=== PATIENT | female | born 1940 | race Caucasian/White ===

== ENCOUNTER → 2022-02-12 15:14 | Outpatient (BNVA) | payer MEDICARE, OTHER, SELFPAY | PROVIDERS: Family Provider Family Medicine; Visit Provider Registered Nurse Neonatal Intensive Care | DX: Z20.822 Contact with and (suspected) exposure to COVID-19 (principal); U07.1 COVID-19 | CPT/HCPCS: 87426 ==

== ENCOUNTER 2023-01-19 16:11 | Emergency (ER) | payer MEDICARE, OTHER, SELFPAY ==
[2023-01-19 16:35] VITALS: BP 159/92; PULSE 86; RESP 16; TEMP 36.4; O2SAT 94; BMI 27.1
[2023-01-19 16:58] LABS: Basophils % 0.5 %; Eosinophils # 0.1 10^3/uL (0.0-0.8); Eosinophils % 2.9 %; Hematocrit 42.9 % (37.0-47.0); Lymphocytes # 0.9 10^3/uL (0.8-4.8); Lymphocytes % 21.9 %; Mean Corpuscular HGB Conc 32.6 g/dL (30.0-36.0); Mean Corpuscular Volume 97.9 fl (81-99); Mean Platelet Volume 9.4 fL (7.4-10.4); Monocytes # 0.3 10^3/uL (0.2-0.9); Monocytes % 7.2 %; Neutrophils # 2.79 10^3/uL (1.8-7.7); Neutrophils % 67.3 %; Nucleated Red Blood Cells % 0 %; Platelet Count 171 10^3/cmm (130-400); Red Blood Count 4.38 10^6/uL (4.1-5.3); Red Cell Distribution Width 12.6 % (12.1-15.1); White Blood Count 4.2 10^3/uL (4.0-10.0)
--- NOTE | 2023-01-19 17:12 | XRR_ITS ---
PROCEDURE INFORMATION: Exam: XR Abdomen Exam date and time: 01/19/2023 5:56 PM Age: 82 years old Clinical indication: Abdominal pain; Acute; Prior surgery; Surgery date: 6+ months; Surgery type: Lt hip; Additional info: Abd pain, constipation TECHNIQUE: Imaging protocol: Radiologic exam of the abdomen. Views: Frontal supine view of the abdomen. 1 View. COMPARISON: No relevant prior studies available. FINDINGS: Gastrointestinal tract: [id number] constipation without bowel dilation to indicate obstruction. 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 Left hip arthroplasty changes in place XR/XR abdomen 1V* [id number] IMPRESSION: 1. Degenerative changes throughout the spine with vertebroplasty changes. 2. Ybao-lm-damjbvrg constipation without bowel dilation to indicate obstruction.
[2023-01-19 17:23] LABS: Alanine Aminotransferase 16 U/L (0-33); Albumin Level 4.3 g/dL (3.5-5.2); Alkaline Phosphatase 72 U/L (35-105); Anion Gap 14.2 (5-19); Aspartate Amino Transferase 25 U/L (0-32); Blood Urea Nitrogen 12 mg/dL (8-23); Calcium 9.2 mg/dL (8.5-10.5); Carbon Dioxide 30 mmol/L (22-29); Chloride 102 mmol/L (98-107); Globulin 2.6 g/dL (1.3-4.6); Glucose 95 mg/dL (65-115); Lipase 15 U/L (13-60); Osmolality Calculated 294 mOsm/kg (285-295); Potassium 4.2 mmol/L (3.5-5.1); Sodium 142 mmol/L (136-145); Total Bilirubin 0.4 mg/dL (0.15-1.2); Total Protein 6.9 g/dL (6.6-8.7)
[2023-01-19 17:46] LABS: Add Urine Culture? Yes; Add Urine Microscopic? YES; Bacteria Urine 3+ /hpf; Bilirubin Urine Neg (Negative); Blood Urine Neg (Negative); Glucose Urine UA Norm (Normal); Ketones Urine Negative (Negative); Leukocyte Esterase Urine Trace (Negative); Nitrate Urine Positive (Negative); Protein Urine Neg (Negative); Specific Gravity, Urine 1.015 (1.005-1.030); Urine Appearance Hazy (CLEAR); Urine Color Yellow (Yellow); Urobilinogen Urine Norm (Negative); pH Urine 5 (5-7)
--- NOTE | 2023-01-19 19:36 | XRR_ITS ---
PROCEDURE INFORMATION: Exam: XR Left Hip Exam date and time: 01/19/2023 7:52 PM Age: 82 years old Clinical indication: Hip pain; Left hip; Prior surgery; Surgery date: 6+ months; Surgery type: Lt hip; Additional info: Hip pain no trauma TECHNIQUE: Imaging protocol: Radiologic exam of the left hip. Views: 2 or 3 views hip with pelvis when performed. COMPARISON: CR (ABDOMEN, ) 01/19/2023 5:56 PM FINDINGS: Bones/joints: Left hip arthroplasty changes in place. Soft tissues: Scattered vascular calcifications XR/XR hip LT 2-3V wo/w pel* [id number] IMPRESSION: 1. Left hip arthroplasty changes in place. 2. Scattered vascular calcifications
--- NOTE | 2023-01-19 19:43 | W.ED.ABDPA2 ---
HPI - Abdominal Pain General: Chief Complaint: Abdominal Pain Stated Complaint: severe abd pain Time Seen by Provider: 01/19/23 18:57 History of Present Illness: Presents to the ER with a complaint of left lower abdominal pain/groin pain. Patient denies any nausea vomiting diarrhea pain. This morning patient took an enema because she was constipated and that actually made the pain worse immediately but now she says it is actually made the pain better. Patient is describing more of a sharp stabbing pain in her left hip joint than anything. Patient denies any nausea vomiting fever chills coughs colds congestion etc. has never had any pain like this before patient does have a prosthetic hip in her left side. No known trauma. Review of Systems General: Reports: 10 or more systems reviewed and unremarkable except in HPI and below Physical Exam Const: COMMON NORMALS: no acute distress, average body habitus, patient oriented x3, no limitations, healthy appearing, alert and well nourished HENMT: COMMON NORMALS: normocephalic, atraumatic, hearing grossly normal bilaterally, external ears normal, Normal external nose present and moist oral mucous membranes HEAD & SCALP: normocephalic and atraumatic NOSE: Normal external nose present EXTERNAL EAR: Yes external ears normal Neck/C-Spine: COMMON NORMALS: full ROM, no lymphadenopathy, supple, no meningeal signs, no JVD and Thyroid normal THYROID: Thyroid normal Chest: COMMONS NORMALS: normal inspection of the chest and normal palpation of entire chest wall Resp: COMMON NORMALS: normal respiratory effort, No retractions, No use of accessory muscles and clear to auscultation bilaterally AUSCULTATION: clear to auscultation bilaterally Cardio: COMMON NORMALS: no JVD, regular rate, regular rhythm, S1 normal heart sound present, S2 normal heart sound present, No gallops present (Cardio), No clicks present (Cardio), No murmurs present (Cardio) and No rub (Cardio) RATE: regular rate RHYTHM: regular rhythm HEART SOUNDS: S1 normal heart sound present and S2 normal heart sound present GI: COMMON NORMALS: Normal to inspection, nondistended, normoactive bowel sounds present, Soft to palpation, non-tender, No hepatosplenomegaly present and no masses PALPATION: Yes Soft to palpation and Yes No hepatosplenomegaly present Extremity: NARRATIVE EXTREMITY EXAM: Tenderness to palpate over left anterior hip region. Neuro: COMMON NORMALS: patient oriented x3 SENSORIUM/ORIENTATION: Yes alert MENINGEAL SIGNS: Yes no meningeal signs Course Vital Signs: Vital signs: Vital Signs Temperature 97.6 F 01/19/23 16:35 Pulse Rate 86 01/19/23 16:35 Respiratory Rate 16 01/19/23 16:35 Blood Pressure 159/92 01/19/23 16:35 Pulse Oximetry 94 01/19/23 16:35 Oxygen Delivery Me thod Room Air 01/19/23 16:35 MDM - Abdominal Pain Medical Decision Making Presented to the ER with complaints of left lower quadrant abdominal/pelvic hip pain starting today. Physical exam was performed lab work was obtained, x-ray was obtained showed patient's mild to moderately constipated left hip arthroplasty look good and blood work was benign other than urine showing a urinary tract infection. Patient was given Bactrim DS and [place] in the ER as well as prescriptions for both to go home on. Patient should follow-up with her primary care provider in the next week for further treatment. Differential Diagnosis Likely constipation; Unlikely abdominal pain, acute appendicitis, calculus of kidney, diverticulitis, endometriosis, gastroenteritis or small bowel obstruction Medical Records I reviewed the patient's medical records. Lab Data I reviewed the patient's lab results. 01/19/23 16:48 01/19/23 16:48 Labs/Radiology: Radiology Impressions Abdomen X-Ray 01/19/23 17:12 IMPRESSION: 1. Degenerative changes throughout the spine with vertebroplasty changes. 2. Rncd-ag-ppcyoriz constipation without bowel dilation to indicate obstruction. Hip/Pelvis X-Ray 01/19/23 19:36 IMPRESSION: 1. Left hip arthroplasty changes in place. 2. Scattered vascular calcifications Laboratory Results WBC 4.2 10^3/uL (4.0-10.0) 01/19/23 16:48 RBC 4.38 10^6/uL (4.1-5.3) 01/19/23 16:48 Hgb 14.0 g/dL (11.5-15.3) 01/19/23 16:48 Hct 42.9 % (37.0-47.0) 01/19/23 16:48 MCV 97.9 fl (81-99) 01/19/23 16:48 MCH 32.0 pg (28.0-34.0) 01/19/23 16:48 MCHC 32.6 g/dL (30.0-36.0) 01/19/23 16:48 RDW 12.6 % (12.1-15.1) 01/19/23 16:48 Plt Count 171 10^3/cmm (130-400) 01/19/23 16:48 MPV 9.4 fL (7.4-10.4) 01/19/23 16:48 Neut % (Auto) 67.3 % 01/19/23 16:48 Lymph % (Auto) 21.9 % 01/19/23 16:48 Evangeline % (Auto) 7.2 % 01/19/23 16:48 Eos % (Auto) 2.9 % 01/19/23 16:48 Baso % (Auto) 0.5 % 01/19/23 16:48 Neut # (Auto) 2.79 10^3/uL (1.8-7.7) 01/19/23 16:48 Lymph # (Auto) 0.9 10^3/uL (0.8-4.8) 01/19/23 16:48 Evangeline # (Auto) 0.3 10^3/uL (0.2-0.9) 01/19/23 16:48 Eos # (Auto) 0.1 10^3/uL (0.0-0.8) 01/19/23 16:48 Baso # (Auto) 0.0 10^3/uL (0.0-0.1) 01/19/23 16:48 Nucleated RBC % (auto) 0 % 01/19/23 16:48 Nucleated RBCs # 0.0 /100WBC 01/19/23 16:48 Sodium 142 mmol/L (136-145) 01/19/23 16:48 Potassium 4.2 mmol/L (3.5-5.1) 01/19/23 16:48 Chloride 102 mmol/L (98-107) 01/19/23 16:48 Carbon Dioxide 30 mmol/L (22-29) H 01/19/23 16:48 Anion Gap 14.2 (5-19) 01/19/23 16:48 BUN 12 mg/dL (8-23) 01/19/23 16:48 Creatinine 0.6 mg/dL (0.5-0.9) 01/19/23 16:48 GFR Calculation Not Reportable 01/19/23 16:48 Glucose 95 mg/dL (65-115) 01/19/23 16:48 Calculated Osmolality 294 mOsm/kg (285-295) 01/19/23 16:48 Calcium 9.2 mg/dL (8.5-10.5) 01/19/23 16:48 Total Bilirubin 0.4 mg/dL (0.15-1.2) 01/19/23 16:48 AST 25 U/L (0-32) 01/19/23 16:48 ALT 16 U/L (0-33) 01/19/23 16:48 Alkaline Phosphatase 72 U/L (35-105) 01/19/23 16:48 Total Protein 6.9 g/dL (6.6-8.7) 01/19/23 16:48 Albumin 4.3 g/dL (3.5-5.2) 01/19/23 16:48 Globulin 2.6 g/dL (1.3-4.6) 01/19/23 16:48 Lipase 15 U/L (13-60) 01/19/23 16:48 Urine Color Yellow (Yellow) 01/19/23 17:06 Urine Appearance Hazy (CLEAR) A 01/19/23 17:06 Urine pH 5 (5-7) 01/19/23 17:06 Ur Specific [place] 1.015 (1.005-1.030) 01/19/23 17:06 Urine Protein Neg (Negative) 01/19/23 17:06 Urine Glucose (UA) Norm (Normal) 01/19/23 17:06 Urine Ketones Negative (Negative) 01/19/23 17:06 Urine Blood Neg (Negative) 01/19/23 17:06 Urine Nitrate Positive (Negative) H 01/19/23 17:06 Urine Bilirubin Neg (Negative) 01/19/23 17:06 Urine Urobilinogen Norm mg/dL (Negative) 01/19/23 17:06 Ur Leukocyte Esterase Trace (Negative) H 01/19/23 17:06 Urine RBC None /hpf (0-2) 01/19/23 17:06 Urine WBC 5-10 /hpf (0-5) H 01/19/23 17:06 Ur Squamous Epith Cells 5-10 /hpf (0-5) H 01/19/23 17:06 Amorphous Sediment Not Reportable 01/19/23 17:06 Urine Bacteria 3+ /hpf (NONE) H 01/19/23 17:06 Discharge Plan Discharge Patient Disposition: Home Clinical Impression: Acute pain of left hip, Acute constipation Urinary tract infection Qualifiers: Urinary tract infection type: acute cystitis Hematuria presence: without hematuria Qualified Code(s): N30.00 - Acute cystitis without hematuria Condition: Stable Prescriptions: New Bactrim DS 800-160 mg tablet 1 tab PO BID 7 Days Qty: 14 0RF hydrocodone-acetaminophen 2.5-325 mg tablet 1 tab PO Q8H PRN (Reason: pain) Qty: 14 0RF No Action omeprazole 20 mg capsule,delayed release(DR/EC) 20 mg PO DAILY celecoxib [Celebrex] 50 mg capsule 50 mg PO BID methylprednisolone [Medrol (Derik)] 4 mg tablets,dose pack See Rx Instructions PO PER PKG DIR Qty: 21 0RF Rx Instructions: PO PER PKG DIR Discharge Orders: Discharge ED (Routine); Ordered 01/19/23 Ordered By: Nicolás Brock Referrals: Perri Montes MD [Family Provider] - Liborio David MD [Primary Care Provider] - Patient Instructions: Opioid Safety, Pain Management Activity Restrictions/Additional Instructions: Take all medicine as directed, please finish your antibiotics, please follow-up with your primary care provider within the next week for further evaluation and treatment as needed. Coding Level of Care Code ED [facility]
[2023-01-19 21:00] VITALS: BP 145/91; PULSE 77; RESP 16; O2SAT 92
[2023-01-19] MEDS: sulfamethoxazole-trimeth DS 160-800 mg Tablet 1 TAB PO (21:01)
[2023-01-19] MEDS: HYDROcodone-acetaminophen 5-325 mg Tablet 1 TAB PO (21:01)
== END 2023-01-19 21:08 | disposition home or self-care (01) ==
PROVIDERS: Emergency Provider Emergency Medicine; Family Provider Family Medicine; PCP Specialist
DX: N30.00 Acute cystitis without hematuria (principal); K59.00 Constipation, unspecified; M25.552 Pain in left hip
CPT/HCPCS: 36415; 73502; 74018; 80053; 81001; 83690; 85025; 87077; 87086; 87186; 99284

== ENCOUNTER → 2023-01-27 08:31 | Outpatient (BNVA) | payer MEDICARE, OTHER, SELFPAY | PROVIDERS: Family Provider Family Medicine; PCP Family Medicine; Visit Provider Internal Medicine Rheumatology | DX: M62.81 Muscle weakness (generalized) (principal); R76.8 Other specified abnormal immunological findings in serum; R06.02 Shortness of breath; R13.10 Dysphagia, unspecified; Z90.49 Acquired absence of other specified parts of digestive tract | CPT/HCPCS: 36415; 82085; 82550; 86160; 86162; 86235; 86255; 86376; 86800; 99204 ==

== ENCOUNTER 2023-02-06 08:17 | Outpatient (CLI) | payer MEDICARE, OTHER, SELFPAY ==
--- NOTE | 2023-02-06 08:30 | FL_ITS ---
WS: [id number] Barium swallow and esophagram, 02/06/2023 Clinical Data: T17.308A - Unspecified foreign body in larynx causing oth... Comparison: None. Fluoroscopy time: 1min [id number] # of spot films: 19 Findings: The patient swallowed the thick and thin barium, and it flowed through the hypopharynx without hesita tion. No stricture, mass, polyp or erosion was seen. There was minimal penetration and possible aspir ation. The barium entered the esophagus and there was fair motility throughout. Tertiary contractions were s een distally. No hiatal hernia, stricture, polyp, mass, erosion or ulcer was noted. The gastroesophag eal junction was patulous and there is minimal reflux.. Impression: 1. Minimal penetration and possible aspiration. 2. Tertiary contractions of the distal esophagus and there was patulous entry of barium into the stom ach with mild gastroesophageal reflux
== END 2023-02-06 08:18 | disposition home or self-care (01) ==
LOC: RAD 08:18
PROVIDERS: PCP Family Medicine; Visit Provider Internal Medicine Rheumatology
DX: T17.308A Unspecified foreign body in larynx causing other injury, initial encounter (principal); R13.10 Dysphagia, unspecified; X58.XXXA Exposure to other specified factors, initial encounter; K21.9 Gastro-esophageal reflux disease without esophagitis
CPT/HCPCS: 74220

== ENCOUNTER 2023-02-12 13:19 | Outpatient (CLI) | payer MEDICARE, OTHER, SELFPAY ==
--- NOTE | 2023-02-12 13:30 | CT_ITS ---
WS: [id number] CT CHEST TECHNIQUE: Noncontrast CT of the chest with coronal and sagittal reformatted images. CLINICAL INFORMATION: R06.02 - Shortness of breath COMPARISON: None. DLP: 178.[address] scans at [facility] use at least one of these dose optimization techniques: automated e xposure control; mA and/or kV adjustment per patient size (includes targeted exams where dose is matc hed to clinical indication); or iterative reconstruction. FINDINGS: Numerous hepatic cysts largest in the RIGHT hepatic lobe measuring 5.7 x 4.6 cm. Aortic calcification . No mediastinal or hilar lymphadenopathy. A few small thyroid nodules. Posterior projecting RIGHT th yroid nodule with peripheral calcification measuring 15 mm. Coronary calcification. Normal caliber no ncontrast thoracic aorta. No axillary lymphadenopathy. Mild thoracic curve. Mild thoracic kyphosis. Shallow inspiration. Subsegmental atelectasis in the richard g bases RIGHT greater than LEFT. No suspicious pulmonary parenchymal opacities. Bronchiectasis bilate ral lower lobes. IMPRESSION: 1. Shallow inspiration. 2. Subsegmental ectasis in the lung bases with bronchiectasis. 3. No focal consolidation or pleural fluid. 4. Multiple hepatic cysts the largest in the RIGHT lobe measuring 5.7 x 4.6 cm 5. Bilateral thyroid nodules.
== END 2023-02-12 13:20 | disposition home or self-care (01) ==
LOC: RAD 13:20
PROVIDERS: PCP Family Medicine; Visit Provider Internal Medicine Rheumatology
DX: R06.02 Shortness of breath (principal); M62.81 Muscle weakness (generalized); R76.8 Other specified abnormal immunological findings in serum; J47.9 Bronchiectasis, uncomplicated; K76.89 Other specified diseases of liver; E04.1 Nontoxic single thyroid nodule
CPT/HCPCS: 71250

== ENCOUNTER → 2023-03-03 11:33 | Outpatient (BNVA) | payer MEDICARE, OTHER, SELFPAY | PROVIDERS: PCP Family Medicine; Visit Provider Internal Medicine Rheumatology | DX: M62.81 Muscle weakness (generalized) (principal); R76.8 Other specified abnormal immunological findings in serum; Z79.899 Other long term (current) drug therapy; Z90.49 Acquired absence of other specified parts of digestive tract; G72.49 Other inflammatory and immune myopathies, not elsewhere classified | CPT/HCPCS: 99215 ==

== ENCOUNTER 2023-04-07 10:33 | Outpatient (CLI) | payer MEDICARE, OTHER, SELFPAY ==
[2023-04-07 11:17] LABS: Basophils % 0.5 %; Eosinophils # 0.1 10^3/uL (0.0-0.8); Eosinophils % 1.4 %; Hematocrit 43.9 % (36-47); Lymphocytes # 0.4 10^3/uL (0.8-4.8); Lymphocytes % 6.7 %; Mean Corpuscular HGB Conc 31.9 g/dL (30-55); Mean Corpuscular Hemoglobin 32.4 pg (27-33); Mean Corpuscular Volume 101.6 fl (85-98); Mean Platelet Volume 9.5 fL (7.4-10.4); Monocytes # 0.5 10^3/uL (0.2-0.9); Monocytes % 7.5 %; Neutrophils % 83.6 %; Nucleated Red Blood Cells % 0 %; Platelet Count 198 10^3/cmm (157-399); Red Blood Count 4.32 10^6/uL (3.85-5.65); Red Cell Distribution Width 14.5 % (12.1-15.1); White Blood Count 6.23 10^3/uL (3.29-11.43)
[2023-04-07 11:31] LABS: Erythrocyte Sedimentation Rate 8 mm/hr (0-15)
[2023-04-07 11:40] LABS: Alanine Aminotransferase 19 U/L (0-33); Alkaline Phosphatase 77 U/L (35-105); Aspartate Amino Transferase 23 U/L (0-32); C Reactive Protein 23.3 mg/L (0.0-4.9); Globulin 2.8 g/dL (1.3-4.6); Total Bilirubin 0.5 mg/dL (0.15-1.2); Total Protein 6.8 g/dL (6.6-8.7)
== END 2023-04-07 10:34 | disposition home or self-care (01) ==
LOC: LAB 10:34
PROVIDERS: PCP Family Medicine; Visit Provider Internal Medicine Rheumatology
DX: M62.81 Muscle weakness (generalized) (principal); R76.8 Other specified abnormal immunological findings in serum; Z79.899 Other long term (current) drug therapy; M60.9 Myositis, unspecified
CPT/HCPCS: 36415; 80076; 81401; 82565; 85025; 85651; 86140

== ENCOUNTER 2023-04-29 14:22 | Outpatient (CLI) | payer MEDICARE, OTHER, SELFPAY ==
[2023-04-29 15:39] LABS: Basophils % 0.5 %; Eosinophils # 0.1 10^3/uL (0.0-0.8); Eosinophils % 1.3 %; Hematocrit 41.7 % (36-47); Lymphocytes # 0.5 10^3/uL (0.8-4.8); Lymphocytes % 8.6 %; Mean Corpuscular HGB Conc 32.4 g/dL (30-55); Mean Corpuscular Hemoglobin 32.8 pg (27-33); Mean Corpuscular Volume 101.2 fl (85-98); Mean Platelet Volume 10.3 fL (7.4-10.4); Monocytes # 0.4 10^3/uL (0.2-0.9); Monocytes % 6.8 %; Neutrophils # 4.98 10^3/uL (1.8-7.7); Neutrophils % 82.3 %; Nucleated Red Blood Cells % 0 %; Platelet Count 199 10^3/cmm (157-399); Red Blood Count 4.12 10^6/uL (3.85-5.65); Red Cell Distribution Width 14.1 % (12.1-15.1); White Blood Count 6.05 10^3/uL (3.29-11.43)
[2023-04-29 15:42] LABS: Erythrocyte Sedimentation Rate 27 mm/hr (0-15)
[2023-04-29 16:10] LABS: Alanine Aminotransferase 31 U/L (0-33); Albumin Level 4.1 g/dL (3.5-5.2); Alkaline Phosphatase 146 U/L (35-105); Aspartate Amino Transferase 33 U/L (0-32); C Reactive Protein 35.3 mg/L (0.0-4.9); Creatine Phosphokinase 51 U/L (26-192); Free T4 Free Thyroxine 1.23 ng/dL (0.82-1.77); Immunoglobulin IGA 161 mg/dL (70-400); Thyroid Stimulating Hormone 1.03 uIU/mL (0.27-4.20); Total Bilirubin 0.4 mg/dL (0.15-1.2); Total Protein 7.1 g/dL (6.6-8.7)
[2023-05-01 14:35] LABS: Aldolase 5.1 U/L (< OR = 8.1)
[2023-05-04 12:25] LABS: Myositis EJ AB <11 SI (<11); Myositis JO-1 AB <11 SI (<11); Myositis MDA-5 AB <11 SI (<11); Myositis MI-2 Alpha AB 12 SI (<11); Myositis MI-2 Beta AB <11 SI (<11); Myositis NXP-2AB <11 SI (<11); Myositis OJ AB <11 SI (<11); Myositis PL-12 AB <11 SI (<11); Myositis PL-7 AB <11 SI (<11); Myositis SRP AB <11 SI (<11); Myositis TIF-1y AB <11 SI (<11)
--- NOTE | 2023-05-04 16:00 | PC.PHAR ---
Re: Octagam order dated 04/28/23. spoke with Dr.I Nathan choudhary to use privigen over octagam.
[2023-05-13 12:10] LABS: TPMT Activity 15
== END 2023-04-29 14:23 | disposition home or self-care (01) ==
LOC: LAB 14:23
PROVIDERS: PCP Family Medicine; Visit Provider Internal Medicine Rheumatology
DX: G72.49 Other inflammatory and immune myopathies, not elsewhere classified (principal); R76.8 Other specified abnormal immunological findings in serum; Z79.899 Other long term (current) drug therapy; M62.81 Muscle weakness (generalized)
CPT/HCPCS: 36415; 80076; 82085; 82550; 82565; 82657; 82784; 84182; 84439; 84443; 85025; 85651; 86140; 86235

== ENCOUNTER 2023-06-24 12:25 | Outpatient (CLI) | payer MEDICARE, OTHER, SELFPAY ==
--- NOTE | 2023-06-24 12:35 | XR_ITS ---
WS: [id number] PA and lateral chest, 06/24/2023 Clinical Data: R06.02 - Shortness of breath Comparison: None. Findings: There is minimal bibasilar opacity which could represent atelectasis and/or pneumonia. The diaphragms are elevated. No nodules, masses or effusions are seen. The heart is normal. No pneumothor ax is present. The aortic arch and descending thoracic aorta show calcification and tortuosity. There are cholecystectomy clips in the right upper quadrant. There is vertebroplasty cement in the T12 and L1 vertebral bodies. There is a probable enchondroma or bone infarct in the proximal right humerus. Impression: 1. Minimal bibasilar opacity. 2. Elevation of the the diaphragms. 3. Atherosclerosis.
[2023-06-24 12:42] LABS: Basophils % 0.3 %; Eosinophils % 0.3 %; Hematocrit 42.7 % (36-47); Lymphocytes # 0.2 10^3/uL (0.8-4.8); Lymphocytes % 2.4 %; Mean Corpuscular HGB Conc 32.8 g/dL (30-55); Mean Corpuscular Hemoglobin 34.2 pg (27-33); Mean Corpuscular Volume 104.4 fl (85-98); Mean Platelet Volume 9.2 fL (7.4-10.4); Monocytes # 0.5 10^3/uL (0.2-0.9); Monocytes % 6.9 %; Neutrophils # 6.76 10^3/uL (1.8-7.7); Neutrophils % 89.7 %; Nucleated Red Blood Cells % 0 %; Platelet Count 196 10^3/cmm (157-399); Red Blood Count 4.09 10^6/uL (3.85-5.65); Red Cell Distribution Width 15.7 % (12.1-15.1); White Blood Count 7.53 10^3/uL (3.29-11.43)
[2023-06-24 13:04] LABS: Alanine Aminotransferase 11 U/L (0-33); Albumin Level 3.7 g/dL (3.5-5.2); Alkaline Phosphatase 69 U/L (35-105); Aspartate Amino Transferase 18 U/L (0-32); C Reactive Protein 71.9 mg/L (0.0-4.9); Creatine Phosphokinase 24 U/L (26-192); Globulin 3.2 g/dL (1.3-4.6); Total Bilirubin 0.6 mg/dL (0.15-1.2); Total Protein 6.9 g/dL (6.6-8.7)
[2023-06-26 13:10] LABS: Aldolase 6.3 U/L (< OR = 8.1)
== END 2023-06-24 12:26 | disposition home or self-care (01) ==
LOC: LAB 12:25
PROVIDERS: PCP Family Medicine; Visit Provider Internal Medicine Rheumatology
DX: M62.81 Muscle weakness (generalized) (principal); G72.49 Other inflammatory and immune myopathies, not elsewhere classified; Z79.899 Other long term (current) drug therapy; R06.02 Shortness of breath
CPT/HCPCS: 36415; 71046; 80076; 82085; 82550; 82565; 85025; 86140

== ENCOUNTER 2023-07-16 08:52 | Outpatient (CLI) | payer MEDICARE, OTHER, SELFPAY ==
[2023-07-16 09:10] VITALS: PULSE 109; RESP 20; O2SAT 94
[2023-07-16] MEDS: albuterol 2.5 mg/3 mL Neb INHALATION (09:10)
[2023-07-16 09:15] VITALS: PULSE 106
== END 2023-07-16 08:53 | disposition home or self-care (01) ==
PROVIDERS: PCP Family Medicine; Visit Provider Internal Medicine Rheumatology
DX: R93.89 Abnormal findings on diagnostic imaging of other specified body structures (principal); R06.09 Other forms of dyspnea; R94.2 Abnormal results of pulmonary function studies
CPT/HCPCS: 94060; 94726; J7613

== ENCOUNTER 2023-07-21 09:00 | Oncology outpatient (recurring) (ONCR) | payer MEDICARE, OTHER, SELFPAY ==
[2023-07-20] VITALS (10 sets, daily range): BP systolic 133–168; BP diastolic 76–92; PULSE 78–87; RESP 16–18; TEMP 36.1–37; O2SAT 91–96; BMI 26.9
[2023-07-20] MEDS: sodium chloride 0.9% 250 ML 75 ML IV (09:37)
[2023-07-20] MEDS: acetaminophen 325 mg Tablet 650 MG PO (09:37)
[2023-07-20] MEDS: diphenhydrAMINE 50 mg/mL SDV 1mL 25 MG IVP (09:39)
[2023-07-20] MEDS: methylPREDNISolone sod succ 40 mg/mL INJ IVP (09:44)
[2023-07-20] MEDS: immune globulin (Privigen ONC) 40 GM, immune globulin (Privigen-ONC) 10 GM in empty fle... IV (10:15)
[2023-07-21] VITALS (10 sets, daily range): BP systolic 136–173; BP diastolic 81–96; PULSE 72–83; RESP 14–17; TEMP 35.7–36.7; O2SAT 92–94
[2023-07-21] MEDS: acetaminophen 325 mg Tablet 650 MG PO (09:55)
[2023-07-21] MEDS: sodium chloride 0.9% 250 ML 75 ML IV (09:57)
[2023-07-21] MEDS: diphenhydrAMINE 50 mg/mL SDV 1mL 25 MG IVP (10:00)
[2023-07-21] MEDS: methylPREDNISolone sod succ 40 mg/mL INJ IVP (10:05)
[2023-07-21] MEDS: immune globulin (Privigen ONC) 40 GM, immune globulin (Privigen-ONC) 10 GM in empty fle... IV (10:30)
== END 2023-07-21 23:59 | disposition home or self-care (01) ==
PROVIDERS: PCP Family Medicine; Visit Provider Internal Medicine Rheumatology
DX: G72.49 Other inflammatory and immune myopathies, not elsewhere classified (principal); Z53.9 Procedure and treatment not carried out, unspecified reason
CPT/HCPCS: 96365; 96366; 96375; J1200; J1459; J2920; J7050

== ENCOUNTER 2023-07-22 08:54 | Oncology outpatient (recurring) (ONCR) | payer MEDICARE, OTHER, SELFPAY ==
[2023-07-22] VITALS (11 sets, daily range): BP systolic 138–167; BP diastolic 79–91; PULSE 67–86; RESP 16–18; TEMP 35.9–36.4; O2SAT 91–98
[2023-07-22] MEDS: sodium chloride 0.9% 250 ML 75 ML IV (09:52)
[2023-07-22] MEDS: acetaminophen 325 mg Tablet 650 MG PO (09:52)
[2023-07-22] MEDS: diphenhydrAMINE 50 mg/mL SDV 1mL 25 MG IVP (09:54)
[2023-07-22] MEDS: methylPREDNISolone sod succ 40 mg/mL INJ IVP (09:59)
[2023-07-22] MEDS: immune globulin (Privigen ONC) 40 GM, immune globulin (Privigen-ONC) 10 GM in empty fle... IV (10:40)
--- NOTE | 2023-07-22 14:30 | XR_ITS ---
WS: [id number] Chest 2 views, 07/22/2023 Clinical Data: crackles yue Comparison: Two-view chest, 06/24/2023 Findings: No nodules, masses or effusions are seen. The diaphragms are elevated and there are are opa cities over the surfaces which probably represent atelectasis and/or minimal pneumonia. The heart is normal. The pulmonary vascularity is not increased. No pneumonia or pneumothorax is seen. The aortic arch and descending thoracic aorta show tortuosity. There is a dextroscoliosis of the thoracic and edgar mbar spines. There is vertebroplasty material in the T12 and L1 vertebral bodies. There is an enchond kristine or bone infarct in the proximal right humerus. There are clips in the right upper quadrant from a cholecystectomy. Impression: 1. Minimal bibasilar opacities unchanged. 2. Diaphragmatic elevation. 3. Atherosclerosis.
[2023-07-22 15:40] LABS: Add Urine Microscopic? YES; Bilirubin Urine Neg (Negative); Blood Urine 2+ (Negative); Glucose Urine UA Norm (Normal); Ketones Urine Negative (Negative); Leukocyte Esterase Urine Negative (Negative); Nitrate Urine Negative (Negative); Protein Urine Neg (Negative); Specific Gravity, Urine 1.015 (1.005-1.030); Urine Appearance Cloudy (CLEAR); Urine Color Yellow (Yellow); Urobilinogen Urine Norm (Negative); pH Urine 6 (5-7)
[2023-07-22 16:04] LABS: Amorphous Sediment Urine 1+ /hpf; Bacteria Urine 3+ /hpf; Mucus Urine 1+ /hpf; Squamous Epithelial Cell Urine 0-4 /hpf (0-5); Transitional Epi Cells Urine 0-4 /hpf
[2023-07-22 16:05] LABS: Add Urine Culture? Yes; Oval Fat Bodies Urine RARE /hpf
--- NOTE | 2023-07-22 17:46 | PC.NURSE ---
Patient receiving day 3 IVIG and started having SOB, chest heaviness, and confusion. Infusion stopped VS taken. 02 sat at 90% Messaged Earlene about patient's status. Earlene spoke to Dr. Villegas and he called this nurse at 1315. He told me to stop the infusion and observe her for 1 hour. If she continues to have SOB send her to go get an chest xray. Patient observed for an hour and VS taken every 15 mins to 20 mins. This nurse listened to her lungs and she had BL crackles in the lower base. The patient had c/o symptoms of UTI. This nurse messaged both Dr. Villegas and Earlene to let her know. Dr. Pink gave VO for UA and chest Xray. UA done and patient sent to have Xray done. Dr. Pink called this nurse back after I had concerns about her 02 stat without 02 was 91%. Dr. Pink wanted the patient to come back after her xray was done and observe the patient for 30 mins. without any 02. He also wanted me to let the patient know that if she gets SOB over the weekend to go to the ER. Patient stable at 1600 with B/P 138/79, HR: 86, 02 sat: 92% on RA. Patient sent home with daughter with instructions to go to the ER if increased SOB. Also the patient will need to call next week to let Dr. Villegas know how she is doing. Both acknowledged understanding. Also I messaged Earlene and let her know that UA and xray report are back and that if the patient needed any antibiotics that she uses [facility]. I let the daughter and patient know that Earlene will have Dr. Villegas look at the results and someone will get a hold of them. Patient and daughter had no other questions.
== END 2023-07-22 23:59 | disposition home or self-care (01) ==
PROVIDERS: PCP Family Medicine; Visit Provider Internal Medicine Rheumatology
DX: G72.49 Other inflammatory and immune myopathies, not elsewhere classified (principal); R39.15 Urgency of urination; R35.0 Frequency of micturition; R30.0 Dysuria; R06.02 Shortness of breath; M62.81 Muscle weakness (generalized); Z79.899 Other long term (current) drug therapy; I70.90 Unspecified atherosclerosis
CPT/HCPCS: 71046; 81001; 87077; 87086; 87186; 96365; 96366; J1200; J1459; J2920; J7050

== ENCOUNTER → 2023-08-10 13:26 | Outpatient (BNVA) | payer MEDICARE, OTHER, SELFPAY | PROVIDERS: PCP Family Medicine; Visit Provider Specialist | DX: G72.49 Other inflammatory and immune myopathies, not elsewhere classified (principal); M62.81 Muscle weakness (generalized); G62.89 Other specified polyneuropathies | CPT/HCPCS: 95886; 95913 ==

== ENCOUNTER → 2023-08-11 15:00 | Outpatient (BNVA) | payer MEDICARE, OTHER, SELFPAY | PROVIDERS: PCP Family Medicine; Visit Provider Specialist | DX: M60.9 Myositis, unspecified (principal); M62.81 Muscle weakness (generalized); R29.898 Other symptoms and signs involving the musculoskeletal system; Z90.49 Acquired absence of other specified parts of digestive tract; R76.8 Other specified abnormal immunological findings in serum; Z79.899 Other long term (current) drug therapy | CPT/HCPCS: 36415; 82607; 83516; 83519; 95860; 95870; 99202; 99215 ==

== ENCOUNTER 2023-08-18 08:00 | Oncology outpatient (recurring) (ONCR) | payer MEDICARE, OTHER, SELFPAY ==
[2023-08-17 08:06] VITALS: BP 144/88; PULSE 109; RESP 20; TEMP 36.3; O2SAT 93
[2023-08-17] MEDS: acetaminophen 325 mg Tablet 650 MG PO (08:46)
[2023-08-17] MEDS: diphenhydrAMINE 50 mg/mL SDV 1mL 25 MG IVP (08:47)
[2023-08-17] MEDS: methylPREDNISolone sod succ 40 mg/mL INJ IVP (08:51)
[2023-08-17] MEDS: immune globulin (Privigen ONC) 40 GM, immune globulin (Privigen-ONC) 10 GM in empty fle... IV (09:40)
[2023-08-17 10:10] VITALS: BP 130/82; PULSE 84; O2SAT 91
[2023-08-17 10:46] VITALS: BP 137/82; PULSE 84; RESP 17; TEMP 36.2; O2SAT 94
[2023-08-17 11:15] VITALS: BP 132/84; PULSE 84; RESP 16; TEMP 36.6; O2SAT 92
[2023-08-17 13:00] VITALS: BP 146/84; PULSE 81; RESP 17; TEMP 36.2; O2SAT 95
[2023-08-18 08:14] VITALS: BP 125/80; PULSE 82; RESP 18; TEMP 37.1; O2SAT 92
[2023-08-18] MEDS: methylPREDNISolone sod succ 40 mg/mL INJ IVP (08:28)
[2023-08-18] MEDS: acetaminophen 325 mg Tablet 650 MG PO (08:28)
[2023-08-18] MEDS: sodium chloride 0.9% 250 ML 75 ML IV (08:29)
[2023-08-18 08:55] VITALS: BP 132/78; PULSE 78; RESP 18; TEMP 36.6; O2SAT 90
[2023-08-18] MEDS: immune globulin (Privigen ONC) 40 GM, immune globulin (Privigen-ONC) 10 GM in empty fle... IV ×2 (08:55→09:55)
[2023-08-18 09:25] VITALS: BP 131/78; PULSE 78; RESP 18; TEMP 36.4; O2SAT 92
[2023-08-18 09:55] VITALS: BP 142/80; PULSE 76; RESP 18; TEMP 36.9; O2SAT 92
[2023-08-18 10:25] VITALS: BP 153/91; PULSE 81; RESP 18; TEMP 36.8; O2SAT 92
[2023-08-18 11:40] VITALS: BP 157/92; PULSE 83; RESP 18; TEMP 36.5; O2SAT 94
== END 2023-08-18 23:59 | disposition home or self-care (01) ==
PROVIDERS: PCP Family Medicine; Visit Provider Internal Medicine Rheumatology
DX: G72.49 Other inflammatory and immune myopathies, not elsewhere classified (principal); Z53.9 Procedure and treatment not carried out, unspecified reason
CPT/HCPCS: 96365; 96366; 96375; J1200; J1459; J2920; J7050

== ENCOUNTER 2023-08-19 07:47 | Oncology outpatient (recurring) (ONCR) | payer MEDICARE, OTHER, SELFPAY ==
[2023-08-19] MEDS: sodium chloride 0.9% 250 ML 75 ML IV (08:24)
[2023-08-19] MEDS: acetaminophen 325 mg Tablet 650 MG PO (08:28)
[2023-08-19] MEDS: methylPREDNISolone sod succ 40 mg/mL INJ IVP (08:29)
[2023-08-19 09:05] VITALS: BP 143/83; PULSE 94; RESP 16; TEMP 36.2; O2SAT 95
[2023-08-19] MEDS: immune globulin (Privigen ONC) 40 GM, immune globulin (Privigen-ONC) 10 GM in empty fle... 48.2000000000000028 GM IV (09:05)
[2023-08-19 09:35] VITALS: BP 148/85; PULSE 92; RESP 16; TEMP 36.6; O2SAT 92
[2023-08-19 10:05] VITALS: BP 152/89; PULSE 92; RESP 17; TEMP 36.3; O2SAT 92
[2023-08-19 10:35] VITALS: BP 161/95; PULSE 94; RESP 16; TEMP 36.8; O2SAT 90
[2023-08-19 11:44] VITALS: BP 152/90; PULSE 98; RESP 16; TEMP 36.3; O2SAT 94
[2023-08-19 12:00] VITALS: BP 152/90; PULSE 98; RESP 16; TEMP 36.3; O2SAT 94
== END 2023-08-20 23:59 | disposition home or self-care (01) ==
PROVIDERS: PCP Family Medicine; Visit Provider Internal Medicine Rheumatology
DX: G72.49 Other inflammatory and immune myopathies, not elsewhere classified (principal)
CPT/HCPCS: 96365; 96366; 96375; J1459; J2920; J7050

== ENCOUNTER → 2023-09-07 09:14 | Outpatient (BNVA) | payer MEDICARE, OTHER, SELFPAY | PROVIDERS: PCP Family Medicine; Visit Provider Podiatrist Foot & Ankle Surgery | DX: M21.611 Bunion of right foot (principal); M21.612 Bunion of left foot; M20.41 Other hammer toe(s) (acquired), right foot; M20.42 Other hammer toe(s) (acquired), left foot; L60.3 Nail dystrophy; I73.9 Peripheral vascular disease, unspecified | CPT/HCPCS: 11721; 99203 ==

== ENCOUNTER → 2023-10-14 10:59 | Outpatient (BNVA) | payer MEDICARE, OTHER, SELFPAY | PROVIDERS: PCP Family Medicine; Visit Provider Family Medicine | DX: E87.70 Fluid overload, unspecified (principal) | CPT/HCPCS: 80053 ==

== ENCOUNTER → 2023-11-17 08:48 | Outpatient (BNVA) | payer MEDICARE, OTHER, SELFPAY | PROVIDERS: PCP Family Medicine; Visit Provider Podiatrist Foot & Ankle Surgery | DX: M21.611 Bunion of right foot (principal); M21.612 Bunion of left foot; M20.41 Other hammer toe(s) (acquired), right foot; M20.42 Other hammer toe(s) (acquired), left foot; L60.3 Nail dystrophy; I73.9 Peripheral vascular disease, unspecified | CPT/HCPCS: 11721 ==

== ENCOUNTER → 2023-11-30 12:25 | Outpatient (BNVA) | payer OTHER, SELFPAY | PROVIDERS: PCP Family Medicine; Visit Provider Psychiatry & Neurology Neurology | DX: M62.81 Muscle weakness (generalized) (principal); R76.8 Other specified abnormal immunological findings in serum; G72.49 Other inflammatory and immune myopathies, not elsewhere classified; E55.9 Vitamin D deficiency, unspecified; Z79.899 Other long term (current) drug therapy; L40.9 Psoriasis, unspecified; E87.70 Fluid overload, unspecified; R53.1 Weakness; I73.9 Peripheral vascular disease, unspecified; M54.2 Cervicalgia; R29.2 Abnormal reflex; R13.10 Dysphagia, unspecified; H53.2 Diplopia; R53.83 Other fatigue; R26.9 Unspecified abnormalities of gait and mobility | CPT/HCPCS: 36415; 82306; 82746; 83519; 86038; 86376; 86592; 86800 ==

== ENCOUNTER → 2024-01-07 11:56 | Outpatient (BNVA) | payer MEDICARE, OTHER, SELFPAY | PROVIDERS: PCP Family Medicine; Visit Provider Internal Medicine | DX: E05.90 Thyrotoxicosis, unspecified without thyrotoxic crisis or storm (principal); R79.89 Other specified abnormal findings of blood chemistry; R54 Age-related physical debility | CPT/HCPCS: 99204 ==

== ENCOUNTER 2024-01-14 12:50 | Outpatient (CLI) | payer OTHER, SELFPAY ==
[2024-01-14 14:24] LABS: Cortisol Random 5.01 ug/dL (2.47-19.5); Free T4 Free Thyroxine 1.32 ng/dL (0.82-1.77); Thyroid Stimulating Hormone 0.24 uIU/mL (0.27-4.20)
[2024-01-15 05:08] LABS: T3 Total 131 ng/dL (76-181)
== END 2024-01-14 12:51 | disposition home or self-care (01) ==
LOC: LAB 12:53
PROVIDERS: PCP Family Medicine; Visit Provider Internal Medicine
DX: E05.90 Thyrotoxicosis, unspecified without thyrotoxic crisis or storm (principal); R79.89 Other specified abnormal findings of blood chemistry
CPT/HCPCS: 36415; 82533; 83516; 84439; 84443; 84480; 86376; 86800

== ENCOUNTER 2024-02-21 14:29 | Emergency (ER) | payer MEDICARE, OTHER, SELFPAY ==
[2024-02-21] VITALS (7 sets, daily range): BP systolic 124–167; BP diastolic 73–84; PULSE 82–95; RESP 16–20; TEMP 36.8; O2SAT 92–98
--- NOTE | 2024-02-21 14:34 | CTR_ITS ---
PROCEDURE INFORMATION: Exam: CT Thoracic Spine Without Contrast Exam date and time: 02/21/2024 2:51 PM Age: 83 years old Clinical indication: Injury or trauma; Fall; Blunt trauma (contusions or hematomas) TECHNIQUE: Imaging protocol: Computed tomography of the thoracic spine without contrast. Radiation optimization: All CT scans at this facility use at least one of these dose optimization techniques: automated exposure control; mA and/or kV adjustment per patient size (includes targeted exams where dose is matched to clinical indication); or iterative reconstruction. COMPARISON: CT cervical spin wo con* [id number] 02/21/2024 2:47 PM RADIATION DOSE METRICS: Total DLP (mGy-cm): 558.31 FINDINGS: Bones/joints: Demineralization of the visualized bones. No spondylolisthesis. Chronic compression deformities of the T12 and L1 vertebral bodies with moderate retropulsion causing mild bony canal stenosis. Partially included compression fracture of the L2 vertebral body. Multilevel anterior osteophytes of the thoracic spine. Soft tissues: Unremarkable. Vasculature: Vascular calcifications. Lungs: Bilateral apical fibrotic changes. Bilateral lower lobe atelectasis. Thyroid: Right thyroid nodules measuring up to 2.1 cm with peripheral calcifications. Liver: Multiple hypodense liver lesions measuring to 6.8 x 4.9 cm in the right hepatic lobe. Gallbladder and biliary ducts: Post cholecystectomy. Kidneys and ureters: Mm nonobstructing stone in the lower pole of the right kidney. Spleen: Calcified splenic granulomas. CT/CT thoracic spin wo con* [id number] IMPRESSION: 1. No acute fracture in the thoracic spine. 2. Partially included compression fracture of the L2 vertebral body.
--- NOTE | 2024-02-21 14:34 | CTR_ITS ---
PROCEDURE INFORMATION: Exam: CT Cervical Spine Without Contrast Exam date and time: 02/21/2024 2:47 PM Age: 83 years old Clinical indication: Injury or trauma; Fall; Blunt trauma TECHNIQUE: Imaging protocol: Computed tomography of the cervical spine without contrast. Radiation optimization: All CT scans at this facility use at least one of these dose optimization techniques: automated exposure control; mA and/or kV adjustment per patient size (includes targeted exams where dose is matched to clinical indication); or iterative reconstruction. COMPARISON: CT head wo con* [id number] 02/21/2024 2:47 PM RADIATION DOSE METRICS: Total DLP (mGy-cm): 957.9 FINDINGS: Bones: Demineralization of the visualized bones. No acute fracture. No compression deformity. No spondylolisthesis. There is fusion of the left facet joints at C3-C4 level. CPPD changes around the dens. Posterior osteophyte disc complexes at C5-C6 and C6-C7 with mild bony canal stenosis. Lungs: Bilateral apical fibrotic changes. Thyroid: Hypodense right thyroid nodules measuring up to 2.2 cm with peripheral calcifications. Vasculature: Bilateral carotid calcifications. Soft tissues: Nuchal ligament calcifications. CT/CT cervical spin wo con* [id number] IMPRESSION: No acute posttraumatic changes in the cervical spine. COMMENTS: Consistent with the [employer]'s Incidental Findings Committee white paper (J Am Nicanor Radiol 2015): In patients aged 35 years and older with an incidental thyroid nodule equal to or greater than 1.[address], MRI or extrathyroidal US, further evaluation with dedicated thyroid US is recommended for patients with normal life expectancy and without comorbidities. For smaller nodules without suspicious features, no further evaluation or follow up is recommended.
--- NOTE | 2024-02-21 14:34 | XRR_ITS ---
PROCEDURE INFORMATION: Exam: XR Chest Exam date and time: 02/21/2024 2:50 PM Age: 83 years old Clinical indication: Injury or trauma; Fall; Blunt trauma (contusions or hematomas); Additional info: Weakness TECHNIQUE: Imaging protocol: Radiologic exam of the chest. Views: 1 view. COMPARISON: CR XR chest 2V* [id number] 07/22/2023 3:13 PM FINDINGS: Lungs: Bibasilar atelectasis. No gross consolidations. Pleural spaces: Unremarkable. No pleural effusion. No pneumothorax. Heart/Mediastinum: Unremarkable. No cardiomegaly. Bones/joints: Low-grade chondroid lesion in the right proximal humeral metaphysis. Moderate degenerative disease of the left glenohumeral and left acromioclavicular joint. Organs: Post cholecystectomy. XR/XR chest 1V portable [id number] IMPRESSION: No acute cardiopulmonary process.
--- NOTE | 2024-02-21 14:34 | CTR_ITS ---
PROCEDURE INFORMATION: Exam: CT Head Without Contrast Exam date and time: 02/21/2024 2:47 PM Age: 83 years old Clinical indication: Injury or trauma; Fall; Blunt trauma (contusions or hematomas); Additional info: Weakness TECHNIQUE: Imaging protocol: Computed tomography of the head without contrast. Radiation optimization: All CT scans at this facility use at least one of these dose optimization techniques: automated exposure control; mA and/or kV adjustment per patient size (includes targeted exams where dose is matched to clinical indication); or iterative reconstruction. COMPARISON: CT cervical spin wo con* [id number] 02/21/2024 2:47 PM RADIATION DOSE METRICS: Total DLP (mGy-cm): 1128.4 FINDINGS: Brain: Bilateral periventricular white matter hypodensities consistent with chronic ischemic small vessel disease. There is a 4 mm right parietal extra-axial hematoma. Mineralization of the right basal ganglia, age-related. No large territorial infarct. Cerebral ventricles: No ventriculomegaly. Paranasal sinuses: Visualized sinuses are unremarkable. No fluid levels. Mastoid air cells: Visualized mastoid air cells are well aerated. Orbital cavities: Post bilateral cataract surgery. Bones: Unremarkable. No acute fracture. Soft tissues: Left posterior parietal subgaleal hematoma. Vasculature: Vascular calcifications. No mass effect. CT/CT head wo con* [id number] IMPRESSION: 4 mm right parietal subdural hematoma with no mass effect or midline shift.
--- NOTE | 2024-02-21 14:35 | ECG_ITS ---
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 Measurements Intervals [place] Rate: 89 P: 61 WI: 195 QRS: -46 QRSD: 152 T: 87 QT: 377 QTc: 460 Interpretive Statements SINUS RHYTHM LEFT AXIS DEVIATION [QRS AXIS < -30] LEFT BUNDLE BRANCH BLOCK [120+ ms QRS DURATION, 80+ ms Q/S IN V1/V2, 85+ ms R IN I/aVL/V5/V6] No previous ECG available for comparison Electronically Signed On 02-21-2024 15:41:49 CDT by Fortino Espinoza M.D. [id number]
--- NOTE | 2024-02-21 14:36 | ED_ITS ---
HPI - Fall 2 General: Chief Complaint: Weakness Stated Complaint: head lac s/p fall Time Seen by Provider: 02/21/24 14:32 Source: patient and EMS Mode of arrival: EMS Limitations: no limitations History of Present Illness: 84-year-old female who is here from [facility] patient had a fall today and hit posterior head on a coffee table has a small laceration to the posterior scalp. She also complains of some neck and back pain as well. She denies any loss consciousness patient's had some slight weakness has been chronic had another fall they state over the last week Associated symptoms-after fall: Reports headache(s) and neck pain; Denies abdominal pain or chest pain Related Data Home Medications Medication Instructions Recorded Confirmed diclofenac sodium 1 % topical gel 2 g topical QID 11/30/23 01/19/24 (Voltaren Arthritis Pain) Previous Rx's Medication Instructions Recorded escitalopram oxalate 20 mg tablet 20 mg PO DAILY #60 tabs 12/02/23 omeprazole 20 mg capsule,delayed 20 mg PO DAILY #90 caps 12/02/23 release tolterodine 4 mg capsule,extended 4 mg PO DAILY #60 caps 12/02/23 release 24 hr methimazole 5 mg tablet 2.5 mg (1/2 x 5 mg) PO DAILY #45 01/15/24 tabs prednisone 5 mg tablet 5 mg PO DAILY #90 tabs 01/19/24 Allergies Allergy/AdvReac Type Severity Reaction Status Date / Time sulfamethoxazole Allergy Unknown ALGY-Rash Verified 01/19/24 13:00 [From Bactrim] trimethoprim [From Bactrim] Allergy Unknown ALGY-Rash Verified 01/19/24 13:00 Review of Systems 2 Const: Denies: fever(s), chills, body aches or change in appetite Eyes: Denies: blurry vision or eye discomfort ENMT: Denies: throat pain or dental pain Card: Denies: chest pain Resp: Denies: dyspnea GI: Denies: abdominal pain, nausea, vomiting or diarrhea Musc: Reports: neck pain and back pain Skin/Breast: Denies: rash Neuro: Reports: headache(s) PFSH ED 2 PFSH: Medical History Mixed incontinence Chronic lumbar pain Moderate major depression High risk medication use Inflammatory myopathy Positive GAUTAM (antinuclear antibody) Generalized muscle weakness DDD (degenerative disc disease) Surgical History History of hip replacement History of knee replacement Family History Other Rheumatoid arthritis Social History Smoking and tobacco/nicotine status: never used tobacco/nicotine Alcohol intake: current Alcohol intake frequency: holidays/special occasions only Physical Exam 2 Const: COMMON NORMALS: no acute distress, patient oriented x3 and healthy appearing HENMT: COMMON NORMALS: normocephalic HEAD & SCALP: normocephalic OTHER: 1 cm laceration to posterior scalp with hematoma Eye: COMMON NORMALS: Equal, round and reactive pupils present and EOMs intact bilaterally PUPIL: Yes Equal, round and reactive pupils present Neck/C-Spine: COMMON NORMALS: full ROM and supple Chest: COMMONS NORMALS: normal inspection of the chest and normal palpation of entire chest wall Resp: COMMON NORMALS: normal respiratory effort, No retractions, No use of accessory muscles and clear to auscultation bilaterally AUSCULTATION: clear to auscultation bilaterally Cardio: COMMON NORMALS: regular rate, regular rhythm and No murmurs present (Cardio) RATE: regular rate RHYTHM: regular rhythm GI: COMMON NORMALS: Normal to inspection, nondistended, normoactive bowel sounds present, Soft to palpation, non-tender and no masses PALPATION: Yes Soft to palpation Extremity: COMMON NORMALS: normal to inspection and full ROM Neuro: COMMON NORMALS: patient oriented x3, moves all extremities and no focal motor deficits Psych: COMMON NORMALS: mental status grossly normal, Normal thought process present and cooperative THOUGHT PROCESS: Normal thought process present Skin: COMMON NORMALS: no rashes or lesions noted and no wounds GENERAL SKIN EXAM: no rashes or lesions noted Procedures Laceration Laceration 1: Site: scalp Size (cm): 1 Description: linear Local Anesthetic: lidocaine 1% Amount of anesthesia used (mL): 4 Pre-repair: wound explored and irrigated extensively Skin layer closed with: other (staple) Number of sutures: 1 Course 2 Vital Signs: Vital signs: Vital Signs Temperature 98.2 F 02/21/24 14:36 Pulse Rate 95 02/21/24 14:36 Respiratory Rate 16 02/21/24 14:36 Blood Pressure 124/73 02/21/24 15:15 Pulse Oximetry 96 02/21/24 15:15 Oxygen Delivery Me thod Room Air 02/21/24 14:36 MDM - Fall Medical Decision Making Patient presents here with subdural hematoma from a fall. She also had laceration repaired with pradeep. I did speak to [facility] will transfer their ER to ER for neurosurgery capabilities Medical Records I reviewed the patient's medical records. Lab Data I reviewed the patient's lab results. 02/21/24 14:42 02/21/24 14:42 Radiology Impressions Cervical Spine CT 02/21/24 14:34 IMPRESSION: No acute posttraumatic changes in the cervical spine. COMMENTS: Consistent with the [employer]'s Incidental Findings Committee white paper (J Am Nicanor Radiol 2015): In patients aged 35 years and older with an incidental thyroid nodule equal to or greater than 1.[address], MRI or extrathyroidal US, further evaluation with dedicated thyroid US is recommended for patients with normal life expectancy and without comorbidities. For smaller nodules without suspicious features, no further evaluation or follow up is recommended. Chest X-Ray 02/21/24 14:34 IMPRESSION: No acute cardiopulmonary process. Head CT 02/21/24 14:34 IMPRESSION: 4 mm right parietal subdural hematoma with no mass effect or midline shift. ADDENDUM: 02/21/24 1515 THIS REPORT CONTAINS FINDINGS THAT MAY BE CRITICAL TO PATIENT CARE. The findings were verbally communicated via telephone conference with YUNIOR PIZANO at 3:13 PM CDT on 02/21/2024. The findings were acknowledged and understood. Thoracic Spine CT 02/21/24 14:34 IMPRESSION: 1. No acute fracture in the thoracic spine. 2. Partially included compression fracture of the L2 vertebral body. Laboratory Results WBC 6.79 10^3/uL (3.29-11.43) 02/21/24 14:42 RBC 4.20 10^6/uL (3.85-5.65) 02/21/24 14:42 Hgb 13.30 g/dL (11.27-16.99) 02/21/24 14:42 Hct 42.2 % (36-47) 02/21/24 14:42 MCV 100.5 fl (85-98) H 02/21/24 14:42 MCH 31.7 pg (27-33) 02/21/24 14:42 MCHC 31.5 g/dL (30-55) 02/21/24 14:42 RDW 13.3 % (12.1-15.1) 02/21/24 14:42 Plt Count 199 10^3/cmm (157-399) 02/21/24 14:42 MPV 9.6 fL (7.4-10.4) 02/21/24 14:42 Neut % (Auto) 85.2 % 02/21/24 14:42 Lymph % (Auto) 6.8 % 02/21/24 14:42 [place] % (Auto) 5.4 % 02/21/24 14:42 Eos % (Auto) 1.3 % 02/21/24 14:42 Baso % (Auto) 0.7 % 02/21/24 14:42 Neut # (Auto) 5.78 10^3/uL (1.8-7.7) 02/21/24 14:42 Lymph # (Auto) 0.5 10^3/uL (0.8-4.8) L 02/21/24 14:42 [place] # (Auto) 0.4 10^3/uL (0.2-0.9) 02/21/24 14:42 Eos # (Auto) 0.1 10^3/uL (0.0-0.8) 02/21/24 14:42 Baso # (Auto) 0.1 10^3/uL (0.0-0.1) 02/21/24 14:42 Nucleated RBC % (auto) 0 % 02/21/24 14:42 Nucleated RBCs # 0.0 /100WBC 02/21/24 14:42 PT 14.10 SECONDS (12.1-14.9) 02/21/24 14:42 INR 1.05 (0.8-1.2) 02/21/24 14:42 Sodium 141 mmol/L (136-145) 02/21/24 14:42 Potassium 4.0 mmol/L (3.5-5.1) 02/21/24 14:42 Chloride 100 mmol/L (98-107) 02/21/24 14:42 Carbon Dioxide 30 mmol/L (22-29) H 02/21/24 14:42 Anion Gap 15.0 (5-19) 02/21/24 14:42 BUN 22 mg/dL (8-23) 02/21/24 14:42 Creatinine 0.7 mg/dL (0.5-0.9) 02/21/24 14:42 GFR Calculation Not Reportable 02/21/24 14:42 Glucose 118 mg/dL (65-115) H 02/21/24 14:42 POC Glucose 101 mg/dL (70-110) 02/21/24 15:09 Calculated Osmolality 296 mOsm/kg (285-295) H 02/21/24 14:42 Calcium 9.5 mg/dL (8.5-10.5) 02/21/24 14:42 Total Bilirubin 0.5 mg/dL (0.15-1.2) 02/21/24 14:42 AST 25 U/L (0-32) 02/21/24 14:42 ALT 17 U/L (0-33) 02/21/24 14:42 Alkaline Phosphatase 161 U/L (35-105) H 02/21/24 14:42 Total Protein 7.2 g/dL (6.6-8.7) 02/21/24 14:42 Albumin 4.2 g/dL (3.5-5.2) 02/21/24 14:42 Globulin 3.0 g/dL (1.3-4.6) 02/21/24 14:42 All radiology interpretation(s) finalized by discharge EKG Data EKG 1: I personally reviewed and interpreted this EKG as follows: EKG interpretation date: 02/21/24 EKG interpretation time: 14:35 Interpretation: nsr hr [address] or t wave abnormalities qrs 152 qtc 424 Critical Care Time 2 Critical Care Time: Critical Care Time: Yes Total Critical Care Time: 35 Attestation: The high probability of a clinically significant, sudden or life threatening deterioration of the patient's trauma system(s) required my full and direct attention, intervention and personal management. The critical care time is as shown. This time is in addition to time spent performing any reported procedures but includes the following: [x] Data and vital sign review and interpretation [x] Patient assessment, examination and intervention [x] Documentation [x] Medication orders and management Discharge Plan Discharge Patient Disposition: Xfer Short-Term Hosp Clinical Impression: Acute subdural hematoma, Laceration of head Condition: Stable Prescriptions: No Action tolterodine 4 mg capsule,extended release 24hr 4 mg PO DAILY Qty: 60 1RF escitalopram oxalate 20 mg tablet 20 mg PO DAILY Qty: 60 1RF omeprazole 20 mg capsule,delayed release(DR/EC) 20 mg PO DAILY Qty: 90 1RF diclofenac sodium [Voltaren Arthritis Pain] 1 % gel 2 g topical QID Rx Instructions: apply to single elbow, wrist or hand; for hand includes palm/fingers/back of hand prednisone 5 mg tablet 5 mg PO DAILY Qty: 90 1RF methimazole 5 mg tablet 2.5 mg PO DAILY Qty: 45 0RF Referrals: Jean Simpson MD [Primary Care Provider] - Coding Level of Care Code ED [facility] for [facility] Booth
[2024-02-21 14:51] LABS: Basophils # 0.1 10^3/uL (0.0-0.1); Basophils % 0.7 %; Eosinophils # 0.1 10^3/uL (0.0-0.8); Eosinophils % 1.3 %; Hematocrit 42.2 % (36-47); Lymphocytes # 0.5 10^3/uL (0.8-4.8); Lymphocytes % 6.8 %; Mean Corpuscular HGB Conc 31.5 g/dL (30-55); Mean Corpuscular Hemoglobin 31.7 pg (27-33); Mean Corpuscular Volume 100.5 fl (85-98); Mean Platelet Volume 9.6 fL (7.4-10.4); Monocytes # 0.4 10^3/uL (0.2-0.9); Monocytes % 5.4 %; Neutrophils # 5.78 10^3/uL (1.8-7.7); Neutrophils % 85.2 %; Nucleated Red Blood Cells % 0 %; Platelet Count 199 10^3/cmm (157-399); Red Cell Distribution Width 13.3 % (12.1-15.1); White Blood Count 6.79 10^3/uL (3.29-11.43)
[2024-02-21 15:00] LABS: INR 1.05 (0.8-1.2)
[2024-02-21 15:05] LABS: Alanine Aminotransferase 17 U/L (0-33); Albumin Level 4.2 g/dL (3.5-5.2); Alkaline Phosphatase 161 U/L (35-105); Aspartate Amino Transferase 25 U/L (0-32); Blood Urea Nitrogen 22 mg/dL (8-23); Calcium 9.5 mg/dL (8.5-10.5); Carbon Dioxide 30 mmol/L (22-29); Chloride 100 mmol/L (98-107); Glucose 118 mg/dL (65-115); Osmolality Calculated 296 mOsm/kg (285-295); Sodium 141 mmol/L (136-145); Total Bilirubin 0.5 mg/dL (0.15-1.2); Total Protein 7.2 g/dL (6.6-8.7)
[2024-02-21 15:18] LABS: Glucose Point of Care 101 mg/dL (70-110)
--- NOTE | 2024-02-21 15:21 | PC.NURSE ---
provider stated that we did not need a urine sample
[2024-02-21 16:05] LABS: Charge for UA Resulting for Rev
[2024-02-21 16:08] LABS: Bilirubin Urine Negative (Negative); Blood Urine Negative (Negative); Glucose Urine UA Negative (Normal); Ketones Urine Negative (Negative); Leukocyte Esterase Urine 1+ (Negative); Nitrate Urine Positive (Negative); Protein Urine Trace (Negative); Specific Gravity, Urine 1.023 (1.005-1.030); Urine Appearance Cloudy (CLEAR); Urine Color Yellow (Yellow)
[2024-02-21 16:10] LABS: Bacteria Urine 4+ /hpf; Hyaline Casts Urine 6.17 /lpf; RBC Urine >100 /hpf (0-2)
[2024-02-21 16:30] LABS: Add Urine Culture? Yes
== END 2024-02-21 16:21 | disposition short-term general hospital (02) ==
PROVIDERS: Emergency Provider Emergency Medicine; PCP Family Medicine
DX: S06.5XAA Traumatic subdural hemorrhage with loss of consciousness status unknown, initial encounter (principal); S01.01XA Laceration without foreign body of scalp, initial encounter; W18.39XA Other fall on same level, initial encounter; Y92.099 Unspecified place in other non-institutional residence as the place of occurrence of the external cause
CPT/HCPCS: 12001; 36416; 70450; 71045; 72125; 72128; 80053; 81003; 81015; 82962; 85025; 85610; 87077; 87086; 87186; 93005; 99285

== ENCOUNTER 2024-04-20 09:20 | Outpatient (CLI) | payer MEDICARE, OTHER, SELFPAY ==
--- NOTE | 2024-04-20 09:26 | CT_ITS ---
WS: [id number] CT ABDOMEN AND PELVIS WITH CONTRAST HISTORY: ABDOMINAL MASS TECHNIQUE: Imaging performed of the abdomen and pelvis with IV contrast. Single phase imaging of the abdomen. Coronal and sagittal reformats are submitted. All CT scans at [facility] use at [address] one of these dose optimization techniques: automated exposure control; mA and/or kV adjustment per patient size (includes targeted exams where dose is matched to clinical indication); or iterative re construction. IV CONTRAST: Omnipaque 350; 100 mL IV. Oral contrast: Yes. DLP: 581.63 mGy.cm COMPARISON: None available. Lower thorax: Lung bases are elevated resulting in decreased lung volumes. Atelectasis at the lung ba ses. Heart is normal size. No hiatal hernia. Liver/biliary system: Normal size liver. Scattered hepatic cysts. The largest hepatic cyst in the pos terior RIGHT lobe of the liver measures 7.5 x 6.6 cm. Gallbladder: Prior cholecystectomy. Pancreas: Diffuse pancreatic atrophy. Spleen: Normal size spleen. No mass or infarct. Adrenal glands: Normal. Right kidney: Moderate atrophy. Normal enhancement of the kidney with no obstruction. Left kidney: Moderate atrophy. No obstruction. Aorta: Mild atherosclerosis with no aneurysm. SMA is poorly visualized. Very small caliber proximally . Component of mild stenosis is likely. Lymphadenopathy: None. Free fluid: None. GI tract: Stomach is moderately well distended and high riding due to elevated diaphragm. No small екатерина wel obstruction. No colitis. Moderate diffuse constipation. Bilateral inguinal hernias. Nondilated lo op of small bowel extends into the RIGHT inguinal canal. There is an additional loop of colon extendi ng into the LEFT inguinal canal. There is a moderate amount of feces within this herniated loop which is extending at least 7.5 cm below the inguinal canal. There is no fluid or ischemic changes identif ied. Numerous diverticula are present within this herniated loop. Distal colonic diverticulosis without acute diverticulitis. Abdominal wall: No umbilical hernia. Pelvis: No free fluid or adenopathy within the pelvis. Fibroid uterus. Bones: Osteoporosis. T12 and L1 prior vertebroplasty's. L2 biconcave fracture. Fractures were describ ed on a prior CT from 02/21/2024. Prior LEFT hip arthroplasty. CT/CT abdomen pelvis w con* [id number] IMPRESSION: 1. Bilateral inguinal hernias. 2. LEFT inguinal hernia contains a feces filled loop of sigmoid with diverticu la. There is no fluid or edema to suggest acute ischemia. Patient is at risk fo r developing ischemia. 3. Nondilated loops of small bowel into the RIGHT inguinal canal. 4. Hepatic cysts. 5. Prior cholecystectomy. 6. Mild bilateral renal atrophy. 7. Fibroid uterus. Notified Gab Aragon MD at 04/20/2024 2:06 PM.
[2024-04-20] MEDS: iohexol 350 mg/mL 500 mL Btl (per mL) PO (10:29)
[2024-04-20 11:11] LABS: Blood Urea Nitrogen 10 mg/dL (8-23)
[2024-04-20] MEDS: iohexol 350 mg/mL 500 mL Btl (per mL) IV (12:03)
== END 2024-04-20 09:21 | disposition home or self-care (01) ==
LOC: RAD 09:22
PROVIDERS: PCP Family Medicine; Visit Provider Family Medicine
DX: K40.30 Unilateral inguinal hernia, with obstruction, without gangrene, not specified as recurrent (principal); Q44.6 Cystic disease of liver; D25.9 Leiomyoma of uterus, unspecified; J98.11 Atelectasis; Z90.49 Acquired absence of other specified parts of digestive tract
CPT/HCPCS: 74177; 82565; 84520

== ENCOUNTER 2024-08-27 16:27 | Outpatient (CLI) | payer MEDICARE, OTHER, SELFPAY ==
[2024-08-27 16:49] LABS: Basophils % 0.9 %; Eosinophils # 0.1 10^3/uL (0.0-0.8); Hematocrit 39.3 % (36-47); Mean Corpuscular HGB Conc 31.3 g/dL (30-55); Mean Corpuscular Hemoglobin 30.7 pg (27-33); Mean Platelet Volume 9.9 fL (7.4-10.4); Monocytes # 0.4 10^3/uL (0.2-0.9); Monocytes % 8.9 %; Neutrophils # 3.05 10^3/uL (1.8-7.7); Nucleated Red Blood Cells % 0 %; Platelet Count 178 10^3/cmm (157-399); Red Blood Count 4.01 10^6/uL (3.85-5.65); Red Cell Distribution Width 14.3 % (12.1-15.1); White Blood Count 4.62 10^3/uL (3.29-11.43)
[2024-08-27 17:31] LABS: Alanine Aminotransferase 13 U/L (0-33); Albumin Level 4.1 g/dL (3.5-5.2); Alkaline Phosphatase 106 U/L (35-105); Anion Gap 11.1 (5-19); Aspartate Amino Transferase 23 U/L (0-32); Blood Urea Nitrogen 18 mg/dL (8-23); Calcium 9.4 mg/dL (8.5-10.5); Carbon Dioxide 34 mmol/L (22-29); Chloride 103 mmol/L (98-107); Chol HDL Ratio 3.08 mg/dL (0.0-4.40); Cholesterol 151 mg/dL (0-200); Globulin 2.5 g/dL (1.3-4.6); Glucose 100 mg/dL (65-115); HDL Cholesterol 49 mg/dL (60-100); LDL Cholesterol Calculated 77 mg/dL (50-129); LDL HDL Ratio 1.57 RATIO (0.00-3.22); Osmolality Calculated 300 mOsm/kg (285-295); Potassium 4.1 mmol/L (3.5-5.1); Sodium 144 mmol/L (136-145); Total Bilirubin 0.3 mg/dL (0.15-1.2); Total Protein 6.6 g/dL (6.6-8.7); Triglycerides 125 mg/dL (0-150)
[2024-08-27 19:34] LABS: Free T4 Free Thyroxine 1.22 ng/dL (0.82-1.77); T3 Free 2.5 PG/ML (2.0-4.4)
== END 2024-08-27 16:28 | disposition home or self-care (01) ==
PROVIDERS: PCP Family Medicine; Visit Provider Family Medicine
DX: I10 Essential (primary) hypertension (principal); R94.6 Abnormal results of thyroid function studies
CPT/HCPCS: 80053; 80061; 84439; 84443; 84481; 85025

== ENCOUNTER → 2024-10-25 10:43 | Outpatient (BNVA) | payer MEDICARE, OTHER, SELFPAY | PROVIDERS: PCP Family Medicine; Visit Provider Internal Medicine Rheumatology | DX: Z90.49 Acquired absence of other specified parts of digestive tract (principal); M62.81 Muscle weakness (generalized); R76.8 Other specified abnormal immunological findings in serum; G72.49 Other inflammatory and immune myopathies, not elsewhere classified; Z79.899 Other long term (current) drug therapy | CPT/HCPCS: 36415; 80076; 82085; 82550; 82565; 85025; 85651; 86140; 99214 ==

== ENCOUNTER 2025-03-06 09:32 | Inpatient (IN) | payer MEDICARE, OTHER, SELFPAY ==
--- OUTSIDE RECORDS SUMMARY | 2023-09-29 09:00 | XMS_ITS ---
Author Organization [facility] Address [address] [place] [address] Care Team Providers Care Diamond Assorter Name Role Phone CHRISTINE MARTE Unavailable [phone] ELIAN FLORES Unavailable [phone] REASON FOR VISIT Mixed Incontinence Encounters Encounter Location Date Provider Diagnosis [facility] [address] [place] [address] 09/29/2023 ELIAN FLORES Plan Of Treatment No Information Progress Notes * BERNY VestaKimberleyOB:1939 (85 yo F)Acc No.[id number]:09/29/2023 Progress Notes Patient: Shelly COOPER Provider: JASPAL Paulino :1940 A ge:83 Y S ex:Female Date:09/29/2023 Address:[address] [place], [place] [id number] Subjective: * Chief Complaints: * 1 . Mixed Incontinence. * Medical History: Objective: * Vitals: Assessment: Plan: * Treatment: * Billing Information: * Visit Code: * Procedure Codes: * Electronic signature of ELIAN FLORES APRN on 03/06/2025 at 09:56 AM CDT Sign off status: Pending * Provider: JASPAL Paulino Date: 0 09/29/2023 Generated for Luke viera/Lila/Gian on: 0 03/06/2025 09:56 AM CDT
[2025-03-06] VITALS (15 sets, daily range): BP systolic 111–141; BP diastolic 64–89; PULSE 78–108; RESP 16–24; TEMP 36.5–37; O2SAT 90–97; BMI 22.8; BMI 23.7
--- NOTE | 2025-03-06 09:34 | ECG_ITS ---
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 Measurements Intervals [place] Rate: 106 P: 64 KS: 177 QRS: -50 QRSD: 142 T: 91 QT: 344 QTc: 457 Interpretive Statements SINUS TACHYCARDIA LEFT AXIS DEVIATION [QRS AXIS < -30] LEFT BUNDLE BRANCH BLOCK [120+ ms QRS DURATION, 80+ ms Q/S IN V1/V2, 85+ ms R IN I/aVL/V5/V6] Compared to ECG 02/21/2024 14:35:36 Sinus rhythm no longer present Electronically Signed On 03-07-2025 08:01:35 CDT by David Petty M.D. [email or web address]
--- NOTE | 2025-03-06 09:38 | XR_ITS ---
WS: [id number] XR chest 1V portable [id number] REASON FOR EXAM: wheezing, resp distress FINDINGS: The chest is relatively unchanged compared to 02/21/2024. Minimal atelectasis in the left lower lung due to underlying moderate gaseous distention of the fundus of the stomach. No acute pulmonary parenchymal or pleural abnormality. XR/XR chest 1V portable [id number] IMPRESSION: No acute chest abnormality.
--- NOTE | 2025-03-06 09:43 | W.ED.SOB ---
Documented by User: ANAI Bee 03/07/25 13:24 HPI - SOB/Dyspnea General: Chief Complaint: Shortness of Breath/Dyspnea Stated Complaint: difficulty breathing Source: patient Mode of arrival: ambulatory Limitations: no limitations History of Present Illness: HPI Narrative: Patient is an 85-year-old female with past medical history of pneumonia and congestive heart failure who was brought into the emergency department by EMS from group home due to shortness of breath for the past few days. Patient arrives in active respiratory distress and audible wheezing, notes that this is similar to previous incidences of pneumonia. Also is noting some peripheral edema. Does not report any sick contact exposure, she is alert and oriented and at baseline mentation. She states that she has felt increasingly weak, diminished appetite. Productive cough is noted. She is not having any chest pain however. She does arrive on 4 L of oxygen, does not normally wear oxygen. EMS stated that they found her to be 88% SpO2 on room air on their arrival. No breathing treatments or other measures prehospital other than IV placement, EKG being obtained at this time. Currently oxygenating well on 4 L of nasal cannula. MD elicited complaint: shortness of breath and cough Pertinent past history: congestive heart failure and pneumonia Onset (ago): day(s) Timing: progressively worsening Severity: similar to previous episodes Known history of: congestive heart failure and recurrent pneumonia Associated symptoms: Deny abdominal pain, chest pain, fever(s), lightheadedness, nausea, palpitations or vomiting Treatment prior to arrival: oxygen Related Data Home Medications ?Medication ?Instructions ?Recorded ?Confirmed escitalopram oxalate 10 mg tablet 10 mg PO QAM 03/06/25 03/06/25 fluticasone propionate 50 2 spray intranasal DAILY PRN 03/06/25 03/06/25 mcg/actuation nasal allergies spray,suspension (Flonase Allergy Relief) omeprazole 20 mg capsule,delayed 20 mg PO QAM 03/06/25 03/06/25 release omeprazole 40 mg capsule,delayed 40 mg PO QPM 03/06/25 03/06/25 release tolterodine 4 mg capsule,extended 4 mg PO QPM 03/06/25 03/06/25 release 24 hr Previous Rx's ?Medication ?Instructions ?Recorded prednisone 5 mg tablet 5 mg PO DAILY #90 tabs 10/25/24 furosemide 20 mg tablet (Lasix) 10 mg (1/2 x 20 mg) PO QAM #60 tabs 12/12/24 Allergies Allergy/AdvReac Type Severity Reaction Status Date / Time sulfamethoxazole (From Allergy Unknown ALGY-Rash Verified 12/26/24 13:24 Bactrim) trimethoprim (From Bactrim) Allergy Unknown ALGY-Rash Verified 12/26/24 13:24 Review of Systems General: Reports: 10 or more systems reviewed and unremarkable except in HPI and below Const: Reports: change in appetite, fatigue and malaise; Denies: fever(s) or chills Eyes: Denies: change in vision ENMT: Denies: throat pain, ear or mastoid pain or nasal discharge Card: Denies: chest pain, palpitations, swelling of feet/ankles or lightheadedness Resp: Reports: dyspnea, productive cough and wheezing GI: Denies: abdominal pain, nausea, vomiting, diarrhea or constipation : Denies: flank pain, difficulty voiding, dysuria or urinary frequency Musc: Denies: neck pain, back pain or joint pain Skin/Breast: Denies: rash Neuro: Denies: headache(s) PFSH ED PFSH: Medical History Mixed incontinence Chronic lumbar pain Moderate major depression High risk medication use Inflammatory myopathy Positive GAUTAM (antinuclear antibody) Generalized muscle weakness DDD (degenerative disc disease) Surgical History History of hip replacement History of knee replacement Family History Other Rheumatoid arthritis Social History Smoking and tobacco/nicotine status: never used tobacco/nicotine Alcohol intake: current Alcohol intake frequency: holidays/special occasions only Physical Exam Const: COMMON NORMALS: average body habitus, patient oriented x3 and alert ORIENTATION/CONSCIOUSNESS: Yes awake OTHER: Respiratory distress noted HENMT: COMMON NORMALS: normocephalic, atraumatic and moist oral mucous membranes HEAD & SCALP: normocephalic and atraumatic Eye: COMMON NORMALS: Equal, round and reactive pupils present and EOMs intact bilaterally PUPIL: Yes Equal, round and reactive pupils present Neck/C-Spine: COMMON NORMALS: full ROM and no JVD Chest: COMMONS NORMALS: normal inspection of the chest Resp: EFFORT & INSPECTION: Yes tachypneic, Yes respiratory distress, Yes labored, Yes uses accessory muscles and Yes audible wheezes AUSCULTATION: wheezes expiratory wheezes, inspiratory wheezes and throughout OTHER: Moderate to severe respiratory distress Cardio: COMMON NORMALS: no JVD and regular rhythm RATE: tachycardic RHYTHM: regular rhythm GI: COMMON NORMALS: Normal to inspection, nondistended, normoactive bowel sounds present, Soft to palpation and non-tender PALPATION: Yes Soft to palpation Extremity: COMMON NORMALS: full ROM NARRATIVE EXTREMITY EXAM: 1+ pedal edema bilaterally, slightly decreased capillary refill Neuro: COMMON NORMALS: patient oriented x3, moves all extremities, no focal motor deficits and no sensory deficits noted SENSORIUM/ORIENTATION: Yes alert Psych: COMMON NORMALS: mental status grossly normal Skin: COMMON NORMALS: no rashes or lesions noted GENERAL SKIN EXAM: no rashes or lesions noted Course Vital Signs: Vital signs: Vital Signs Temperature 97.9 F 03/07/25 11:21 Pulse Rate 91 03/07/25 11:21 Respiratory Rate 20 H 03/07/25 11:21 Blood Pressure 133/80 03/07/25 11:21 Pulse Oximetry 90 03/07/25 11:21 Oxygen Delivery Me thod Nasal Cannula 03/07/25 11:21 Oxygen Flow Rate 4 03/07/25 11:21 MDM - SOB/Dyspnea Medical Decision Making Patient presented by ambulance from group home for hypoxia and respiratory distress, she arrives tachypneic, wheezing, and using accessory muscles and clinical respiratory distress. She is given DuoNeb therapy, and placed on oxygen on arrival, 4 L to maintain SpO2 over 90%. She has a history of pneumonia and congestive heart failure. Clinically does not seem fluid overloaded, her BNP was unremarkable, delta troponin normal, CBC and CMP unremarkable, ABG showing compensating mild respiratory acidosis, and COVID/viral swab was negative. Chest x-rays not show any focal consolidation, chest CT ordered to rule out pulmonary embolism and no significant concerning findings other than possible inadequate evaluation of the left lower lung due to stomach distention, which could be hiding an acute pneumonia. She is started on azithromycin, and spoke to Dr. Armando, hospitalist, agreed to accept the patient into the hospital and recommending further steroid treatment with budesonide and methylprednisolone. Dr. Lewis informed of this patient and putting in admit orders. Lab Data 03/07/25 06:04 03/07/25 06:04 Labs/Radiology: Radiology Impressions Chest X-Ray 03/06/25 09:38 IMPRESSION: No acute chest abnormality. Chest CT 03/06/25 11:12 IMPRESSION: 1. Marked decreased lung volumes. In part this is probably due to marked air distention of the stomach limiting expansion of the LEFT lung. 2. Compressive atelectasis at the lung bases from poor inspiratory effort. 3. No pulmonary embolism identified. 4. No pneumonia. 5. Hepatic cysts. Laboratory Results WBC 11.05 10^3/uL (3.29-11.43) 03/06/25 09:20 RBC 4.35 10^6/uL (3.85-5.65) 03/06/25 09:20 Hgb 14.00 g/dL (11.27-16.99) 03/06/25 09:20 Hct 44.5 % (36-47) 03/06/25 09:20 MCV 102.3 fl (85-98) H 03/06/25 09:20 MCH 32.2 pg (27-33) 03/06/25 09:20 MCHC 31.5 g/dL (30-55) 03/06/25 09:20 RDW 13.6 % (12.1-15.1) 03/06/25 09:20 Plt Count 172 10^3/cmm (157-399) 03/06/25 09:20 MPV 10.4 fL (7.4-10.4) 03/06/25 09:20 Neut % (Auto) 87.7 % 03/06/25 09:20 Lymph % (Auto) 3.2 % 03/06/25 09:20 [place] % (Auto) 6.8 % 03/06/25 09:20 Eos % (Auto) 1.5 % 03/06/25 09:20 Baso % (Auto) 0.5 % 03/06/25 09:20 Neut # (Auto) 9.70 10^3/uL (1.8-7.7) H 03/06/25 09:20 Lymph # (Auto) 0.4 10^3/uL (0.8-4.8) L 03/06/25 09:20 [place] # (Auto) 0.8 10^3/uL (0.2-0.9) 03/06/25 09:20 Eos # (Auto) 0.2 10^3/uL (0.0-0.8) 03/06/25 09:20 Baso # (Auto) 0.1 10^3/uL (0.0-0.1) 03/06/25 09:20 Nucleated RBC % (auto) 0 % 03/06/25 09:20 Nucleated RBCs # 0.0 /100WBC 03/06/25 09:20 Specimen Type Arterial 03/06/25 09:44 Sample Site Radial, right 03/06/25 09:44 ABG pH 7.40 (7.35-7.45) 03/06/25 09:44 ABG pCO2 49.6 mmHg (35-45) H 03/06/25 09:44 ABG pO2 70.2 mmHg (80.0-100.0) L 03/06/25 09:44 ABG HCO3 30.8 mmol/L (22-26) H 03/06/25 09:44 ABG O2 Saturation 94.2 03/06/25 09:44 ABG Base Excess 5.0 mmol/L (-2.0-2.0) H 03/06/25 09:44 Cordell Test Pos 03/06/25 09:44 A-a O2 Gradient 2.5 mmHg (5-10) L 03/06/25 09:44 Hematocrit 41.4 % (37-47) 03/06/25 09:44 Hgb O2 Saturation 91.8 % (95-100) L 03/06/25 09:44 Carboxyhemoglobin 1.5 %THgb (0.4-20.1) 03/06/25 09:44 Methemoglobin 1.0 % (0.4-1.5) 03/06/25 09:44 Total Hemoglobin 13.5 g/dL (12-16) 03/06/25 09:44 Sodium 143.0 mmol/L (131-143) 03/06/25 09:44 Potassium 4.0 mmol/L (3.5-5.0) 03/06/25 09:44 Glucose 132.0 mg/dL (70-115) H 03/06/25 09:44 Ionized Calcium 1.2 mmol/L (1.1-1.4) 03/06/25 09:44 O2 Delivery Device Nc 03/06/25 09:44 O2 Liters/Min 4.0 % 03/06/25 09:44 Hospital Librarian ID [email or web address] 03/06/25 09:44 Sodium 143 mmol/L (136-145) 03/06/25 10:14 Potassium 4.1 mmol/L (3.5-5.1) 03/06/25 10:14 Chloride 102 mmol/L (98-107) 03/06/25 10:14 Carbon Dioxide 30 mmol/L (22-29) H 03/06/25 10:14 Anion Gap 15.1 (5-19) 03/06/25 10:14 BUN 24 mg/dL (8-23) H 03/06/25 10:14 Creatinine 0.6 mg/dL (0.5-0.9) 03/06/25 10:14 GFR Calculation Not Reportable 03/06/25 10:14 Glucose 118 mg/dL (65-115) H 03/06/25 10:14 Calculated Osmolality 301 mOsm/kg (285-295) H 03/06/25 10:14 Lactic Acid 1.2 mmol/L (0.5-2.2) 03/06/25 10:14 Calcium 9.4 mg/dL (8.5-10.5) 03/06/25 10:14 Total Bilirubin 0.4 mg/dL (0.15-1.2) 03/06/25 10:14 AST 24 U/L (0-32) 03/06/25 10:14 ALT 15 U/L (0-33) 03/06/25 10:14 Alkaline Phosphatase 110 U/L (35-105) H 03/06/25 10:14 Creatine Kinase 33 U/L (26-192) 03/06/25 10:14 Troponin T Baseline 17 ng/L (0-10) H 03/06/25 10:14 Troponin T 120 Minute 14.40 ng/L (0-10) H 03/06/25 11:45 Delta Troponin T -2.60 ABS# (0-10) L 03/06/25 11:45 NT-Pro-B Natriuret Pep 112 pg/mL (0-450) 03/06/25 10:14 Total Protein 7.1 g/dL (6.6-8.7) 03/06/25 10:14 Albumin 4.3 g/dL (3.5-5.2) 03/06/25 10:14 Globulin 2.8 g/dL (1.3-4.6) 03/06/25 10:14 Procalcitonin 0.04 ng/mL (0-0.5) 03/06/25 10:14 Influenza A (PCR) Negative (Negative) 03/06/25 10:10 Influenza Type B (PCR) Negative (Negative) 03/06/25 10:10 RSV (PCR) Negative (Negative) 03/06/25 10:10 SARS-CoV-2 (PCR) Negative (Negative) 03/06/25 10:10 All radiology interpretation(s) finalized by discharge Discharge Plan Discharge Patient Disposition: Admitted As Inpatient Admit Provider: Radha Armando Clinical Impression: Hypoxic respiratory failure Qualifiers: Chronicity: acute Qualified Code(s): J96.01 - Acute respiratory failure with hypoxia Condition: Stable Coding Level of Care Code ED Education Intern for [facility] Fwd Documented by User: Sergei Lewis DO 03/07/25 14:26 HPI - SOB/Dyspnea General: Chief Complaint: Shortness of Breath/Dyspnea Stated Complaint: difficulty breathing Related Data Home Medications ?Medication ?Instructions ?Recorded ?Confirmed escitalopram oxalate 10 mg tablet 10 mg PO QAM 03/06/25 03/06/25 fluticasone propionate 50 2 spray intranasal DAILY PRN 03/06/25 03/06/25 mcg/actuation nasal allergies spray,suspension (Flonase Allergy Relief) omeprazole 20 mg capsule,delayed 20 mg PO QAM 03/06/25 03/06/25 release omeprazole 40 mg capsule,delayed 40 mg PO QPM 03/06/25 03/06/25 release tolterodine 4 mg capsule,extended 4 mg PO QPM 03/06/25 03/06/25 release 24 hr Previous Rx's ?Medication ?Instructions ?Recorded prednisone 5 mg tablet 5 mg PO DAILY #90 tabs 10/25/24 furosemide 20 mg tablet (Lasix) 10 mg (1/2 x 20 mg) PO QAM #60 tabs 12/12/24 Allergies Allergy/AdvReac Type Severity Reaction Status Date / Time sulfamethoxazole (From Allergy Unknown ALGY-Rash Verified 12/26/24 13:24 Bactrim) trimethoprim (From Bactrim) Allergy Unknown ALGY-Rash Verified 12/26/24 13:24 PFS ED PFSH: Medical History Mixed incontinence Chronic lumbar pain Moderate major depression High risk medication use Inflammatory myopathy Positive GAUTAM (antinuclear antibody) Generalized muscle weakness DDD (degenerative disc disease) Surgical History History of hip replacement History of knee replacement Family History Other Rheumatoid arthritis Social History Smoking and tobacco/nicotine status: never used tobacco/nicotine Alcohol intake: current Alcohol intake frequency: holidays/special occasions only Course Vital Signs: Vital signs: Vital Signs Temperature 97.9 F 03/07/25 11:21 Pulse Rate 91 03/07/25 11:21 Respiratory Rate 20 H 03/07/25 11:21 Blood Pressure 133/80 03/07/25 11:21 Pulse Oximetry 90 03/07/25 11:21 Oxygen Delivery Me thod Nasal Cannula 03/07/25 11:21 Oxygen Flow Rate 4 03/07/25 11:21 MDM - SOB/Dyspnea Medical Decision Making Patient presented by ambulance from group home for hypoxia and respiratory distress, she arrives tachypneic, wheezing, and using accessory muscles and clinical respiratory distress. She is given DuoNeb therapy, and placed on oxygen on arrival, 4 L to maintain SpO2 over 90%. She has a history of pneumonia and congestive heart failure. Clinically does not seem fluid overloaded, her BNP was unremarkable, delta troponin normal, CBC and CMP unremarkable, ABG showing compensating mild respiratory acidosis, and COVID/viral swab was negative. Chest x-rays not show any focal consolidation, chest CT ordered to rule out pulmonary embolism and no significant concerning findings other than possible inadequate evaluation of the left lower lung due to stomach distention, which could be hiding an acute pneumonia. She is started on azithromycin, and spoke to Dr. Armando, hospitalist, agreed to accept the patient into the hospital and recommending further steroid treatment with budesonide and methylprednisolone. Dr. Lewis informed of this patient and putting in admit orders. Chart reviewed and patient discussed with midlevel. Agree with assessment and plan. Lab Data 03/07/25 06:04 03/07/25 06:04 Labs/Radiology: Radiology Impressions Chest X-Ray 03/06/25 09:38 IMPRESSION: No acute chest abnormality. Chest CT 03/06/25 11:12 IMPRESSION: 1. Marked decreased lung volumes. In part this is probably due to marked air distention of the stomach limiting expansion of the LEFT lung. 2. Compressive atelectasis at the lung bases from poor inspiratory effort. 3. No pulmonary embolism identified. 4. No pneumonia. 5. Hepatic cysts. Laboratory Results WBC 11.05 10^3/uL (3.29-11.43) 03/06/25 09:20 RBC 4.35 10^6/uL (3.85-5.65) 03/06/25 09:20 Hgb 14.00 g/dL (11.27-16.99) 03/06/25 09:20 Hct 44.5 % (36-47) 03/06/25 09:20 MCV 102.3 fl (85-98) H 03/06/25 09:20 MCH 32.2 pg (27-33) 03/06/25 09:20 MCHC 31.5 g/dL (30-55) 03/06/25 09:20 RDW 13.6 % (12.1-15.1) 03/06/25 09:20 Plt Count 172 10^3/cmm (157-399) 03/06/25 09:20 MPV 10.4 fL (7.4-10.4) 03/06/25 09:20 Neut % (Auto) 87.7 % 03/06/25 09:20 Lymph % (Auto) 3.2 % 03/06/25 09:20 [place] % (Auto) 6.8 % 03/06/25 09:20 Eos % (Auto) 1.5 % 03/06/25 09:20 Baso % (Auto) 0.5 % 03/06/25 09:20 Neut # (Auto) 9.70 10^3/uL (1.8-7.7) H 03/06/25 09:20 Lymph # (Auto) 0.4 10^3/uL (0.8-4.8) L 03/06/25 09:20 [place] # (Auto) 0.8 10^3/uL (0.2-0.9) 03/06/25 09:20 Eos # (Auto) 0.2 10^3/uL (0.0-0.8) 03/06/25 09:20 Baso # (Auto) 0.1 10^3/uL (0.0-0.1) 03/06/25 09:20 Nucleated RBC % (auto) 0 % 03/06/25 09:20 Nucleated RBCs # 0.0 /100WBC 03/06/25 09:20 Specimen Type Arterial 03/06/25 09:44 Sample Site Radial, right 03/06/25 09:44 ABG pH 7.40 (7.35-7.45) 03/06/25 09:44 ABG pCO2 49.6 mmHg (35-45) H 03/06/25 09:44 ABG pO2 70.2 mmHg (80.0-100.0) L 03/06/25 09:44 ABG HCO3 30.8 mmol/L (22-26) H 03/06/25 09:44 ABG O2 Saturation 94.2 03/06/25 09:44 ABG Base Excess 5.0 mmol/L (-2.0-2.0) H 03/06/25 09:44 Cordell Test Pos 03/06/25 09:44 A-a O2 Gradient 2.5 mmHg (5-10) L 03/06/25 09:44 Hematocrit 41.4 % (37-47) 03/06/25 09:44 Hgb O2 Saturation 91.8 % (95-100) L 03/06/25 09:44 Carboxyhemoglobin 1.5 %THgb (0.4-20.1) 03/06/25 09:44 Methemoglobin 1.0 % (0.4-1.5) 03/06/25 09:44 Total Hemoglobin 13.5 g/dL (12-16) 03/06/25 09:44 Sodium 143.0 mmol/L (131-143) 03/06/25 09:44 Potassium 4.0 mmol/L (3.5-5.0) 03/06/25 09:44 Glucose 132.0 mg/dL (70-115) H 03/06/25 09:44 Ionized Calcium 1.2 mmol/L (1.1-1.4) 03/06/25 09:44 O2 Delivery Device Nc 03/06/25 09:44 O2 Liters/Min 4.0 % 03/06/25 09:44 Hospital Librarian ID [email or web address] 03/06/25 09:44 Sodium 143 mmol/L (136-145) 03/06/25 10:14 Potassium 4.1 mmol/L (3.5-5.1) 03/06/25 10:14 Chloride 102 mmol/L (98-107) 03/06/25 10:14 Carbon Dioxide 30 mmol/L (22-29) H 03/06/25 10:14 Anion Gap 15.1 (5-19) 03/06/25 10:14 BUN 24 mg/dL (8-23) H 03/06/25 10:14 Creatinine 0.6 mg/dL (0.5-0.9) 03/06/25 10:14 GFR Calculation Not Reportable 03/06/25 10:14 Glucose 118 mg/dL (65-115) H 03/06/25 10:14 Calculated Osmolality 301 mOsm/kg (285-295) H 03/06/25 10:14 Lactic Acid 1.2 mmol/L (0.5-2.2) 03/06/25 10:14 Calcium 9.4 mg/dL (8.5-10.5) 03/06/25 10:14 Total Bilirubin 0.4 mg/dL (0.15-1.2) 03/06/25 10:14 AST 24 U/L (0-32) 03/06/25 10:14 ALT 15 U/L (0-33) 03/06/25 10:14 Alkaline Phosphatase 110 U/L (35-105) H 03/06/25 10:14 Creatine Kinase 33 U/L (26-192) 03/06/25 10:14 Troponin T Baseline 17 ng/L (0-10) H 03/06/25 10:14 Troponin T 120 Minute 14.40 ng/L (0-10) H 03/06/25 11:45 Delta Troponin T -2.60 ABS# (0-10) L 03/06/25 11:45 NT-Pro-B Natriuret Pep 112 pg/mL (0-450) 03/06/25 10:14 Total Protein 7.1 g/dL (6.6-8.7) 03/06/25 10:14 Albumin 4.3 g/dL (3.5-5.2) 03/06/25 10:14 Globulin 2.8 g/dL (1.3-4.6) 03/06/25 10:14 Procalcitonin 0.04 ng/mL (0-0.5) 03/06/25 10:14 Influenza A (PCR) Negative (Negative) 03/06/25 10:10 Influenza Type B (PCR) Negative (Negative) 03/06/25 10:10 RSV (PCR) Negative (Negative) 03/06/25 10:10 SARS-CoV-2 (PCR) Negative (Negative) 03/06/25 10:10 Discharge Plan Discharge Patient Disposition: Admitted As Inpatient Admit Provider: aRdha Armando Clinical Impression: Hypoxic respiratory failure Qualifiers: Chronicity: acute Qualified Code(s): J96.01 - Acute respiratory failure with hypoxia Condition: Stable Coding Level of Care Code ED Education Intern for [facility] Leobardo
[2025-03-06 09:55] LABS: ABG PCO2 49.6 mmHg (35-45); ABG PH Result 7.40 (7.35-7.45); Alveolar-Arterial Oxygen Gradi 2.5 mmHg (5-10); Arterial Blood Gas Hematocrit 41.4 % (37-47); Blood Gas Allen Test Pos; Blood Gas LPM 4.0 %; Blood Gas Operator Identificat WQLCI; Blood Gas Sample Site Radial, right; Blood Gas Sample Type Arterial; Carboxyhemoglobin 1.5 %THgb (0.4-20.1); Glucose Level-ABG 132.0 mg/dL (70-115); HCO3 ABG 30.8 mmol/L (22-26); Ionized Calcium Level - ABG 1.2 mmol/L (1.1-1.4); Methemoglobin 1.0 % (0.4-1.5); Oxygen Saturation ABG 94.2; PO2 ABG 70.2 mmHg (80.0-100.0); Potassium Level - ABG 4.0 mmol/L (3.5-5.0); Sodium Level - ABG 143.0 mmol/L (131-143)
--- OUTSIDE RECORDS SUMMARY | 2025-03-06 09:55 | XMS_ITS | Encounter Summary ---
Author Organization [facility] Address [address] [place] [address] Care Team Providers Care Tempering Oven Operator Name Role Phone Virginia Ware MD Primary Care Provider [phone] Encounter Details Date Type Department Care Team (Latest Contact Info) Description 05/26/2003 Outpatient Historical [facility] Medicine [place] [address] [facility] [address] [place] [phone] Carlos Weir MD [address] [phone] HYPERLIPIDEMIA NEC/NOS (Primary Dx); OSTEOARTHROS NOS-UNSPEC Social History Tobacco Use Types Packs/Day Years Used Date Smoking Tobacco: Never Assessed Comments Unknown Sex and Gender Information Value Date Recorded Sex Assigned at Not on file 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
--- OUTSIDE RECORDS SUMMARY | 2025-03-06 09:55 | XMS_ITS | Encounter Summary ---
Author Organization [facility] Address [address] [place] [address] Care Team Providers Care Multimedia Specialist Name Role Phone Virginia Ware MD Primary Care Provider [phone] Encounter Details Date Type Department Care Team (Latest Contact Info) Description 05/07/2001 Outpatient Historical [facility] Medicine [place] 104 [facility] [address] [place] [phone] Carlos Weir MD [address] [phone] ALLERGY, UNSPECIFIED (Primary Dx) Social History Tobacco Use Types Packs/Day Years Used Date Smoking Tobacco: Never Assessed Comments Unknown Sex and Gender Information Value Date Recorded Sex Assigned at Not on file 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
--- OUTSIDE RECORDS SUMMARY | 2025-03-06 09:55 | XMS_ITS | Encounter Summary ---
Author Organization [facility] Address [address] [place] [address] Care Team Providers Care Cosmetician Apprentice Name Role Phone Virginia Ware MD Primary Care Provider [phone] Encounter Details Date Type Department Care Team (Latest Contact Info) Description 09/29/2000 Outpatient Historical [facility] Medicine [place] [address] [facility] [address] [place] [phone] Carlos Weir MD [address] [phone] Reflux esophagitis (Primary Dx) Social History Tobacco Use Types Packs/Day Years Used Date Smoking Tobacco: Never Assessed Comments Unknown Sex and Gender Information Value Date Recorded Sex Assigned at Not on file 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
--- OUTSIDE RECORDS SUMMARY | 2025-03-06 09:55 | XMS_ITS | Encounter Summary ---
Author Organization [facility] Address [address] [place] [address] Care Team Providers Care Mri Specialist Name Role Phone Virginia Ware MD Primary Care Provider [phone] Encounter Details Date Type Department Care Team (Latest Contact Info) Description 03/15/2001 Outpatient Historical [facility] Medicine [place] [address] [facility] [address] [place] [phone] Carlos Weir MD [address] [phone] Acute bronchitis (Primary Dx) Social History Tobacco Use Types Packs/Day Years Used Date Smoking Tobacco: Never Assessed Comments Unknown Sex and Gender Information Value Date Recorded Sex Assigned at Not on file 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
--- OUTSIDE RECORDS SUMMARY | 2025-03-06 09:55 | XMS_ITS | Encounter Summary ---
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
--- OUTSIDE RECORDS SUMMARY | 2025-03-06 09:55 | XMS_ITS | Encounter Summary ---
Author Organization [facility] Address [address] [place] [address] Care Team Providers Care Patent Clerk Name Role Phone Vriginia Ware MD Primary Care Provider [phone] Encounter Details Date Type Department Care Team (Latest Contact Info) Description 06/30/2001 Outpatient Historical [facility] Medicine [address] [phone] Kirby Ramachandran, NO ADDRESS ON FILE ACUTE URI NOS (Primary Dx) Social History Tobacco Use Types Packs/Day Years Used Date Smoking Tobacco: Never Assessed Comments Unknown Sex and Gender Information Value Date Recorded Sex Assigned at Not on file Legal Sex Female 4:[address] Gender Identity Not on file Sexual Orientation Not on file documented as of this encounter Plan of Treatment Not on file documented as of this encounter Visit Diagnoses Diagnosis Acute upper respiratory infections of unspecified site- Primary documented in this encounter Care Teams Patent Clerk Relationship Specialty Start Date End Date Virginia Ware MD [address] [place] [address] PCP - General Internal Medicine 02/09/17 documented as of this encounter
--- OUTSIDE RECORDS SUMMARY | 2025-03-06 09:55 | XMS_ITS | Encounter Summary ---
Author Organization [facility] Address [address] [place] [address] Care Team Providers Care Environmental Services Director Name Role Phone Virginia Ware MD Primary Care Provider Encounter Details Date Type Department Care Team (Latest Contact Info) Description 10/20/2000 Outpatient Historical [facility] Medicine [address] [phone] Zaira Canchola MD Esophageal reflux (Primary Dx); Ulceration of intestine; Diarrhea Social History Tobacco Use Types Packs/Day Years Used Date Smoking Tobacco: Never Assessed Comments Unknown Sex and Gender Information Value Date Recorded Sex Assigned at Not on file 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
--- OUTSIDE RECORDS SUMMARY | 2025-03-06 09:55 | XMS_ITS | Encounter Summary ---
Author Organization [facility] Address [address] [place] [address] Care Team Providers Care Appraiser Auditor Name Role Phone Virginia Ware MD Primary Care Provider [phone] Encounter Details Date Type Department Care Team (Latest Contact Info) Description 10/15/2000 Outpatient Historical [facility] Medicine [address] [phone] Zaira Canchola MD Diarrhea (Primary Dx) Social History Tobacco Use Types Packs/Day Years Used Date Smoking Tobacco: Never Assessed Comments Unknown Sex and Gender Information Value Date Recorded Sex Assigned at Not on file 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
--- OUTSIDE RECORDS SUMMARY | 2025-03-06 09:55 | XMS_ITS | Encounter Summary ---
Author Organization [facility] Address [address] [place] [address] Care Team Providers Care Firestop/Containment Worker Name Role Phone Virginia Ware MD Primary Care Provider [phone] Encounter Details Date Type Department Care Team (Latest Contact Info) Description 01/05/2002 Outpatient Historical [facility] Medicine [address] [phone] Blanca Sabillon MD NO ADDRESS ON FILE CERVICALGIA (Primary Dx); JOINT PAIN-SHLDER; CLASS MIGRAIN W/O MENTN INTRACTABLE Social History Tobacco Use Types Packs/Day Years Used Date Smoking Tobacco: Never Assessed Comments Unknown Sex and Gender Information Value Date Recorded Sex Assigned at Not on file 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
--- OUTSIDE RECORDS SUMMARY | 2025-03-06 09:55 | XMS_ITS | Encounter Summary ---
Author Organization [facility] Address [address] [place] [address] Care Team Providers Care Coat Fitter Name Role Phone Virginia Ware MD Primary Care Provider [phone] Encounter Details Date Type Department Care Team (Latest Contact Info) Description 05/11/2001 Outpatient Historical [facility] Medicine- [address] [place] [phone] Kirby Ramachandran, NO ADDRESS ON FILE VACCINE FOR INFLUENZA (Primary Dx) Social History Tobacco Use Types Packs/Day Years Used Date Smoking Tobacco: Never Assessed Comments Unknown Sex and Gender Information Value Date Recorded Sex Assigned at Not on file 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
--- OUTSIDE RECORDS SUMMARY | 2025-03-06 09:55 | XMS_ITS | Patient Health Record ---
Author Organization [facility] [employer] Address [address] [place] [address] Care Team Providers Care Combat Systems Operator Name Role Phone CHRISTINE MARTE Unavailable [phone] Reason For Referral No Information Plan Of Treatment No Information Insurance Providers Payer Name Payer Address Payer Phone Subscriber Number Group Number Insured Name Patient Relationship to Insured Coverage Start Date Coverage End Date [place] [address] [facility] ANAI MONTALVO [id number] Shelly Cortes Self - patient is the insured [employer] Medicare Supplement [address] [address] [place], [place] [id number] Shelly Cortes Self - patient is the insured
--- OUTSIDE RECORDS SUMMARY | 2025-03-06 09:56 | XMS_ITS | Encounter Summary ---
Author Organization [facility] Address [address] [facility] [address] Care Team Providers Care Aircraft Ordnance Systems Mechanic Name Role Phone Virginia Ware MD Primary Care Provider [phone] Encounter Details Date Type Department Care Team ([facility] Contact Info) Description 06/11/2018 Chart Note [facility] (First floor of [facility]) [address] [place] [place] [phone] Angelique Foss, Physical Therapist Social History Tobacco Use Types Packs/Day Years Used Date Smoking Tobacco: Never Smokeless Tobacco: Never Alcohol Use Standard Drinks/Week Comments Yes 0.8 (1 standard drink = 0.6 oz p ure alcohol) q 2 months Comments No Sex and Gender Information Value Date Recorded Sex Assigned at Not on file 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
--- OUTSIDE RECORDS SUMMARY | 2025-03-06 09:56 | XMS_ITS | Encounter Summary ---
Author Organization [facility] Address [address] [place] [address] Care Team Providers Care Laboratory Apparatus Glass Blower Name Role Phone Virginia Ware MD Primary Care Provider [phone] Encounter Details Date Type Department Care Team (Latest Contact Info) Description 07/20/2000 Outpatient Historical [facility] Medicine [address] [phone] Kirby Ramachandran DO NO ADDRESS ON FILE Pneumonia due to Mycoplasma pneumoniae (Primary Dx) Social History Tobacco Use Types Packs/Day Years Used Date Smoking Tobacco: Never Assessed Comments Unknown Sex and Gender Information Value Date Recorded Sex Assigned at Not on file 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
--- OUTSIDE RECORDS SUMMARY | 2025-03-06 09:56 | XMS_ITS | Encounter Summary ---
Author Organization [facility] Address [address] [place] [address] Care Team Providers Care Director Of Partnerships Name Role Phone Virginia Ware MD Primary Care Provider [phone] Encounter Details Date Type Department Care Team (Latest Contact Info) Description 05/22/2005 [facility]patient [facility] Medicine [address] [phone] Keri Hernandes NP NO ADDRESS ON FILE DYSURIA (Primary Dx) Social History Tobacco Use Types Packs/Day Years Used Date Smoking Tobacco: Never Assessed Comments Unknown Sex and Gender Information Value Date Recorded Sex Assigned at Not on file 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
--- OUTSIDE RECORDS SUMMARY | 2025-03-06 09:56 | XMS_ITS | Encounter Summary ---
Author Organization [facility] Address [address] [place] [address] Care Team Providers Care Mandrel Press Hand Name Role Phone Virginia Ware MD Primary Care Provider [phone] Encounter Details Date Type Department Care Team (Latest Contact Info) Description 10/07/2005 Outpatient Historical [facility] Medicine- [address] [place] [phone] Keri Hernandes NP NO ADDRESS ON FILE Acute Sinusitis, Unspecified (Primary Dx); Acute Pharyngitis Social History Tobacco Use Types Packs/Day Years Used Date Smoking Tobacco: Never Assessed Comments Unknown Sex and Gender Information Value Date Recorded Sex Assigned at Not on file 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
--- OUTSIDE RECORDS SUMMARY | 2025-03-06 09:56 | XMS_ITS | Encounter Summary ---
Author Organization [facility] Address [address] [place] [address] Care Team Providers Care Electronic Operator Name Role Phone Virginia Ware MD Primary Care Provider [phone] Reason for Referral * Radiology Services (Routine) - Closed Specialty Diagnoses / Procedures Referred By Contac t Referred To Contact Diagnoses Abnormal mammogram Procedures MAMMO DIAG BILAT 3D MYAH W OR WO CAD MAMMO DIAGNOSTIC BILATERAL W OR WO CAD CHG DIAGNOSTIC MAMMOGRAPHY COMPUTER-AIDED DETCJ BI CHG DIGITAL BREAST TOMOSYNTHESIS BILATERAL Les Haines MD [address] [facility] [address] [place] [address] Phone: tel: fax: Referral ID Status Reason Start Date Expiration Date Visits Re quested Visits Authorized [id number] Closed 10/22/2018 11/22/2019 1 1 Encounter Details Date Type Department Care Team (Late st Contact Info) Description 04/25/2019 [facility] [address] [facility] [address] [place] [address] Les Haines MD [address] [facility] [address] [place] [phone] Abnormal mammogram Social History Tobacco Use Types Packs/Day Years Used Date Smoking Tobacco: Never Smokeless Tobacco: Never Alcohol Use Standard Drinks/Week Comments Yes 0.8 (1 standard drink = 0.6 oz p ure alcohol) q 2 months Comments No Sex and Gender Information Value Date Recorded Sex Assigned at Not on file Legal Sex Female 4:49 AM INDUSTRIAL HYGIENIST Gender Identity Not on file Sexual Orientation Not on file Occupation Industry Job Start Date Job End Date Not on file Not on file Not on file Not on file Not on file Not on file Not on file Not on file documented as of this encounter Plan of Treatment Not on file documented as of this encounter Results * (ABNORMAL) MAMMO DIAG BILAT 3D MYAH W OR WO CAD (04/25/2019 2:09 PM INDUSTRIAL HYGIENIST) Anatomical Region Laterality Modality Breast Bilateral Mammography 04/25/2019 2:09 PM INDUSTRIAL HYGIENIST Impressions 04/25/2019 2:16 PM INDUSTRIAL HYGIENIST IMPRESSION: Please see below. Exam: MAMMO DIAG BILAT 3D MYAH W OR WO CAD Date/Time of Exam: 04/25/2019 2:09 PM Reason For Exam: See Diagnosis. Diagnosis: Abnormal mammogram. Follow-up of calcifications in the left breast. COMPARISON: Prior mammogram on October 22, 2018, April 06 and April 21, 2018. Technique: Bilateral diagnostic digital mammogram with CAD and 3-D tomographic images FINDINGS: The calcifications in the left breast are stable in appearance. No suspicious masses, suspicious new clustered microcalcifications or architectural distortion are seen. IMPRESSION: 1. Stable calcifications in the left breast with no mammographic evidence of malignancy. 2. A left mammogram is recommended in 6 months to reassess stability. 3. Category 3 4. CAD and 3-D tomographic images Patient information entered into a reminder system with a target due date for the next mammogram (0770S) PLEASE NOTE: 1. In 10% of patients, cancers are not visible on mammography. 2. If a mass is felt, a physical examination, by a physician, is recommended. 3. If a suspicious lump is felt, biopsy should not be deferred because of a negative mammography. 4. ASSESSMENT BIRADS CATEGORIES: 0. Needs additional imaging evaluation, 1. Negative, 2. Benign, 3. Probably benign, short interval follow-up suggested, 4.Suspicious, 5. Highly Suggestive of Malignancy. NOTE TO PHYSICIAN THIS PATIENT LISTED YOU THE PHYSICIAN OF CHOICE. YOU MAY OR MAY NOT HAVE ORDERED THIS EXAM. IF YOU NEED TO CALL HER, THE HOME PHONE IS LISTED ABOVE. THANK YOU. Narrative Procedure Note Kailee Ponce MD - 04/25/2019 IMPRESSION: Please see below. Exam: MAMMO DIAG BILAT 3D MYAH W OR WO CAD Date/Time of Exam: 04/25/2019 2:09 PM Reason For Exam: See Diagnosis. Diagnosis: Abnormal mammogram. Follow-up of calcifications in the left breast. COMPARISON: Prior mammogram on October 22, 2018, April 06 and April 21, 2018. Technique: Bilateral diagnostic digital mammogram with CAD and 3-D tomographic images FINDINGS: The calcifications in the left breast are stable in appearance. No suspicious masses, suspicious new clustered microcalcifications or architectural distortion are seen. IMPRESSION: 1. Stable calcifications in the left breast with no mammographic evidence of malignancy. 2. A left mammogram is recommended in 6 months to reassess stability. 3. Category 3 4. CAD and 3-D tomographic images Patient information entered into a reminder system with a target due date for the next mammogram (0900C) PLEASE NOTE: 1. In 10% of patients, cancers are not visible on mammography. 2. If a mass is felt, a physical examination, by a physician, is recommended. 3. If a suspicious lump is felt, biopsy should not be deferred because of a negative mammography. 4. ASSESSMENT BIRADS CATEGORIES: 0. Needs additional imaging evaluation, 1. Negative, 2. Benign, 3. Probably benign, short interval follow-up suggested, 4.Suspicious, 5. Highly Suggestive of Malignancy. NOTE TO PHYSICIAN THIS PATIENT LISTED YOU THE PHYSICIAN OF CHOICE. YOU MAY OR MAY NOT HAVE ORDERED THIS EXAM. IF YOU NEED TO CALL HER, THE HOME PHONE IS LISTED ABOVE. THANK YOU. us Les Haines MD MAMMO ORDERABLES Final Result documented in this encounter Visit Diagnoses Diagnosis Abnormal mammogram Abnormal mammogram, unspecified Abnormal mammogram Abnormal mammogram, unspecified documented in this encounter Care Teams Electronic Operator Relationship Specialty Start Date End Date Virginia Ware MD [address] [place] [address] PCP - General Internal Medicine 02/09/17 documented as of this encounter
--- OUTSIDE RECORDS SUMMARY | 2025-03-06 09:56 | XMS_ITS | Encounter Summary ---
Author Organization [facility] Address [address] [place] [address] Care Team Providers Care Freelance Operator Name Role Phone Virginia Ware MD Primary Care Provider [phone] Encounter Details Date Type Department Care Team ([facility] st Contact Info) Description 04/07/2016 Ancillary Orders [facility] Test Scheduling [address] [place] [phone] Nel Villatoro MD [address] [place] [address] Encounter for screening mammogram for malignant neoplasm of breast (Primary Dx) Social History Tobacco Use Types Packs/Day Years Used Date Smoking Tobacco: Never Smokeless Tobacco: Never Alcohol Use Standard Drinks/Week Comments Yes 0.8 (1 standard drink = 0.6 oz p ure alcohol) q 2 months Comments No Sex and Gender Information Value Date Recorded Sex Assigned at Not on file Legal Sex Female 4:49 AM CLOTH HAND Gender Identity Not on file Sexual Orientation Not on file Occupation Industry Job Start Date Job End Date Not on file Not on file Not on file Not on file Not on file Not on file Not on file Not on file documented as of this encounter Plan of Treatment Not on file documented as of this encounter Visit Diagnoses Diagnosis Encounter for screening mammogram for malignant neoplasm of breast- Primary Other screening mammogram documented in this encounter Care Teams Freelance Operator Relationship Specialty Start Date End Date Virginia Ware MD [address] [place] [phone] PCP - General Internal Medicine 02/09/17 documented as of this encounter
--- OUTSIDE RECORDS SUMMARY | 2025-03-06 09:56 | XMS_ITS | Clinical Summary ---
Author Organization [facility] Address [address] [place] [address] Attn: Epic Prelude ADT SALMA ROGER [address] Care Team Providers Care Decorative Engraver Name Role Phone Unavailable Primary Care Provider Unavailabl e Allergies Active Allergy Reactions Criticality Noted Date Comments Sulfamethoxazole Rash Low 01/27/2023 Tramadol Hallucination Low 07/02/2018 Trimethoprim Rash Low 01/27/2023 Medications CALCIUM CARBONATE-VITAMI N D3 ORAL Take by mouth daily. Active escitalopram oxalate (LEXAPRO) 10 mg tabletIndication s:Mild episode of recurrent major depressive disorder take 1 tablet every day 90 Tablet 07/27/2023 Active acetaminophen (TYLENOL) 500 mg tablet Take 500 mg by mouth every 6 hours as needed. Active omeprazole (PriLOSEC) 40 mg Capsule, Delayed Release(E.C.)Ind ications:Gastroe sophageal reflux disease, unspecified whether esophagitis present TAKE 1 CAPSULE EVERY DAY 100 Capsule 11/17/2024 Active Active Problems Problem Noted Date Diagnosed Date Frail elderly 08/22/2021 Pelvic mass 08/04/2019 Urge incontinence 02/16/2019 Status post total knee replacement using cement, right 01/10/2019 Vaginal atrophy 11/11/2018 Menopause 10/15/2018 Osteopenia of neck of right femur 10/15/2018 Abnormal mammogram 10/15/2018 Status post total knee replacement using cement, left 09/24/2018 Edema of left lower extremity 09/05/2018 Fall 09/05/2018 Lip lesion 09/05/2018 Closed compression fracture of L1 vertebra 09/05 Ovarian cyst, right 09/05/2018 Acute midline low back pain without sciatica Urinary incontinence 03/25/2017 Acute blood loss as cause of postoperative anemi a 03/17/2017 Status post total replacement of left hip 2016 Essential hypertension 03/16/2017 Constipation, unspecified 03/16/2017 Normocytic anemia 03/16/2017 Acute pain of left knee 03/16/2017 Routine general medical exam ination at a health care facility 02/25/2017 On hormone replacement therapy 12/05/2015 Benign hypertension 10/26/2015 Reactive depression (situational) 10/26/2015 Acute postoperative pain of left hip 10/25/2015 Primary osteoarthritis of right knee 10/25/2015 Primary osteoarthritis of left knee 10/25/2015 Compression fracture of twel fth thoracic vertebra with delayed healing 09/26/2015 Low back pain with sciatica 09/25/2015 Enthesopathy of hip region 07/20/2015 Mixed hyperlipidemia 04/10/2015 Vitamin D insufficiency 04/10/2015 Family history of thyroid disease 04/10/2015 Primary osteoarthritis of left hip 10/19/2013 LBBB (left bundle branch block) 09/13/2013 Healthcare maintenance 11/17/2012 Migraine headaches GERD (gastroesophageal reflux disease) Allergic rhinitis Osteoarthritis Osteopenia Atrophic vaginitis Post menopausal syndrome Urge and stress incontinence Diverticulosis Resolved Problems Problem Noted Date Diagnosed Date Resolved Date LV dysfunction 10/13/2013 02/19/2016 Unstable angina 09/13/2013 01/16/2014 Encounters Date Type Department Care Team Description 02/22/2025 External Device Data [facility] ABSTRACTION Provider, Abstract 02/07/2025 External Device Data [facility] ABSTRACTION Provider, Abstract 01/04/2025 External Device Data [facility] ABSTRACTION Provider, Abstract 01/04/2025 External Device Data [facility] ABSTRACTION Provider, Abstract 12/13/2024 External Device Data [facility] ABSTRACTION Provider, Abstract 12/13/2024 External Device Data [facility] ABSTRACTION Provider, Abstract 12/07/2024 External Device Data [facility] ABSTRACTION Provider, Abstract 12/06/2024 External Device Data [facility] ABSTRACTION Provider, Abstract from Last 3 Months Immunizations Immunization Administration Dates Next Due (PFIZER)(12 YR UP) COVID-19 VACCINE - EMERGENCY USE AUTHORIZATION, MRNA, [id number](PF) 30 MCG/0.3 ML IM SUSP 03/18/2021,08/01/2020,07/11/2020 (PNEUMOVAX 23)(50 YRS UP) PN EUMOCOCCAL POLYSACCHARIDE (PPV23) 0.5 ML, IM 10/24/2016 (PREVNAR 13)(6 WKS UP) PNEUM OCOCCAL CONJUGATE (PCV13) 0.5 ML, IM 04/10/2015 INFLUENZA VACCINE HIGH DOSE QUADRIVALENT 65 YR UP PF IM 03/08/2022,02/22/2020,04/12/2019,04/12,03/03/2018,03/03/2018,03/29/2017 ,03/17/2016,03/17/2016 INFLUENZA VACCINE HIGH DOSE TRIVALENT SPLIT VIRUS, (65 YR UP), 0.5ML (PF), IM 02/25/2024 INFLUENZA VACCINE QUADRIVALE NT 3 YR UP PF IM 03/29/2017 INFLUENZA VACCINE QUADRIVALE NT ADJ 65 YR UP PF IM 03/18/2021 Influenza Seasonal Unspecifi ed Formulation IM 05/01/2023,03/26/2022,03/29/2017,04/06,03/23/2013,04/11/2008,04/08/2007 ,03/18/2005,05/11/2001,04/22/1999 Influenza Vaccine High Dose 65+ Yrs IM 1 ,03/03/2018,03/17/2016,04/10 Influenza Vaccine Nasal 04/02/2021,02/22/2020 PNEUMOVAX (PPSV23) pneumococ joanne polysaccharide 23-valent Vaccine 10/24/2016 Pneumococcal conjugate, unsp ecified formulation 03/23/2013 Skin Test TB 07/03/2018 Zoster Vaccine Live SQ 06/19/2022,04/15/2022,06/2006 Family History Medical History Relation Name Comments Heart Disease Brother 1 Lung Cancer Brother 1 Healthy Daughter 1 Healthy Daughter 2 Cancer Father Stroke Maternal Grandfather Stroke Maternal Grandmother Other Mother acute pancreati s Unknown Paternal Grandfather Breast Cancer Neg Hx Colon Cancer Neg Hx Relation Name Status Comments Brother 1 Brother 2 87 Alive Daughter 1 Alive Daughter 2 Alive Father Maternal Grandfather Maternal Grandmother Mother Paternal Grandfather Social History Tobacco Use Types Packs/Day Years Used Date Smoking Tobacco: Never Smokeless Tobacco: Never Tobacco Cessation:Counseling Given: No Alcohol Use Standard Drinks/Week Comments Yes 0.8 (1 standard drink = 0.6 oz p ure alcohol) Feeling Safe Answer Date Recorded Within the last year, have y ou been afraid of your partner or ex-partner? Patient declined 07/21/2019 Within the last year, have y ou been humiliated or emotionally abused in other ways by your partner or ex-partner? Patient declined 07/21/2019 Within the last year, have y ou been kicked, hit, slapped, or otherwise physically hurt by your partner or ex-partner? Patient declined 07/21/2019 Within the last year, have y ou been raped or forced to have any kind of sexual activity by your partner or ex-partner? Patient declined 07/21/2019 Social Connections Answer Date Recorded In a typical week, how many times do you talk on the phone with family, friends, or neighbors? Patient declined 07/21/2019 How often do you get togethe r with friends or relatives? Patient declined 07/21/2019 How often do you attend mu-ism or taoist serv ices? Patient declined 07/21/2019 Do you belong to any clubs o r organizations such as mu-ism groups, unions, fraternal or athletic groups, or school groups? Patient declined 07/21/2019 How often do you attend meet ings of the clubs or organizations you belong to? Patient declined 07/21/2019 Are you , , di vorced, , never , or living with a partner? Patient declined 07/21/2019 Financial Resource Strain Answer Date R ecorded How hard is it for you to pa y for the very basics like food, housing, medical care, and heating? Not hard at all 05/08/2022 Food Insecurity Answer Date Recorded In the past 12 months, have you worried that your food would run out before you had money to buy more? Never true 05/08/2022 In the past 12 months, did y ou run out of food and didn't have money to buy more? Never true 05/08/2022 Transportation Needs Answer Date Record ed In the past 12 months, has l ack of transportation kept you from medical appointments or from getting medications? No 05/08/2022 Lack of Transportation (Non-Medical) Not on file 05/08/2022 Feeling Safe Answer Date Recorded Are you in a relationship wi th someone who hurts you emotionally and/or physically? 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 Gender Identity Not on file Sexual Orientation Not on file Last Filed Vital Signs Vital Sign Reading Time Taken Comments Blood Pressure 125/63 06/15/2024 7:29 AM CHANNEL DEVELOPMENT DIRECTOR Pulse 78 06/15/2024 7:29 AM CHANNEL DEVELOPMENT DIRECTOR Temperature 36.7 C (98.1 F) 06/15/2024 7:29 AM CHANNEL DEVELOPMENT DIRECTOR Respiratory Rate 16 06/15/2024 7:29 AM CHANNEL DEVELOPMENT DIRECTOR Oxygen Saturation 92% 06/15/2024 7:29 AM CHANNEL DEVELOPMENT DIRECTOR Inhaled Oxygen Concentration - - Weight 66 kg (145 lb 7 oz) 06/15/2024 1:02 AM CS T Height 170.2 cm (5' 7 ) 06/14/2024 10:15 AM CHANNEL DEVELOPMENT DIRECTOR Body Mass Index 22.78 06/14/2024 10:15 AM CHANNEL DEVELOPMENT DIRECTOR Plan of Treatment Health Maintenance Due Date Last Done Comments DTAP/TDAP/TD VACCINES (1 - Tdap) 1960 RSV VACCINE (60+ or ) (1 - 1-dose 75+ series) 2016 ZOSTER VACCINE (2 of 3) 08/14/2022 06/19/20 22, 04/15/2022, 10/20/2006 INFLUENZA VACCINE (#1) 2025 4, 05/01/2023, 03/26/2022, Additional history exists COVID-19 Vaccine (2024-2 6 season) 2025 05/01/2023, 04/02/2022, 10/14/2021, Additional history exists OSTEOPOROSIS SCREENING 01/28/2026 1, 10/26/2018, 10/26/2018, Additional history exists COLORECTAL SCREENING Discontinued 02/01/2010 Colorectal Cancer Screening Discontinued FIT-DNA Q 3 years Discontinued 11/14/2014 PNEUMOCOCCAL VACCINE 50+ YEARS Completed 0 10/24/2016, 10/24/2016, 04/10/2015, Additional history exists FIT/FOBT Q 1 year Discontinued Flex Sig/CT Colonography Q 5 years Discontinued Medical Devices Implanted Type Area Boiler Operator Helper Device Identifier Shelf Expiration Date Model / Serial / Lot Cement Smartset Hv 40gr 3092-040 - [id number] Implanted:Qty: 1 on 06/29/2018 by Jez Carcamo MD Cement Left: Knee [employer] 02/19/2019 [id number] / / [id number] Cement Smartset Hv 40gr 3092-040 - [id number] Implanted:Qty: 1 on 11/23/2018 by Jez Carcamo MD Cement Right: Knee [employer] 04/21/2020 [id number] / / [id number] Clip Hemolok Ml 637951 - Csc - [id number] Implanted:Qty: 1 on 06/14/2024 by Jaswant Franklin MD at [facility] Clip Right: Abdomen TELEFLEX- WECK CLOSURE SYS [id number] 02/23/2029 [id number] / / [id number] Head Fem Biolox Option 36mm 650-1057 - [id number] Implanted:Qty: 1 on 03/10/2017 by Jez Carcamo MD Hip Left: Hip [employer] 08/06/2026 650-1057 / / [id number] Liner Arcomxl Neut 36mm Dayna [id number] - [id number] Implanted:Qty: 1 on 03/10/2017 by Jez Carcamo MD Hip Left: Hip [employer] 12/08/2021 [id number] / / [id number] Shell G7 Pps Lmtd Hl 52mm [id number] - [id number] Implanted:Qty: 1 on 03/10/2017 by Jze Carcamo MD Hip Left: Hip [employer] 01/30/2027 [id number] / / [id number] Slv Biolox Delta Optn Type 1 650-1067 - [id number] Implanted:Qty: 1 on 03/10/2017 by Jez Carcamo MD Hip Left: Hip [employer] 11/27/2026 650-1067 / / [id number] Stem Fem Echo Bimetric Por Lat 512152 - [id number] Implanted:Qty: 1 on 03/10/2017 by Jez Carcamo MD Hip Left: Hip [employer] 12/26/2026 [id number] / / [id number] Comp Fem Sigma Ps Foiling Machine Adjuster Sz3 1959--300 - [id number] Implanted:Qty: 1 on 06/29/2018 by Jez Carcamo MD Knee Left: Knee [employer] 02/20/2028 [id number] / / [id number] Comp Tib Sigma Mbt Keel Sz3 1294-33-130 - [id number] Implanted:Qty: 1 on 06/29/2018 by Jez Carcamo MD Knee Left: Knee [employer] 11/19/2022 1294-33-130 / / [id number] Insert Tib Sigma Rps Sz3 -2131 - [id number] Implanted:Qty: 1 on 06/29/2018 by Jez Carcamo MD Knee Left: Knee [employer] 11/19/2022 96-2132 / / [id number] Patella Dome 3peg 35mm 96-100 - [id number] Implanted:Qty: 1 on 06/29/2018 by Jez Carcamo MD Knee Left: Patella [employer] 07/22/2022 96-0101 / / [id number] Comp Fem Sigma Ps Foiling Machine Adjuster Sz3 1959-300 - [id number] Implanted:Qty: 1 on 11/23/2018 by Jez Carcamo MD Knee Right: Knee [employer] 08/19/202850-300 / / [id number] Comp Tib Sigma Mbt Keel Sz3 1294-33-130 - [id number] Implanted:Qty: 1 on 11/23/2018 by eJz Carcamo MD Knee Right: Knee [employer] 09/20/2023 1294-33-130 / / [id number] Insert Tib Sigma Rps Sz3 -2130 - [id number] Implanted:Qty: 1 on 11/23/2018 by Jez Carcamo MD Knee Right: Knee [employer] 07/22/2023 96-2131 / / [id number] Patella Dome 3peg 35mm 96-0101 - [id number] Implanted:Qty: 1 on 11/23/2018 by Jez Carcamo MD Knee Right: Knee [employer] 05/21/2023 96-0101 / / [id number] Mesh Bard [id number] - [id number] Implanted:Qty: 1 on 06/14/2024 by Jaswant rFanklin MD at [facility] Mesh Left: Abdomen BARD DAVOL [id number] 10/17/2028 [id number] / / [id number] Mesh Bard [id number] - [id number] Implanted:Qty: 1 on 06/14/2024 by Jaswant Franklin MD at [facility] Mesh Right: Abdomen BARD DAVOL [id number] 10/17/2028 [id number] / / [id number] Cable W/Crimp Cocr 1.7 X 750mm 611.105.01s - [id number] Implanted:Qty: 1 on 03/10/2017 by Jez Carcamo MD Other Left: Hip [employer]ES [employer]AT[employer] 08/19/2021 611.105. 01S / / [id number] Screw G7 Lp 6.5x25mm [id number] - [id number] Implanted:Qty: 1 on 03/10/2017 by Jez Carcamo MD Screw Left: Hip [employer] 12/24/2026 [id number] / / [id number] Screw G7 Lp 6.5x30mm [id number] - [id number] Implanted:Qty: 1 on 03/10/2017 by Jez Carcamo MD Screw Left: Hip [employer] 12/07/2026 [id number] / / [id number] Procedures Procedure Name Priority Date/Time Associated Diagnosis Comments XR DEXA BONE DENSITY AXIAL 1 OR MORE SITES Routine 01/28/2021 8:58 AM CDT Osteoporosis, unspecified osteoporosis type, unspecified pathological fracture presence COLON CANCER SCREEN, STOOL DNA Routine 11/14/2014 6:00 PM CDT from Last 3 Months or Most Recently Relevant to Health Maintenance Results * XR DEXA BONE DENSITY AXIAL 1 OR MORE SITES (01/28/2021 8:58 AM CDT) T-SCORE FEMUR -2.20 -1.0 - 1.0 [facility] T-SCORE SPINE 0.00 -1.0 - 1.0 [facility] T-SCORE FEMORAL NECK (RIGHT) -1.30 -1.0 - 1.0 [facility] Anatomical Region Laterality Modality Computed Radiogr aphy Narrative 01/29/2021 6:40 AM CDT [facility] BONE MINERAL DENSITY (DXA) STUDY Requesting Provider: Trevin Leary PA Date of Service: January 28, 2021 Demographics:Age:80 y.o. Sex: female Ethnicity: Height: 66.2 inches weight: 175 pounds Indication: Follow-up bone mineral density measurement by DEXA Risk Factors: Postmenopausal, prior history of a compression fracture DXA READING Shelly Cortes underwent a DXA scan of the lumbar spine and right hip on a [employer] machine. No technical difficulties encountered. Measurements of the lumbar spine and right hip were obtained. The lumbar spine BMD is 1.200 g/cm2 with T-score of 0.0. Please note L1 was excluded for the study. The R femoral neck BMD is 0.854 g/cm2 with T-score of -1.3. The R hip BMD is 0.734 g/cm2 with T-score of -2.2. Today's examination is compared to a technically similar prior study of the lumbar spine and right hip that was completed on October 26, 2018. In the interim, there has been a 7.9% increase in the bone mineral density of the lumbar spine and no significant change in the right total hip bone mineral density. At this facility, the least significant change in the BMD with 95% confidence is 0.036 g/cm2 at the lumbar spine, and 0.016 g/cm2 at the total hip mean, and 0.032 g/cm2 at the total hip. FRAX: 10-year probability of a major osteoporotic fracture is 18.5% and a hip fracture is 3.7% Diagnosis: Osteoporosis on therapy with Prolia with a significant increase in the bone mineral density at the lumbar spine and stable bone mineral density at the right total hip Recommendations: 1. The patient meets the NOF guidelines for prescription intervention to treat osteoporosis. 2. Secondary causes of bone loss should be evaluated if clinically indicated. 3. Calcium 4732-1277 mg p.o. q day and Vit D 800-1000 units a day. 4. Follow-up BMD by DXA in 2 years. PLEASE NOTE: 1. The National Osteoporosis Foundation (NOF) recommends initiation of pharmacologic therapy on the following: In those with hip or vertebral (clinical or asymptomatic) fractures. In those with T-scores <-2.5 at the femoral neck, total hip or lumbar spine by DXA. In postmenopausal women and men age 50 or older with low bone mass (T-score between -1 and -2.5) at the femoral neck, total hip or lumbar spine by DXA and a 10 year hip fracture probability >3% or a 10 year major osteoporosis related fracture probability >20% based on the [place] absolute fracture risk model (FRAX). 2. The 2016 [place] [employer] Clinical Heat Treater Helper Clinical practice guidelines diagnostic criteria for the diagnosis of postmenopausal osteoporosis are the following: T-score -2.5 or below in the lumbar spine, femoral neck, total hip, and/or one-third radius Low-Trauma spine or hip fracture (regardless of BMD) Osteopenia or low bone mass (T-score between -1 and -2.5) with a fragility fracture of proximal humerus, pelvis, or possibly distal forearm Low bone mass or osteopenia and a high FRAX fracture probability (10 year hip fracture probability >3% or a 10 year major osteoporosis related fracture probability >20% based on the [place] absolute fracture risk model) Procedure Note Daily, Owen Caballero MD - 01/29/2021 [facility] BONE MINERAL DENSITY (DXA) STUDY Requesting Provider: Trevin Leary PA Date of Service: January 28, 2021 Demographics:Age:80 y.o. Sex: female Ethnicity: Height: 66.2 inches weight: 175 pounds Indication: Follow-up bone mineral density measurement by DEXA Risk Factors: Postmenopausal, prior history of a compression fracture DXA READING Shelly S Sebastian underwent a DXA scan of the lumbar spine and right hipon a [employer] machine. No technical difficulties encountered.Measurements of the lumbar spine and right hip were obtained. The lumbar spine BMD is 1.200 g/cm2 with T-score of 0.0. Please note L1was excluded for the study. The R femoral neck BMD is 0.854 g/cm2 withT-score of -1.3. The R hip BMD is 0.734 g/cm2 with T-score of -2.2. Today's examination is compared to a technically similar prior study ofthe lumbar spine and right hip that was completed on October 26, 2018. In theinterim, there has been a 7.9% increase in the bone mineral density of thelumbar spine and no significant change in the right total hip bone mineraldensity. At this facility, the least significant change in the BMD with95% confidence is 0.036 g/cm2 at the lumbar spine, and 0.016 g/cm2 at thetotal hip mean, and 0.032 g/cm2 at the total hip. FRAX: 10-year probability of a major osteoporotic fracture is 18.5% and ahip fracture is 3.7% Diagnosis: Osteoporosis on therapy with Prolia with a significant increasein the bone mineral density at the lumbar spine and stable bone mineraldensity at the right total hip Recommendations: 1. The patient meets the NOF guidelines for prescription intervention totreat osteoporosis. 2. Secondary causes of bone loss should be evaluated if clinicallyindicated. 3. Calcium 4139-5433 mg p.o. q day and Vit D 800-1000 units a day. 4. Follow-up BMD by DXA in 2 years. PLEASE NOTE: 1. The National Osteoporosis Foundation (NOF) recommends initiation ofpharmacologic therapy on the following: In those with hip or vertebral (clinical or asymptomatic) fractures. In those with T-scores <-2.5 at the femoral neck, total hip or lumbarspine by DXA. In postmenopausal women and men age 50 or older with low bone mass(T-score between -1 and -2.5) at the femoral neck, total hip or lumbarspine by DXA and a 10 year hip fracture probability >3% or a 10 year majorosteoporosis related fracture probability >20% based on the [place] absolutefracture risk model (FRAX). 2. The 2016 [place] [employer] Clinical Heat Treater Helper Clinicalpractice guidelines diagnostic criteria for the diagnosis ofpostmenopausal osteoporosis are the following: T-score -2.5 or below in the lumbar spine, femoral neck, total hip,and/or one- third radius Low-Trauma spine or hip fracture (regardless of BMD) Osteopenia or low bone mass (T-score between -1 and -2.5) with afragility fracture of proximal humerus, pelvis, or possibly distalforearm Low bone mass or osteopenia and a high FRAX fracture probability (10year hip fracture probability >3% or a 10 year major osteoporosis relatedfracture probability >20% based on the [place] absolute fracture risk model) Trevin [facility] ORDERABL ES Final Result * COLON CANCER SCREEN, STOOL DNA (11/14/2014 6:00 PM CDT) COLOGUARD RESULT Negative [facility] COLOGUARD COMMENT [facility] Stool 11/14/2014 6:00 PM CDT Javid Cortez MD BODY FLUIDS AND STOOLS E dited Result - Final [facility] from Last 3 Months or Most Recently Relevant to Health Maintenance Insurance MEDICARE PART A AND B [employer] MEDICARE SUPPLEMENT Advance Directives For more information, please contact: [phone] * Full Code (Latest Code Status on File) Date Activated Date Inactivated Comments 06/14/2024 4:43 PM 06/15/2024 4:12 PM
--- OUTSIDE RECORDS SUMMARY | 2025-03-06 09:56 | XMS_ITS | Encounter Summary ---
Author Organization [facility] Address [address] [place] [address] Care Team Providers Care Sales Account Coordinator Name Role Phone Virginia Ware MD Primary Care Provider Encounter Details Date Type Department Care Team (Late st Contact Info) Description 09/12/2013 Ancillary Orders [facility] Laboratory Services [address] [place] [phone] Gunner Torres MD [address] [place] [phone] Social History Tobacco Use Types Packs/Day Years Used Date Smoking Tobacco: Never Smokeless Tobacco: Never Alcohol Use Standard Drinks/Week Comments Yes 0.8 (1 standard drink = 0.6 oz p ure alcohol) q 2 months Comments No Sex and Gender Information Value Date Recorded Sex Assigned at Not on file Legal Sex Female 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
--- OUTSIDE RECORDS SUMMARY | 2025-03-06 09:56 | XMS_ITS | Encounter Summary ---
Author Organization [facility] Address [address] [place] [address] Care Team Providers Care Spline Rolling Machine Job Setter Name Role Phone Virginia Ware MD Primary Care Provider [phone] Encounter Details Date Type Department Care Team (Latest Contact Info) Description 02/04/1999 Outpatient Historical [facility] [place] [address] [facility] [address] [place] [phone] Carlos Weir MD [address] [phone] Cervicalgia (Primary Dx); Abdominal pain, unspecified site; Routine medical exam; Screening for malignant neoplasm of the rectum Social History Tobacco Use Types Packs/Day Years Used Date Smoking Tobacco: Never Assessed Comments Unknown Sex and Gender Information Value Date Recorded Sex Assigned at Not on file Legal Sex Female 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
--- OUTSIDE RECORDS SUMMARY | 2025-03-06 09:56 | XMS_ITS | Encounter Summary ---
Author Organization [facility] Address [address] [place] [address] Care Team Providers Care Print Designer Name Role Phone Virginia Ware MD Primary Care Provider [phone] Encounter Details Date Type Department Care Team (Late st Contact Info) Description 09/12/2013 Ancillary Orders [facility] General Laboratory Services [address] [place] [phone] Gunner Torres MD [address] [place] [phone] Social History Tobacco Use Types Packs/Day Years Used Date Smoking Tobacco: Never Smokeless Tobacco: Never Alcohol Use Standard Drinks/Week Comments Yes 0.8 (1 standard drink = 0.6 oz p ure alcohol) q 2 months Comments No Sex and Gender Information Value Date Recorded Sex Assigned at Not on file 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
--- OUTSIDE RECORDS SUMMARY | 2025-03-06 09:56 | XMS_ITS | Encounter Summary ---
Author Organization [facility] Address [address] [place] [address] Care Team Providers Care Certified Procedural Coder Name Role Phone Virginia Ware MD Primary Care Provider [phone] Reason for Referral * Radiology Services (Routine) - Closed Specialty Diagnoses / Procedures Referred By Contac t Referred To Contact Radiology Diagnoses Postoperative follow-up Vitamin D insufficiency Vaginal atrophy Osteopenia of multiple sites Abnormal mammogram Procedures MAMMO DIAG UNI LEFT 3D MYAH W OR WO CAD MAMMO DIAG BILAT 3D MYAH W OR WO CAD MAMMO DIAGNOSTIC BILATERAL W OR WO CAD CHG DIAGNOSTIC MAMMOGRAPHY COMPUTER-AIDED DETCJ BI CHG DIGITAL BREAST TOMOSYNTHESIS BILATERAL CHG DIAGNOSTIC MAMMOGRAPHY COMPUTER-AIDED DETCJ UNI CHG DIGITAL BREAST TOMOSYNTHESIS UNILATERAL Les Haines MD [address] [address] Phone: tel: fax: [facility] [address] [place] [address] Phone: tel: fax: Referral ID Status Reason Start Date Expiration Date V isits Requested Visits Authorized [id number] Closed [facility] CTS to Schedule 08/25/2019 09/24/2020 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 Encounter Details Date Type Department Care Team (Latest Contact Info) Description 11/30/2019 Ancillary Orders [facility] Kristyn [address] [place] [phone] Les Haines MD [address] [place] [phone] Postoperative follow-up; Vitamin D insufficiency; Vaginal atrophy; Osteopenia of multiple sites; Abnormal mammogram Social History Tobacco Use Types Packs/Day Years Used Date Smoking Tobacco: Never Smokeless Tobacco: Never Alcohol Use Standard Drinks/Week Comments Yes 0.8 (1 standard drink = 0.6 oz p ure alcohol) q 2 months Feeling Safe Answer Date Recorded Within the [...] declined 07/21/2019 How often do you attend synagogue or scientology serv ices? Patient declined 07/21/2019 Do you belong to any clubs o r organizations such as synagogue groups, unions, fraternal or athletic groups, or [...] like food, housing, medical care, and heating? Patient declined 07/21/2019 Food Insecurity Answer Date Recorded Within the past 12 months, y ou worried that your food would run out before you got the money to buy more. Patient declined Within the past 12 months, t he food you bought just didn't last and you didn't have money to get more. Patient declined Transportation Needs Answer Date Record ed In the past 12 months, has l ack of transportation kept you from medical appointments or from getting medications? Patient declined 07/21/2019 In the past 12 months, has l ack of transportation kept you from meetings, work, or from getting things needed for daily living? 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 No / Unsure 11/30/2019 1:57 PM CDT documented as of this encounter Plan of Treatment Not on file documented as of this encounter Results * (ABNORMAL) MAMMO DIAG UNI LEFT 3D MYAH W OR WO CAD (11/30/2019 2:12 PM CDT) Anatomical Region Laterality Modality Breast Left Mammography 11/30/2019 2:12 PM CDT Impressions 11/30/2019 2:17 PM CDT IMPRESSION: Please see below. Exam: MAMMO DIAG UNI LEFT 3D MYAH W OR WO CAD Date/Time of Exam: 11/30/2019 2:12 PM Reason For Exam: See Diagnosis. Diagnosis: Postoperative follow-up; Vitamin D insufficiency; Vaginal atrophy; Osteopenia of multiple sites; Abnormal mammogram. Technique: Diagnostic digital left mammogram with CAD and 3-D tomographic images Comparison: Prior mammograms most recent of which is April 25, 2019 Findings: The left mammogram is stable in appearance. The calcifications are stable in appearance. No suspicious masses or architectural distortion are seen. IMPRESSION: 1. Stable left mammogram with no mammographic evidence of malignancy. 2. A bilateral mammogram in 6 months is recommended. 3. CAD and 3-D tomographic images 4. Category 3 Patient information entered into a reminder system with a target due date for the next mammogram (7025F) PLEASE NOTE: 1. In 10% of patients, [...] Narrative Procedure Note Kailee Ponce MD - 11/30/2019 IMPRESSION: Please see below. Exam: MAMMO DIAG UNI LEFT 3D MYAH W OR WO CAD Date/Time of Exam: 11/30/2019 2:12 PM Reason For Exam: See Diagnosis. Diagnosis: Postoperative follow-up; Vitamin D insufficiency; Vaginal atrophy; Osteopenia of multiple sites; Abnormal mammogram. Technique: Diagnostic digital left mammogram with CAD and 3-D tomographic images Comparison: Prior mammograms most recent of which is April 25, 2019 Findings: The left mammogram is stable in appearance. The calcifications are stable in appearance. No suspicious masses or architectural distortion are seen. IMPRESSION: 1. Stable left mammogram with no mammographic evidence of malignancy. 2. A bilateral mammogram in 6 months is recommended. 3. CAD and 3-D tomographic images 4. Category 3 Patient information entered into a reminder system with a target due date for the next mammogram (7025F) PLEASE NOTE: 1. In 10% of patients, [...] documented in this encounter Visit Diagnoses Diagnosis Postoperative follow-up Follow-up examination, following unspecified surgery Vitamin D insufficiency Unspecified vitamin D deficiency Vaginal atrophy Postmenopausal atrophic vaginitis Osteopenia of multiple sites Abnormal mammogram Abnormal mammogram, unspecified Postoperative follow-up Follow-up examination, following unspecified surgery Vitamin D insufficiency Unspecified vitamin D deficiency Vaginal atrophy Postmenopausal atrophic vaginitis Osteopenia of multiple sites Abnormal mammogram Abnormal mammogram, unspecified documented in this encounter Care Teams Certified Procedural Coder Relationship Specialty Start Date End Date Virginia Ware MD [address] [place] [address] PCP - General Internal Medicine 02/09/17 documented as of this encounter
--- OUTSIDE RECORDS SUMMARY | 2025-03-06 09:56 | XMS_ITS | Encounter Summary ---
Author Organization [facility] Address [address] [place] [address] Care Team Providers Care Firefighter Marine Name Role Phone Virginia Ware MD Primary Care Provider [phone] Encounter Details Date Type Department Care Team (Late st Contact Info) Description 04/04/2014 Ancillary Orders [facility] General Laboratory Services [address] [place] [phone] Gunner Torres MD [address] [place] [phone] Social History Tobacco Use Types Packs/Day Years Used Date Smoking Tobacco: Never Smokeless Tobacco: Never Alcohol Use Standard Drinks/Week Comments Yes 0.8 (1 standard drink = 0.6 oz p ure alcohol) q 2 months Comments No Sex and Gender Information Value Date Recorded Sex Assigned at Not on file 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
--- OUTSIDE RECORDS SUMMARY | 2025-03-06 09:56 | XMS_ITS | Encounter Summary ---
Author Organization [facility] Address [address] [place] [address] Care Team Providers Care Internal Specialist Name Role Phone Virginia Ware MD Primary Care Provider [phone] Encounter Details Date Type Department Care Team (Late st Contact Info) Description 07/05/2007 Outpatient Historical [facility] Medicine [address] [phone] Kirby Ramachandran, NO ADDRESS ON FILE Social History Tobacco Use Types Packs/Day Years Used Date Smoking Tobacco: Never Assessed Comments Unknown Sex and Gender Information Value Date Recorded Sex Assigned at Not on file 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
--- OUTSIDE RECORDS SUMMARY | 2025-03-06 09:56 | XMS_ITS | Encounter Summary ---
Author Organization [facility] Address [address] [place] [address] Care Team Providers Care Field Staff Manager Name Role Phone Virginia Ware MD Primary Care Provider [phone] Encounter Details Date Type Department Care Team (Latest Contact Info) Description 11/30/2019 [facility] [address] [facility] [address] [place] [phone] Les Haines MD [address] [facility] [address] [place] [phone] Postoperative follow-up; Vitamin D insufficiency; Vaginal atrophy; [...] declined 07/21/2019 How often do you attend rastafarian or yazidi serv ices? 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
--- OUTSIDE RECORDS SUMMARY | 2025-03-06 09:56 | XMS_ITS | Encounter Summary ---
Author Organization [facility] Address [address] [place] [address] Care Team Providers Care Machined Parts Metal Sprayer Name Role Phone Virginia Ware MD Primary Care Provider [phone] Encounter Details Date Type Department Care Team (Latest Contact Info) Description 03/18/2005 Outpatient Historical [facility] Medicine [place] [address] [facility] [address] [place] [phone] Carlos Weir MD [address] [phone] OSTEOARTHROS NOS-UNSPEC (Primary Dx); HYPERLIPIDEMIA NEC/NOS; Vaccine for influenza Social History Tobacco Use Types Packs/Day Years Used Date Smoking Tobacco: Never Assessed Comments Unknown Sex and Gender Information Value Date Recorded Sex Assigned at Not on file 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 Gender Identity Not on file Sexual Orientation Not on file documented as of this encounter Plan of Treatment Not on file documented as of this encounter Visit Diagnoses Diagnosis Osteoarthrosis, unspecified whether generalized or localized, unspecified site- Primary Other and unspecified hyperlipidemia Vaccine for influenza Need for prophylactic vaccination and inoculation against influenza documented in this encounter Care Teams Machined Parts Metal Sprayer Relationship Specialty Start Date End Date Virginia Ware MD [address] [place] [address] PCP - General Internal Medicine 02/09/17 documented as of this encounter
--- OUTSIDE RECORDS SUMMARY | 2025-03-06 09:56 | XMS_ITS | Encounter Summary ---
Author Organization [facility] Address [address] [place] [address] Care Team Providers Care Center Machine Operator Name Role Phone Virginia Ware MD Primary Care Provider [phone] Encounter Details Date Type Department Care Team (Latest Contact Info) Description 06/23/2003 Outpatient Historical [facility] Medicine [place] [address] [facility] [address] [place] [phone] Carlos Weir MD [address] [phone] ACUTE BRONCHITIS (Primary Dx) Social History Tobacco Use Types Packs/Day Years Used Date Smoking Tobacco: Never Assessed Comments Unknown Sex and Gender Information Value Date Recorded Sex Assigned at Not on file 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
--- OUTSIDE RECORDS SUMMARY | 2025-03-06 09:56 | XMS_ITS | Encounter Summary ---
Author Organization [facility] Address [address] [place] [address] Care Team Providers Care Vascular Nurse Name Role Phone Larry Jordan MD Primary Care Provider [phone] Encounter Details Date Type Department Care Team (Late st Contact Info) Description 11/13/2021 Telephone [facility] Therapy Services [facility] (First floor of [facility]) [address] [place] [address] Alison Miranda, Ham Facer Social History Tobacco Use Types Packs/Day Years [...] declined 07/21/2019 How often do you attend confucianist or anabaptist serv ices? 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 No / Unsure 11/11/2021 12:18 PM CDT documented as of this encounter Plan of Treatment Not on file documented as of this encounter Visit Diagnoses Not on filedocumented in this encounter Care Teams Vascular Nurse Relationship Specialty Start Date End Date Larry Jordan MD [address] [facility] [address] [place] [address] PCP - General Family Practice 08/13/23 03/22/24 documented as of this encounter
--- OUTSIDE RECORDS SUMMARY | 2025-03-06 09:56 | XMS_ITS | Encounter Summary ---
Author Organization [facility] Address [address] [place] [address] Care Team Providers Care Landscape Supervisor Name Role Phone Virginia Ware MD Primary Care Provider [phone] Encounter Details Date Type Department Care Team (Latest Contact Info) Description 07/08/2000 Outpatient Historical [facility] Medicine- [address] [place] [phone] Kirby Ramachandran, NO ADDRESS ON FILE Acute sinusitis, unspecified (Primary Dx) Social History Tobacco Use Types Packs/Day Years Used Date Smoking Tobacco: Never Assessed Comments Unknown Sex and Gender Information Value Date Recorded Sex Assigned at Not on file 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
--- OUTSIDE RECORDS SUMMARY | 2025-03-06 09:56 | XMS_ITS | Encounter Summary ---
Author Organization [facility] Address [address] [place] [address] Care Team Providers Care Wildlife Protector Name Role Phone Virginia Ware MD Primary Care Provider [phone] Encounter Details Date Type Department Care Team (Latest Contact Info) Description 12/07/2006 Outpatient [facility] Medicine [address] [phone] Keri Hernandes NP NO ADDRESS ON FILE Dermatitis due to Plant (Primary Dx) Social History Tobacco Use Types Packs/Day Years Used Date Smoking Tobacco: Never Assessed Comments Unknown Sex and Gender Information Value Date Recorded Sex Assigned at Not on file 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
--- OUTSIDE RECORDS SUMMARY | 2025-03-06 09:56 | XMS_ITS | Encounter Summary ---
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
--- OUTSIDE RECORDS SUMMARY | 2025-03-06 09:56 | XMS_ITS | Encounter Summary ---
Author Organization [facility] Address [address] [place] [address] Care Team Providers Care Electrical Panel Builder Name Role Phone Virginia Ware MD Primary Care Provider [phone] Encounter Details Date Type Department Care Team (Late st Contact Info) Description 09/12/2013 Ancillary Orders [facility] General Laboratory Services [address] [place] [phone] Gunner Torres MD [address] [place] [phone] Social History Tobacco Use Types Packs/Day Years Used Date Smoking Tobacco: Never Smokeless Tobacco: Never Alcohol Use Standard Drinks/Week Comments Yes 0.8 (1 standard drink = 0.6 oz p ure alcohol) q 2 months Comments No Sex and Gender Information Value Date Recorded Sex Assigned at Not on file 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
--- OUTSIDE RECORDS SUMMARY | 2025-03-06 09:56 | XMS_ITS | Encounter Summary ---
Author Organization [facility] Address [address] [place] [address] Care Team Providers Care Forging Die Sinker Name Role Phone Virginia Ware MD Primary Care Provider [phone] Reason for Referral * Outpatient Services (Routine) - Closed Specialty Diagnoses / Procedures Referred By Maribel t Referred To Contact Radiology Diagnoses Visit for screening mammogram Procedures MAMMO SCRN BILAT 3D MYAH W OR WO CAD MAMMO SCREEN BILAT W OR WO CAD Ciera Trejo, ORGANIZATIONAL DEVELOPMENT MANAGER [address] [place] [address] Phone: tel: fax: [facility] [address] [place] [address] Phone: tel: fax: Referral ID Status Reason Start Date Expiration Date V isits Requested Visits Authorized [id number] Closed [facility] CTS to Schedule 03/03/2018 04/03/2019 1 1 Encounter Details Date Type Department Care Team (Late st Contact Info) Description 04/06/2018 Ancillary Orders [facility] Internal Medicine & Pediatrics [id number] [place] [phone] Ciera Trejo APRN [facility] [place] [phone] Visit for screening mammogram Social History Tobacco Use Types Packs/Day Years Used Date Smoking Tobacco: Never Smokeless Tobacco: Never Alcohol Use Standard Drinks/Week Comments Yes 0.8 (1 standard drink = 0.6 oz p ure alcohol) q 2 months Comments No Sex and Gender Information Value Date Recorded Sex Assigned at Not on file 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 Interval development of grouped microcalcifications deep medial left breast, and further evaluation with spot magnification views needed. BI-RADS Category 0- Needs further workup. PLEASE NOTE: 1. In 10% of patients, cancers are not visible on mammography. 2. If a mass is felt, a physical examination, by a physician, is recommended. 3. If a suspicious lump is felt, biopsy should not be deferred because of a negative mammography. 4. ASSESSMENT BIRADS CATEGORIES: 0. Needs further work-up, 1. Negative, 2. Benign, 3. Probably benign. Needs short-term follow-up, 4. Possibly malignant, 5. Malignant. NOTE TO PHYSICIAN THIS PATIENT LISTED YOU THE PHYSICIAN OF CHOICE. YOU MAY OR MAY NOT HAVE ORDERED THIS EXAM. IF YOU NEED TO CALL HER, THE HOME PHONE IS LISTED ABOVE. THANK YOU. [id number] Narrative 04/07/2018 9:51 AM CDT Exam: MAMMO SCRN BILAT 3D MYAH W OR WO CAD Date/Time of Exam: 04/06/2018 3:16 PM Reason For Exam: See Diagnosis Visit for screening mammogram CAD, computer assisted detection was utilized. Digital technique was utilized with standard mammography views obtained. 3D tomosynthesis was also utilized. Comparisons: Previous study 12/12/2014. FINDINGS: Scattered fibroglandular tissue occupying 25-50% of the breast volume. On the right, there is a chronic stable benign nodular density in the deep medial aspect of the breast. On the left, there has been interval development of a new group of microcalcifications in the deep medial aspect of the breast, and further evaluation with spot magnification views needed. Procedure Note Maile Carrillo MD - 04/07/2018 Exam: MAMMO SCRN BILAT 3D MYAH W OR WO CAD Date/Time of Exam: 04/06/2018 3:16 PM Reason For Exam: See Diagnosis Visit for screening mammogram CAD, computer assisted detection was utilized. Digital technique was utilized with standard mammography views obtained. 3D tomosynthesis was also utilized. Comparisons: Previous study 12/12/2014. FINDINGS: Scattered fibroglandular tissue occupying 25-50% of the breast volume. On the right, there is a chronic stable benign nodular density in the deep medial aspect of the breast. On the left, there has been interval development of a new group of microcalcifications in the deep medial aspect of the breast, and further evaluation with spot magnification views needed. IMPRESSION: 1. Interval development of grouped microcalcifications deep medial left breast, and further evaluation with spot magnification views needed. BI-RADS Category 0- Needs further workup. PLEASE NOTE: 1. In 10% of patients, cancers are not visible on mammography. 2. If a mass is felt, a physical examination, by a physician, is recommended. 3. If a suspicious lump is felt, biopsy should not be deferred because of a negative mammography. 4. ASSESSMENT BIRADS CATEGORIES: 0. Needs further work-up, 1. Negative, 2. Benign, 3. Probably benign. Needs short-term follow-up, 4. Possibly malignant, 5. Malignant. NOTE TO PHYSICIAN THIS PATIENT LISTED YOU THE PHYSICIAN OF CHOICE. YOU MAY OR MAY NOT HAVE ORDERED THIS EXAM. IF YOU NEED TO CALL HER, THE HOME PHONE IS LISTED ABOVE. THANK YOU. [id number] Ciera Trejo APRN MAMMO ORDERABLES Final Result documented in this encounter Visit Diagnoses Diagnosis Visit for screening mammogram Other screening mammogram Visit for screening mammogram Other screening mammogram documented in this encounter Care Teams Forging Die Sinker Relationship Specialty Start Date End Date Virginia Ware MD [address] [place] [address] PCP - General Internal Medicine 02/09/17 documented as of this encounter
--- OUTSIDE RECORDS SUMMARY | 2025-03-06 09:56 | XMS_ITS | Encounter Summary ---
Author Organization [facility] Address [address] [place] [address] Care Team Providers Care Immigration Investigator Name Role Phone Virginia Ware MD Primary Care Provider [phone] Encounter Details Date Type Department Care Team (Latest Contact Info) Description 08/09/2004 Outpatient Historical [facility] Medicine [place] [address] [facility] [address] [place] [phone] Carlos Weir MD [address] [phone] ACUTE BRONCHITIS (Primary Dx) Social History Tobacco Use Types Packs/Day Years Used Date Smoking Tobacco: Never Assessed Comments Unknown Sex and Gender Information Value Date Recorded Sex Assigned at Not on file 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
--- OUTSIDE RECORDS SUMMARY | 2025-03-06 09:56 | XMS_ITS | Encounter Summary ---
Author Organization [facility] Address [address] [place] [address] Care Team Providers Care Senior Manager Name Role Phone Virginia Ware MD Primary Care Provider [phone] Encounter Details Date Type Department Care Team (Latest Contact Info) Description 05/08/1998 Outpatient Historical [facility] Yaron Benedict MD NO ADDRESS ON FILE Sprain of neck (Primary Dx) Social History Tobacco Use Types Packs/Day Years Used Date Smoking Tobacco: Never Assessed Comments Unknown Sex and Gender Information Value Date Recorded Sex Assigned at Not on file Legal Sex Female 4:49 AM FOUR H AGENT Gender Identity Not on file Sexual Orientation Not on file documented as of this encounter Plan of Treatment Not on file documented as of this encounter Visit Diagnoses Diagnosis Sprain of neck- Primary Neck sprain and strain documented in this encounter Care Teams Senior Manager Relationship Specialty Start Date End Date Virginia Ware MD [address] [facility] [place] [address] PCP - General Internal Medicine 02/09/17 documented as of this encounter
--- OUTSIDE RECORDS SUMMARY | 2025-03-06 09:56 | XMS_ITS | Encounter Summary ---
Author Organization [facility] Address [address] [place] [address] Care Team Providers Care Clinical Account Executive Name Role Phone Virginia Ware MD Primary Care Provider [phone] Encounter Details Date Type Department Care Team (Latest Contact Info) Description 04/08/2007 Outpatient Historical [facility] Medicine [address] [phone] Blanca Sabillon MD NO ADDRESS ON FILE Vaccine for Influenza (Primary Dx) Social History Tobacco Use Types Packs/Day Years Used Date Smoking Tobacco: Never Assessed Comments Unknown Sex and Gender Information Value Date Recorded Sex Assigned at Not on file 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
--- OUTSIDE RECORDS SUMMARY | 2025-03-06 09:56 | XMS_ITS | Encounter Summary ---
Author Organization [facility] Address [address] [place] [address] Care Team Providers Care Sheep And Wheat Farmer Name Role Phone Virginia Ware MD Primary Care Provider [phone] Encounter Details Date Type Department Care Team (Latest Contact Info) Description 09/19/2004 Outpatient Historical [facility] Medicine [address] [phone] Keri Hernandes, ALICIA NO ADDRESS ON FILE ACUTE SINUSITIS NOS (Primary Dx); ACUTE LARYNGOTRACH NO OBSTR Social History Tobacco Use Types Packs/Day Years Used Date Smoking Tobacco: Never Assessed Comments Unknown Sex and Gender Information Value Date Recorded Sex Assigned at Not on file 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
--- OUTSIDE RECORDS SUMMARY | 2025-03-06 09:56 | XMS_ITS | Encounter Summary ---
Author Organization [facility] Address [address] [place] [address] Care Team Providers Care Licensed Surveyor Name Role Phone Virginia Ware MD Primary Care Provider [phone] Reason for Referral * Outpatient Services (Routine) - Closed Specialty Diagnoses / Procedures Referred By Contac t Referred To Contact Radiology Diagnoses Other screening mammogram Procedures MAMMO DIGITAL SCREEN BILAT Javid Cortez MD Phone: tel: fax: [facility] [address] [place] [address] Phone: tel: fax: Referral ID Status Reason Start Date Expiration Date V isits Requested Visits Authorized [id number] Closed [facility] CTS to Schedule 12/11/2014 01/11/2016 1 1 Encounter Details Date Type Department Care Team (Late st Contact Info) Description 12/11/2014 Ancillary Orders [facility] Test Scheduling [address] [place] [phone] Javid Cortez MD [address] [place] [address] Other screening mammogram (Primary Dx) Social History Tobacco Use Types Packs/Day Years Used Date Smoking Tobacco: Never Smokeless Tobacco: Never Alcohol Use Standard Drinks/Week Comments Yes 0.8 (1 standard drink = 0.6 oz p ure alcohol) q 2 months Comments No Sex and Gender Information Value Date Recorded Sex Assigned at Not on file Legal Sex Female 4:49 AM 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 Annual follow-up mammogram recommended. BIRADS category - 2. Patient information entered into a reminder system with a target due date for the next mammogram. PLEASE NOTE: 1. In 10% of patients, [...] PHONE IS LISTED ABOVE. THANK YOU. Narrative 12/18/2014 8:25 PM CDT DIGITAL SCREENING MAMMOGRAPHY WITH CAD, 12/12/2014: Comparison made to previous outside study from [facility], [facility], dated 10/07/2011. There is chronic stable oval nodular density in the medial right breast consistent with a benign nodule. No new suspicious mass or microcalcifications. Small group of microcalcifications in the medial left breast appear benign and probably grossly stable from previous study. us Javid Cortez MD MAMMO ORDERABLES Final R esult documented in this encounter Visit Diagnoses Diagnosis Other screening mammogram- Primary Other screening mammogram documented in this encounter Care Teams Licensed Surveyor Relationship Specialty Start Date End Date Virginia Ware MD [address] [place] [phone] PCP - General Internal Medicine 02/09/17 documented as of this encounter
--- OUTSIDE RECORDS SUMMARY | 2025-03-06 09:56 | XMS_ITS | Encounter Summary ---
Author Organization [facility] Address [address] [place] [address] Care Team Providers Care Proof Inspector Name Role Phone Virginia Ware MD Primary Care Provider [phone] Encounter Details Date Type Department Care Team (Latest Contact Info) Description 05/25/2000 Outpatient Historical [facility] Medicine [place] [address] [facility] [address] [place] [phone] Carlos Weir MD [address] [phone] Acute bronchitis (Primary Dx); Acute pharyngitis Social History Tobacco Use Types Packs/Day Years Used Date Smoking Tobacco: Never Assessed Comments Unknown Sex and Gender Information Value Date Recorded Sex Assigned at Not on file Legal Sex Female 4:[address] Gender Identity Not on file Sexual Orientation Not on file documented as of this encounter Plan of Treatment Not on file documented as of this encounter Visit Diagnoses Diagnosis Acute bronchitis- Primary Acute pharyngitis documented in this encounter Care Teams Proof Inspector Relationship Specialty Start Date End Date Virginia Ware MD [address] [facility] [place] [phone] PCP - General Internal Medicine 02/09/17 documented as of this encounter
--- OUTSIDE RECORDS SUMMARY | 2025-03-06 09:56 | XMS_ITS | Encounter Summary ---
Author Organization [facility] Address [address] [place] [address] Care Team Providers Care Yeast Supervisor Name Role Phone Virginia Ware MD Primary Care Provider [phone] Encounter Details Date Type Department Care Team (Latest Contact Info) Description 11/23/2006 Outpatient Historical [facility] Medicine [address] [phone] Kirby Ramachandran DO NO ADDRESS ON FILE Vaccin for Disease NEC (Primary Dx) Social History Tobacco Use Types Packs/Day Years Used Date Smoking Tobacco: Never Assessed Comments Unknown Sex and Gender Information Value Date Recorded Sex Assigned at Not on file Legal Sex Female 4:49 AM 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
--- OUTSIDE RECORDS SUMMARY | 2025-03-06 09:56 | XMS_ITS | Encounter Summary ---
Author Organization [facility] Address [address] [place] [address] Care Team Providers Care Entertainment Lawyer Name Role Phone Virginia Ware MD Primary Care Provider [phone] Encounter Details Date Type Department Care Team (Latest Contact Info) Description 06/03/1999 Outpatient Historical [facility] Medicine [place] [address] [facility] [address] [place] [phone] Carlos Weir MD [address] [phone] Acute sinusitis, unspecified (Primary Dx) Social History Tobacco Use Types Packs/Day Years Used Date Smoking Tobacco: Never Assessed Comments Unknown Sex and Gender Information Value Date Recorded Sex Assigned at Not on file 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
--- OUTSIDE RECORDS SUMMARY | 2025-03-06 09:56 | XMS_ITS | Encounter Summary ---
Author Organization [facility] Address [address] [place] [address] Care Team Providers Care Weblogic Administrator Name Role Phone Virginia Ware MD Primary Care Provider [phone] Encounter Details Date Type Department Care Team (Latest Contact Info) Description 05/01/1998 Outpatient Historical [facility] Yaron Benedict MD NO ADDRESS ON FILE Sprain of neck (Primary Dx) Social History Tobacco Use Types Packs/Day Years Used Date Smoking Tobacco: Never Assessed Comments Unknown Sex and Gender Information Value Date Recorded Sex Assigned at Not on file Legal Sex Female 4:49 AM NURSE CASE MANAGEMENT Gender Identity Not on file Sexual Orientation Not on file documented as of this encounter Plan of Treatment Not on file documented as of this encounter Visit Diagnoses Diagnosis Sprain of neck- Primary Neck sprain and strain documented in this encounter Care Teams Weblogic Administrator Relationship Specialty Start Date End Date Virginia Ware MD [address] [facility] [place] [address] PCP - General Internal Medicine 02/09/17 documented as of this encounter
--- OUTSIDE RECORDS SUMMARY | 2025-03-06 09:56 | XMS_ITS | Encounter Summary ---
Author Organization [facility] Address [address] [facility] [place] [address] Care Team Providers Care Stitch Bonder Machine Operator Helper Name Role Phone Virginia Ware MD Primary Care Provider [phone] Reason for Visit * Reason Onset Date Comments Question 05/25/2020 Encounter Details Date Type Department Care Team ([facility] Contact Info) Description 05/25/2020 Telephone [facility] Pain Management [address] [place] [phone] [place] [address] [place] [phone] Question Social History Tobacco Use Types Packs/Day Years [...] declined 07/21/2019 How often do you attend yazidism or yarsani serv ices? Patient declined 07/21/2019 Do you belong to any clubs o r organizations such as yazidism groups, unions, fraternal or athletic groups, or [...] on file Legal Sex Female 4:49 AM SIGNAL INTELLIGENCE ANALYST Gender Identity Not on file Sexual [...] have Coronavirus / COVID-19? No / Unsure 05/24/2020 2:48 PM SIGNAL INTELLIGENCE ANALYST documented as of this encounter Miscellaneous Notes * Telephone Encounter - Marcella Larsen - 05/25/2020 4:07 PM CST Returning your call [phone] AL INTELLIGENCE ANALYST documented in this encounter Plan of Treatment Not on file documented as of this encounter Visit Diagnoses Not on filedocumented in this encounter Care Teams Stitch Bonder Machine Operator Helper Relationship Specialty Start Date End Date Virginia Ware MD [address] [place] [phone] PCP - General Internal Medicine 02/09/17 documented as of this encounter
--- OUTSIDE RECORDS SUMMARY | 2025-03-06 09:56 | XMS_ITS | Encounter Summary ---
Author Organization [facility] Address [address] [place] [address] Care Team Providers Care Marketing Writer Name Role Phone Virginia Ware MD Primary Care Provider [phone] Encounter Details Date Type Department Care Team (Latest Contact Info) Description 05/25/2006 Outpatient Historical [facility] [address] 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
--- OUTSIDE RECORDS SUMMARY | 2025-03-06 09:56 | XMS_ITS | Encounter Summary ---
Author Organization [facility] Address [address] [place] [address] Care Team Providers Care Spool Sorter Name Role Phone Virginia Ware MD Primary Care Provider [phone] Reason for Referral * Radiology Services (Routine) - Closed Specialty Diagnoses / Procedures Referred By Contac t Referred To Contact Radiology Diagnoses Abnormal mammogram Procedures MAMMO DIAG BILAT 3D MYAH W OR WO CAD MAMMO DIAGNOSTIC BILATERAL W OR WO CAD CHG DIAGNOSTIC MAMMOGRAPHY COMPUTER-AIDED DETCJ BI CHG DIGITAL BREAST TOMOSYNTHESIS BILATERAL Les Haines MD [address] [facility] [address] [place] [address] Phone: tel: fax: [facility] IMAGING SERVICES [facility] [address] [place] [address] Phone: tel: fax: Referral ID Status Reason Start Date Expiration Date V isits Requested Visits Authorized [id number] Closed [facility] CTS to Schedule 09/20/2020 10/21/2021 1 1 Encounter Details Date Type Department Care Team (Late st Contact Info) Description 09/24/2020 Ancillary Orders [facility] [address] [facility] [address] [place] [phone] Les Haines MD [address] [place] [phone] Abnormal mammogram Social History Tobacco Use Types [...] declined 07/21/2019 How often do you attend congregational or mu-ism serv ices? 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 No / Unsure 09/24/2020 10:01 AM CDT documented as of this encounter Plan of Treatment Not on file documented as of this encounter Results * MAMMO DIAG BILAT 3D MYAH W OR WO CAD (09/24/2020 10:15 AM CDT) Anatomical Region Laterality Modality Breast Bilateral Mammography 09/24/2020 10:1 5 AM CDT Impressions 09/24/2020 10:20 AM CDT IMPRESSION: Please see below. Exam: MAMMO DIAG BILAT 3D MYAH W OR WO CAD Date/Time of Exam: 09/24/2020 10:15 AM Reason For Exam: See Diagnosis. Diagnosis: Abnormal mammogram. Six month follow-up of calcifications in the left breast Technique: Diagnostic bilateral digital mammogram with CAD and 3-D tomographic images Comparison: A left mammogram on November 30, 2019 and a bilateral mammogram on April 25, 2019 Findings: The calcifications in the left breast are stable in appearance. No suspicious masses, suspicious clustered microcalcifications or suspicious architectural distortion are seen. IMPRESSION: 1. Stable benign-appearing calcifications in the left breast with no mammographic evidence of malignancy. 2. A screening mammogram in one year is recommended. 3. Category two 4. CAD and 3-D tomographic images Patient information entered into a reminder system with a target due date for the next mammogram (4992X) PLEASE NOTE: 1. In 10% of patients, [...] follow-up suggested, 4.Suspicious, 5. Highly Suggestive of Malignancy, 6. Known Biopsy Proven Malignancy. NOTE TO PHYSICIAN THIS PATIENT LISTED YOU THE PHYSICIAN OF CHOICE. YOU MAY OR MAY NOT HAVE ORDERED THIS EXAM. IF YOU NEED TO CALL HER, THE HOME PHONE IS LISTED ABOVE. THANK YOU. Narrative Procedure Note Kailee Ponce MD - 09/24/2020 IMPRESSION: Please see below. Exam: MAMMO DIAG BILAT 3D MYAH W OR WO CAD Date/Time of Exam: 09/24/2020 10:15 AM Reason For Exam: See Diagnosis. Diagnosis: Abnormal mammogram. Six month follow-up of calcifications in the left breast Technique: Diagnostic bilateral digital mammogram with CAD and 3-D tomographic images Comparison: A left mammogram on November 30, 2019 and a bilateral mammogram on April 25, 2019 Findings: The calcifications in the left breast are stable in appearance. No suspicious masses, suspicious clustered microcalcifications or suspicious architectural distortion are seen. IMPRESSION: 1. Stable benign-appearing calcifications in the left breast with no mammographic evidence of malignancy. 2. A screening mammogram in one year is recommended. 3. Category two 4. CAD and 3-D tomographic images Patient information entered into a reminder system with a target due date for the next mammogram (2643B) PLEASE NOTE: 1. In 10% of patients, [...] follow-up suggested, 4.Suspicious, 5. Highly Suggestive of Malignancy, 6. Known Biopsy Proven Malignancy. NOTE TO PHYSICIAN THIS PATIENT LISTED [...] unspecified documented in this encounter Care Teams Spool Sorter Relationship Specialty Start Date End Date Virginia Ware MD [address] [place] [phone] PCP - General Internal Medicine 02/09/17 documented as of this encounter
--- OUTSIDE RECORDS SUMMARY | 2025-03-06 09:56 | XMS_ITS | Encounter Summary ---
Author Organization [facility] Address [address] [place] [address] Care Team Providers Care Well Services Operator Name Role Phone Virginia Ware MD Primary Care Provider [phone] Encounter Details Date Type Department Care Team (Late st Contact Info) Description 12/10/2011 Ancillary Orders [facility] [address] [place] [phone] Jaswant Tucker, NO ADDRESS ON FILE Swelling of joint of right ankle or foot Social History Tobacco Use Types Packs/Day Years Used Date Smoking Tobacco: Never Alcohol Use Standard Drinks/Week Comments Not Asked 0 (1 standard drink = 0.6 oz pur e alcohol) Comments No Sex and Gender Information Value Date Recorded Sex Assigned at Not on file Legal Sex Female 4:49 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 JOB #[id number] Narrative 12/10/2011 2:31 PM CDT THREE VIEWS RIGHT FOOT 12/10/2011: CLINICAL HISTORY: Swelling of ankle and foot. There is degenerative change in the hallux valgus deformity. There is no evidence of fracture or dislocation. No acute bony abnormalities are seen. Procedure Note Kailee Ponce MD - 12/10/2011 THREE VIEWS RIGHT FOOT 12/10/2011: CLINICAL HISTORY: Swelling of ankle and foot. There is degenerative change in the hallux valgus deformity. There is noevidence of fracture or dislocation. No acute bony abnormalities are seen. IMPRESSION: 1. Degenerative narrowing at the first MTP joint with the hallux valgusdeformity with no acute abnormalities seen. JOB #[id number] Jaswant Tucker DO DIAGNOSTIC IMAGING ORDERAB LES Final Result documented in this encounter Visit Diagnoses Diagnosis Swelling of joint of right ankle or foot Effusion of ankle and foot joint documented in this encounter Care Teams Well Services Operator Relationship Specialty Start Date End Date Virginia Ware MD [address] [place] [address] PCP - General Internal Medicine 02/09/17 documented as of this encounter
--- OUTSIDE RECORDS SUMMARY | 2025-03-06 09:56 | XMS_ITS | Encounter Summary ---
Author Organization [facility] Address [address] [place] [address] Care Team Providers Care Boat Diesel Motor Mechanic Name Role Phone Virginia Ware MD Primary Care Provider [phone] Encounter Details Date Type Department Care Team (Late st Contact Info) Description 12/11/2014 Ancillary Orders [facility] Mammography [address] [place] [address] Javid Cortez MD [address] [place] [address] Social History Tobacco Use Types Packs/Day Years Used Date Smoking Tobacco: Never Smokeless Tobacco: Never Alcohol Use Standard Drinks/Week Comments Yes 0.8 (1 standard drink = 0.6 oz p ure alcohol) q 2 months Comments No Sex and Gender Information Value Date Recorded Sex Assigned at Not on file 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
--- OUTSIDE RECORDS SUMMARY | 2025-03-06 09:56 | XMS_ITS | Encounter Summary ---
Author Organization [facility] Address [address] [place] [address] Care Team Providers Care General Car Supervisor Yard Name Role Phone Virginia Ware MD Primary Care Provider [phone] Encounter Details Date Type Department Care Team (Latest Contact Info) Description 10/26/2018 [facility] [address] [facility] [address] [place] [phone] Les Haines MD [address] [facility] [address] [place] [phone] Vitamin D insufficiency; Asymptomatic age-related postmenopausal state; Osteopenia of neck of right femur; Abnormal mammogram Social History Tobacco Use Types Packs/Day Years Used Date Smoking Tobacco: Never Smokeless Tobacco: Never Alcohol Use Standard Drinks/Week Comments Yes 0.8 (1 standard drink = 0.6 oz p ure alcohol) q 2 months Comments No Sex and Gender Information Value Date Recorded Sex Assigned at Not on file Legal Sex Female 4:49 AM 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 OPERATOR HELPER Gender Identity Not on file Sexual Orientation Not on file Occupation Industry Job Start Date Job End Date Not on file Not on file Not on file Not on file Not on file Not on file Not on file Not on file documented as of this encounter Plan of Treatment Not on file documented as of this encounter Results * XR DEXA BONE DENSITY AXIAL 1 OR MORE SITES (10/26/2018 1:24 PM CDT) T-SCORE FEMUR -2.30 -1.0 - 1.0 EXTER NAL RADIOLOGY T-SCORE SPINE -0.70 -1.0 - 1.0 EXTER NAL RADIOLOGY T-SCORE FEMORAL NECK (RIGHT) -1.50 -1.0 - 1.0 EXTERNAL RADIOLOGY T-SCORE WRIST (LEFT) 0.00 -1.0 - 1.0 EXTERNAL RADIOLOGY Anatomical Region Laterality Modality Computed Radiogr aphy us Les Haines MD DIAGNOSTIC IMAGING [facility]ison [place] Final Result documented in this encounter Visit Diagnoses Diagnosis Vitamin D insufficiency Unspecified vitamin D deficiency Asymptomatic age-related postmenopausal state Osteopenia of neck of right femur Abnormal mammogram Abnormal mammogram, unspecified documented in this encounter Care Teams General Car Supervisor Yard Relationship Specialty Start Date End Date Virginia Ware MD [address] [place] [address] PCP - General Internal Medicine 02/09/17 documented as of this encounter
--- OUTSIDE RECORDS SUMMARY | 2025-03-06 09:56 | XMS_ITS | Encounter Summary ---
Author Organization [facility] Address [address] [place] [address] Care Team Providers Care Vendor Representatives Name Role Phone Virginia Ware MD Primary Care Provider [phone] Encounter Details Date Type Department Care Team (Latest Contact Info) Description 04/22/1999 Outpatient Historical [facility] Medicine [address] [phone] Kirby Ramachandran, NO ADDRESS ON FILE Need vaccination-viral disease (Primary Dx) Social History Tobacco Use Types Packs/Day Years Used Date Smoking Tobacco: Never Assessed Comments Unknown Sex and Gender Information Value Date Recorded Sex Assigned at Not on file Legal Sex Female 4:49 AM SITE PLANNER Gender Identity Not on file Sexual Orientation Not on file documented as of this encounter Plan of Treatment Not on file documented as of this encounter Visit Diagnoses Diagnosis Need vaccination-viral disease- Primary Need for prophylactic vaccination and inoculation against other viral diseases documented in this encounter Care Teams Vendor Representatives Relationship Specialty Start Date End Date Virginia Ware MD [address] [facility] [place] [address] PCP - General Internal Medicine 02/09/17 documented as of this encounter
--- OUTSIDE RECORDS SUMMARY | 2025-03-06 09:56 | XMS_ITS | Encounter Summary ---
Author Organization [facility] Address [address] [place] [address] Care Team Providers Care Machine Try Out Setter Name Role Phone Virginia Ware MD Primary Care Provider [phone] Encounter Details Date Type Department Care Team (Latest Contact Info) Description 08/16/1999 Outpatient Historical [facility] Medicine [address] [phone] Kirby Ramachandran DO NO ADDRESS ON FILE Bronchitis, not specified as acute or chronic (Primary Dx); Acute pharyngitis Social History Tobacco Use Types Packs/Day Years Used Date Smoking Tobacco: Never Assessed Comments Unknown Sex and Gender Information Value Date Recorded Sex Assigned at Not on file Legal Sex Female 4:49 AM SVP PROGRAMMATIC TV Gender Identity Not on file Sexual Orientation Not on file documented as of this encounter Plan of Treatment Not on file documented as of this encounter Visit Diagnoses Diagnosis Bronchitis, not specified as acute or chronic- Primary Acute pharyngitis documented in this encounter Care Teams Machine Try Out Setter Relationship Specialty Start Date End Date Virginia Ware MD [address] [place] [address] PCP - General Internal Medicine 02/09/17 documented as of this encounter
--- OUTSIDE RECORDS SUMMARY | 2025-03-06 09:56 | XMS_ITS | Encounter Summary ---
Author Organization [facility] Address [address] [place] [address] Care Team Providers Care Residential Case Manager Name Role Phone Virginia Ware MD Primary Care Provider [phone] Encounter Details Date Type Department Care Team (Latest Contact Info) Description 08/14/[address]patient [address] [facility] Medicine [place] [address] [facility] [address] [place] [phone] Carlos Weir MD [address] [phone] Acute sinusitis, unspecified (Primary Dx) Social History Tobacco Use Types Packs/Day Years Used Date Smoking Tobacco: Never Assessed Comments Unknown Sex and Gender Information Value Date Recorded Sex Assigned at Not on file Legal Sex Female 4:49 AM SAMPLE MAKER HAND Gender Identity Not on file Sexual Orientation Not on file documented as of this encounter Plan of Treatment Not on file documented as of this encounter Visit Diagnoses Diagnosis Acute sinusitis, unspecified- Primary documented in this encounter Care Teams Residential Case Manager Relationship Specialty Start Date End Date Virginia Ware MD [address] [facility] [place] [phone] PCP - General Internal Medicine 02/09/17 documented as of this encounter
--- OUTSIDE RECORDS SUMMARY | 2025-03-06 09:56 | XMS_ITS | Encounter Summary ---
Author Organization [facility] Address [address] [place] [address] Care Team Providers Care Mobile Designer Name Role Phone Virginia Ware MD Primary Care Provider [phone] Encounter Details Date Type Department Care Team (Latest Contact Info) Description 05/22/2016 Ancillary Orders [facility] Orthopedics [facility] [address] [place] [address] Ernesto Shaikh MD [address] [place] [address] Chronic midline low back pain without sciatica Social History Tobacco Use Types Packs/Day Years Used Date Smoking Tobacco: Never Smokeless Tobacco: Never Alcohol Use Standard Drinks/Week Comments Yes 0.8 (1 standard drink = 0.6 oz p ure alcohol) q 2 months Comments No Sex and Gender Information Value Date Recorded Sex Assigned at Not on file Legal Sex Female 4:49 AM DEBT COLLECTOR Gender Identity Not on file Sexual Orientation Not on file Occupation Industry Job Start Date Job End Date Not on file Not on file Not on file Not on file Not on file Not on file Not on file Not on file documented as of this encounter Plan of Treatment Not on file documented as of this encounter Results * XR LUMBAR SPINE 2 OR 3 VW (05/22/2016 10:55 AM DEBT COLLECTOR) Anatomical Region Laterality Modality Spine Computed Radiogr aphy Impressions 06/10/2016 1:49 PM DEBT COLLECTOR : Degenerative disc disease lower lumbar spine as noted with a previous compression fracture and vertebroplasty of T12. Narrative 06/10/2016 1:49 PM DEBT COLLECTOR LUMBAR SPINE 05/22/2016: X-rays of the lumbar spine which include AP and lateral views indicate an old compression fracture at T12 where a vertebroplasty has been done. There is no new fracture. There is no spondylolisthesis. There is severe degenerative disc disease at L4-5 and moderate change at L5-S1 with mild change otherwise. Ernesto Shaikh MD DIAGNOSTIC IMAGING ORDERABLES Final Result documented in this encounter Visit Diagnoses Diagnosis Chronic midline low back pain without sciatica documented in this encounter Care Teams Mobile Designer Relationship Specialty Start Date End Date Virginia Ware MD [address] [place] [phone] PCP - General Internal Medicine 02/09/17 documented as of this encounter
--- OUTSIDE RECORDS SUMMARY | 2025-03-06 09:56 | XMS_ITS | Encounter Summary ---
Author Organization [facility] Address [address] [place] [address] Care Team Providers Care Ux Manager Name Role Phone Virginia Ware MD Primary Care Provider Encounter Details Date Type Department Care Team (Latest Contact Info) Description 07/06/1998 Outpatient Historical [facility] Medicine [place] [address] [facility] [address] [place] [phone] Carlos Weir MD [address] [phone] Acute sinusitis, unspecified (Primary Dx) Social History Tobacco Use Types Packs/Day Years Used Date Smoking Tobacco: Never Assessed Comments Unknown Sex and Gender Information Value Date Recorded Sex Assigned at Not on file Legal Sex Female 4:49 AM TAR POT MAN Gender Identity Not on file Sexual Orientation Not on file documented as of this encounter Plan of Treatment Not on file documented as of this encounter Visit Diagnoses Diagnosis Acute sinusitis, unspecified- Primary documented in this encounter Care Teams Ux Manager Relationship Specialty Start Date End Date Virginia Ware MD [address] [facility] [place] [phone] PCP - General Internal Medicine 02/09/17 documented as of this encounter
--- OUTSIDE RECORDS SUMMARY | 2025-03-06 09:56 | XMS_ITS | Encounter Summary ---
Author Organization [facility] Address [address] [facility] [place] [address] Care Team Providers Care Principal Web Developer Name Role Phone Virginia Ware MD Primary Care Provider [phone] Encounter Details Date Type Department Care Team ([facility] Contact Info) Description 06/11/2017 Chart Note [facility] (First floor of [facility]) [address] [place] [phone] Angelique Foss, Physical Therapist Social History Tobacco Use Types Packs/Day Years Used Date Smoking Tobacco: Never Smokeless Tobacco: Never Alcohol Use Standard Drinks/Week Comments Yes 0.8 (1 standard drink = 0.6 oz p ure alcohol) q 2 months Comments No Sex and Gender Information Value Date Recorded Sex Assigned at Not on file Legal Sex Female 4:49 AM SEAFOOD CLERK Gender Identity Not on file Sexual [...] on filedocumented in this encounter Care Teams Principal Web Developer Relationship Specialty Start Date End Date Virginia Ware MD [address] [place] [address] PCP - General Internal Medicine 02/09/17 documented as of this encounter
--- OUTSIDE RECORDS SUMMARY | 2025-03-06 09:57 | XMS_ITS | Clinical Summary ---
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 Active biotin 5,000 mcg Tablet, Rapid Dissolve Take by mouth. Active multivitamin (DAILY-ZEFERINO) tablet Take 1 Tablet by mouth daily. Active SUMAtriptan (IMITREX) 100 mg tablet Take 100 mg by mouth see administration instructions may repeat in 2 hours; max dose 200mg in 24 hours . Active acetaminophen (TYLENOL EXTRA STRENGTH) 500 mg tablet Take 500 mg by mouth every 6 hours as needed for Pain, Moderate. Active ubidecarenone/v itamin E mixed (COQ10 SG 100 ORAL) Take by mouth. Activ e Miscellaneous Medical Supply shingarix vaccine. 1 Each 10/23/19 19 Active docusate sodium (COLACE) 100 mg capsule Take 100 mg by mouth daily at bedtime. Active fexofenadine (ISIS ALLERGY) 60 mg tablet Take 60 mg by mouth daily. Active vitamin E 100 unit Capsule Take 180 Units by mouth daily. Active vit B cmplx 3-FA-Vit C-Biotin (RENAVITE-RX RX) 1-60-300 mg-mg-mcg Tablet Take 1 Tablet by mouth daily. Active cyanocobalamin 1,000 mcg Tablet Take 1,500 mcg by mouth daily. Active OTHERIndication s:estroven for hot flashes Provider please include Medication name, dose, route and frequency . Active diphenhydrAMINE (BENADRYL) 25 mg tablet Take 50 mg by mouth every 6 hours as needed for Allergies. Active triamcinolone acetonide (KENALOG) 0.1 % Ointment Apply to affected area 2 times daily. 30 Gram 1 05/03/20 19 Active ondansetron (Zofran ODT) 4 mg Tablet, Rapid Dissolve Place 1 Tablet (4 mg) under tongue every 6 hours as needed for Nausea/Emesis. 10 Tablet 08/11/19 20 Active omeprazole (PriLOSEC) 40 mg Capsule, Delayed Release(E.C.)In dications:Arthr algia, unspecified joint,SOB (shortness of breath),Elevate d glucose Take 1 pill daily 90 Capsule 1 08/08/19 21 Active calcium carb and citrate-vitD3 (Citracal-D3 Slow Release) 600 mg calcium- 500 unit Tablet Sustained Release Take 1 Tablet by mouth 2 times daily. 60 Tablet 11 08/28/19 21 Active estradioL (Estrace) 0.01% (0.1 mg/g) vaginal cream Insert vaginally daily. 42.5 Gram 6 08/30/19 21 Active DULoxetine (Cymbalta) 30 mg Capsule, Delayed Release(E.C.) Take 1 Capsule (30 mg) by mouth daily. 30 Capsule 5 09/08/19 21 Active celecoxib (CeleBREX) 200 mg capsule TAKE 1 CAPSULE EVERY DAY 90 Capsule 1 12/20/19 21 Active Active Problems Problem Noted Date Diagnosed Date Pelvic mass 08/04/2019 Urge incontinence 02/16/2019 Status post total knee replacement using cement, right 01/10/2019 Vaginal atrophy 11/11/2018 Menopause 10/15/2018 Osteopenia of neck of right femur 10/15/2018 Abnormal mammogram 10/15/2018 Status post total knee replacement using cement, left 09/24/2018 Fall 09/05/2018 Edema of left lower extremity 09/05/2018 Lip lesion 09/05/2018 Ovarian cyst, right 09/05/2018 Closed compression fracture of L1 vertebra 09/05 Acute midline low back pain without sciatica Urinary incontinence 03/25/2017 Acute blood loss as cause of postoperative anemi a 03/17/2017 Status post total replacement of left hip 2016 Essential hypertension 03/16/2017 Constipation, unspecified 03/16/2017 Normocytic anemia 03/16/2017 Acute pain of left knee 03/16/2017 Routine general medical exam ination at a health care facility 02/25/2017 On hormone replacement therapy 12/05/2015 Reactive depression (situational) 10/26/2015 Benign hypertension 10/26/2015 Acute postoperative pain of left hip 10/25/2015 Primary osteoarthritis of right knee 10/25/2015 Primary osteoarthritis of left knee 10/25/2015 Compression fracture of twel fth thoracic vertebra with delayed healing 09/26/2015 Low back pain with sciatica 09/25/2015 Enthesopathy of hip region 07/20/2015 Mixed hyperlipidemia 04/10/2015 Family history of thyroid disease 04/10/2015 Vitamin D insufficiency 04/10/2015 Primary osteoarthritis of left hip 10/19/2013 LBBB (left bundle branch block) 09/13/2013 Healthcare maintenance 11/17/2012 Migraine headaches Osteoarthritis GERD (gastroesophageal reflux disease) Allergic rhinitis Osteopenia Atrophic vaginitis Post menopausal syndrome Urge and stress incontinence Diverticulosis Resolved Problems Problem Noted Date Diagnosed Date Resolved Date LV dysfunction 10/13/2013 02/19/2016 Unstable angina 09/13/2013 01/16/2014 Immunizations Immunization Administration Dates Next Due (Osper)(12 YR UP) COVID-19 VACCINE - EMERGENCY USE AUTHORIZATION, MRNA, [id number](PF) 30 MCG/0.3 ML IM SUSP 08/01/2020,07/11/2020 (PNEUMOVAX 23)(50 YRS UP) PN EUMOCOCCAL POLYSACCHARIDE (PPV23) 0.5 ML, IM 10/24/2016 (PREVNAR 13)(6 WKS UP) PNEUM OCOCCAL CONJUGATE (PCV13) 0.5 ML, IM 04/10/2015 INFLUENZA VACCINE QUADRIVALE NT 3 YR UP PF IM 03/29/2017 Influenza Seasonal Unspecifi ed Formulation IM 04/06/2014,03/23/2013,04/11/2008,04/08,03/18/2005,05/11/2001,04/22/1999 Influenza Vaccine High Dose 65+ Yrs IM 1 ,03/03/2018,03/17/2016,04/10 Influenza Vaccine Nasal 02/22/2020 Pneumococcal conjugate, unsp ecified formulation 03/23/2013 Zoster Vaccine Live SQ 10/20/2006 Family History Medical History Relation Name Comments [...] declined 07/21/2019 How often do you attend congregation or bahai serv ices? 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 Respiratory Rate 18 09/14/2020 8:31 AM CDT Oxygen Saturation 97% 09/14/2020 8:31 AM CDT Inhaled Oxygen Concentration - - Weight 78.6 kg (173 lb 3.2 oz) 09/14/2020 8:31 A M CDT Height 170.2 cm (5' 7 ) 09/14/2020 8:31 AM CDT Body Mass Index 27.13 09/14/2020 8:31 AM CDT Plan of Treatment Health Maintenance Due Date Last Done Comments DTAP/TDAP/TD VACCINES (1 - Tdap) 1960 ZOSTER VACCINE (2 of 3) 12/15/2006 10/20/2006 RSV VACCINE (60+ or ) (1 - 1-dose 75+ series) 2016 Traditional Medicare (ACO) A nnual Wellness Visit 03/31/2020 03/30/2019, 03/03/2018, 02/25/2017, Additional history exists OSTEOPOROSIS SCREENING 10/27/2023 9, 10/31/2015, 10/31/2015, Additional history exists INFLUENZA VACCINE (#1) 2025 0, 04/12/2019, 03/03/2018, Additional history exists COVID-19 Vaccine (2024-2 6 season) 2025 08/01/2020, 07/11/2020 FIT/FOBT Q 1 year Discontinued 02/04/1999 COLORECTAL SCREENING Discontinued 02/01/2010, 10/21/19 Colorectal Cancer Screening Discontinued FIT-DNA Q 3 years Discontinued 11/14/2014 PNEUMOCOCCAL VACCINE 50+ YEARS Completed 0 10/24/2016, 04/10/2015, 03/23/2013 Flex Sig/CT Colonography Q 5 years Discontinued Medical Devices Implanted Type Area X Ray Examiner Of Aircraft Device Identifier Shelf Expiration Date Model / Serial / Lot Cement Smartset Hv 40gr 3092-040 - [id number] Implanted:Qty : 1 on 06/29/2018 by Jez Carcamo MD at [facility] Cement Left: Knee [employer] 02/19/2019 [id number] / / [id number] Cement Smartset Hv 40gr 3092-040 - [id number] Implanted:Qty : 1 on 11/23/2018 by Jez Carcamo MD at [facility] Cement Right: Knee [employer] 04/21/2020 [id number] / / [id number] Shell G7 Pps Lmtd Hl 52mm [id number] - [id number] Implanted:Qty : 1 on 03/10/2017 by Jez Carcamo MD at [facility] Hip Left: Hip [employer] 01/30/2027 [id number] / / [id number] Liner Arcomxl Neut 36mm Dayna [id number] - [id number] Implanted:Qty : 1 on 03/10/2017 by Jez Carcamo MD at [facility] Hip Left: Hip [employer] 12/08/2021 [id number] / / [id number] Head Fem Biolox Option 36mm 650-1057 - [id number] Implanted:Qty : 1 on 03/10/2017 by Jez Carcamo MD at [facility] Hip Left: Hip [employer] 08/06/2026 650-1057 / / [id number] Slv Biolox Delta Optn Type 1 617-0524 - [id number] Implanted:Qty : 1 on 03/10/2017 by Jez Carcamo MD at [facility] Hip Left: Hip [employer] 11/27/2026 650-1067 / / [id number] Stem Fem Echo Bimetric Por Lat [id number] - [id number] Implanted:Qty : 1 on 03/10/2017 by Jez Carcamo MD at [facility] Hip Left: Hip [employer] 12/26/2026 [id number] / / [id number] Comp Fem Sigma Ps Brass Sorter Sz3 1960-40-300 - [id number] Implanted:Qty : 1 on 06/29/2018 by Jez Carcamo MD at [facility] Knee Left: Knee [employer] 02/20/2028 [id number] / / [id number] Comp Tib Sigma Mbt Keel Sz3 129-130 - [id number] Implanted:Qty : 1 on 06/29/2018 by Jez Carcamo MD at [facility] Knee Left: Knee [employer] 11/19/2022 1294-33-130 / / [id number] Patella Dome 3peg 35mm - [id number] Implanted:Qty : 1 on 06/29/2018 by Jez Carcamo MD at [facility] Knee Left: Patella [employer] 07/22/2022 96-1 / / [id number] Insert Tib Sigma Rps Sz3 96 - [id number] Implanted:Qty : 1 on 06/29/2018 by Jez Carcamo MD at [facility] Knee Left: Knee [employer] 11/19/2022 96-2 / / [id number] Comp Tib Sigma Mbt Keel Sz3 1294-33-130 - [id number] Implanted:Qty : 1 on 11/23/2018 by Jez Carcamo MD at [facility] Knee Right: Knee [employer] 09/20/2023 1294-33-130 / / [id number] Comp Fem Sigma Ps Brass Sorter Sz3 - [id number] Implanted:Qty : 1 on 11/23/2018 by Jez Carcamo MD at [facility] Knee Right: Knee [employer] 08/19/2028300 / / [id number] Patella Dome 3peg 35mm - [id number] Implanted:Qty : 1 on 11/23/2018 by Jez Carcamo MD at [facility] Knee Right: Knee [employer] 05/21/2023 96-1 / / [id number] Insert Tib Sigma Rps Sz3 - [id number] Implanted:Qty : 1 on 11/23/2018 by Jez Carcamo MD at [facility] Knee Right: Knee [employer] 07/22/20231 / / [id number] Cable W/Crimp Cocr 1.7 X 750mm 611.105.01s - [id number] Implanted:Qty : 1 on 03/10/2017 by Jez Carcamo MD at [facility] Other Left: Hip [employer] 08/19/2021 611.105.0 1S / / [id number] Screw G7 Lp 6.5x25mm [id number] - [id number] Implanted:Qty : 1 on 03/10/2017 by Jez Carcamo MD at [facility] Screw Left: Hip [employer] 12/24/2026 [id number] / / [id number] Screw G7 Lp 6.5x30mm [id number] - [id number] Implanted:Qty : 1 on 03/10/2017 by Jez Carcamo MD at [facility] Screw Left: Hip [employer] 12/07/2026 [id number] / / [id number] Procedures Procedure Name Priority Date/Time Associated Diagnosis Comments XR DEXA BONE DENSITY AXIAL 1 OR MORE SITES Routine 10/26/2018 1:24 PM CDT Vitamin D insufficiency Asymptomatic age-related postmenopausal state Osteopenia of neck of right femur Abnormal mammogram COLON CANCER SCREEN, STOOL DNA Routine 11/14/2014 6:00 PM CDT Atrophic vaginitis Post menopausal syndrome Healthcare maintenance Osteoporosis Colon cancer screening ENDOSCOPY, COLON, SCREENING Routine 02/01/2010 from Last 3 Months or Most Recently [...] aphy us Les Haines MD DIAGNOSTIC IMAGING [facility]ORD[facility] Final Result * COLON CANCER SCREEN, STOOL DNA (11/14/2014 6:00 PM CDT) COLOGUARD RESULT Negative COLOGUARD COMMENT Stool specimen (specimen) 11/14/2014 6:00 PM CDT us Javid Cortez MD BODY FLUIDS AND STOOLS E dited Result - Final * ENDOSCOPY, COLON, SCREENING (02/01/2010) us Abstract Spg Provider GI PROCEDURE ORDERABLES Ed ited from Last 3 Months or Most Recently Relevant to Health Maintenance Insurance MEDICARE PART A AND B [employer] MEDICARE SUPPLEMENT MEDICARE PART A AND B MEDICARE PART A AND B Advance Directives For more information, please contact: [phone] * Full Code (Latest Code Status on File) Date Activated Date Inactivated Comments 08/16/2020 9:08 AM 08/16/2020 12:41 PM * Full Code Date Activated Date Inactivated Comments 08/11/2019 6:28 AM 08/11/2019 12:29 PM * Full Code Date Activated Date Inactivated Comments 03/07/2019 1:35 PM 03/07/2019 4:30 PM * Full Code Date Activated Date Inactivated Comments 11/23/2018 9:45 AM 11/26/2018 2:23 PM * Full Code Date Activated Date Inactivated Comments 11/23/2018 6:12 AM 11/23/2018 9:45 AM Care Teams Licensed Nuclear Operator Relationship Specialty Start Date End Date Virginia Ware MD [address] [place] [address] PCP - General Internal Medicine 02/09/17
[2025-03-06 10:01] LABS: Hematocrit 44.5 % (36-47); Hemoglobin 14.00 g/dL (11.27-16.99); Mean Corpuscular HGB Conc 31.5 g/dL (30-55); Mean Corpuscular Hemoglobin 32.2 pg (27-33); Mean Corpuscular Volume 102.3 fl (85-98); Nucleated Red Blood Cells % 0 %; Platelet Count 172 10^3/cmm (157-399); Red Blood Count 4.35 10^6/uL (3.85-5.65); White Blood Count 11.05 10^3/uL (3.29-11.43)
[2025-03-06 10:43] LABS: Lactic Sepsis W/Reflex 1.2 mmol/L (0.5-2.2)
[2025-03-06 10:44] LABS: Troponin(5th) Baseline 17 ng/L (0-10)
[2025-03-06 10:54] LABS: NT Pro B Type Natriuretic Pept 112 pg/mL (0-450); Procalcitonin 0.04 ng/mL (0-0.5)
[2025-03-06 11:06] LABS: Respiratory Syncytial Virus Ce NEGATIVE (Negative); SARS-CoV-2 PCR NEGATIVE (Negative)
[2025-03-06 11:06] LABS: Alanine Aminotransferase 15 U/L (0-33); Albumin Level 4.3 g/dL (3.5-5.2); Alkaline Phosphatase 110 U/L (35-105); Anion Gap 15.1 (5-19); Aspartate Amino Transferase 24 U/L (0-32); Blood Urea Nitrogen 24 mg/dL (8-23); Calcium 9.4 mg/dL (8.5-10.5); Carbon Dioxide 30 mmol/L (22-29); Chloride 102 mmol/L (98-107); Creatinine Clr Calc Pharmacy 54.1744; Globulin 2.8 g/dL (1.3-4.6); Glucose 118 mg/dL (65-115); Osmolality Calculated 301 mOsm/kg (285-295); Potassium 4.1 mmol/L (3.5-5.1); Sodium 143 mmol/L (136-145); Total Protein 7.1 g/dL (6.6-8.7)
--- NOTE | 2025-03-06 11:12 | CT_ITS ---
WS: [id number] CT chest w con* [id number] HISTORY: sob, hypoxia TECHNIQUE: Axial imaging performed through the thorax. Coronal and sagittal reformats are submitted. All CT scans at [facility] use at least one of these dose optimization techniques: automated exposure control; mA and/or kV adjustment per patient size (includes targeted exams where dose is matched to clinical indication); or iterative reconstruction. CONTRAST: Omnipaque 350; 100 mL IV. DLP: 326.53 mGy.cm COMPARISON: 02/12/2023 Lungs and central airway: Lung volumes are markedly decreased. Good opacification of the central pulmonary artery. Although limited by the lack of inspiration no emboli identified centrally into the segmental branches. Mildly ectatic thoracic aorta with atherosclerosis. No aneurysm. No mediastinal or h ilar adenopathy. No pneumonia or pulmonary mass. Compressive atelectasis at the lung bases. Pleura: Normal. No pleural effusion. Heart and pericardium: Normal size heart with no pericardial effusion. Mediastinum and fabio: No mediastinum or hilar adenopathy. Vessels: Atherosclerosis and ectatic aorta. Chest wall and lower neck: RIGHT thyroid nodule with peripheral calcification. Upper abdomen: Numerous low-attenuation masses in the liver. These have been previously described consistent with cysts. Splenic granulomata. Stomach is markedly distended with air. No adrenal mass. Osseous structures: Osteopenia. Prior vertebroplasty T12. Proximal RIGHT humerus enchondroma. CT/CT chest w con* [id number] IMPRESSION: 1. Marked decreased lung volumes. In part this is probably due to marked air d istention of the stomach limiting expansion of the LEFT lung. 2. Compressive atelectasis at the lung bases from poor inspiratory effort. 3. No pulmonary embolism identified. 4. No pneumonia. 5. Hepatic cysts.
[2025-03-06] MEDS: iohexol 350 mg/mL 500 mL Btl (per mL) IV (11:31)
--- NOTE | 2025-03-06 11:38 | ECG_ITS ---
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 Measurements Intervals Rescue Rate: 103 P: 60 MA: 182 QRS: -47 QRSD: 141 T: 101 QT: 358 QTc: 470 Interpretive Statements SINUS TACHYCARDIA LEFT AXIS DEVIATION [QRS AXIS < -30] LEFT BUNDLE BRANCH BLOCK [120+ ms QRS DURATION, 80+ ms Q/S IN V1/V2, 85+ ms R IN I/aVL/V5/V6] Compared to ECG 03/06/2025 09:34:58 No significant changes Electronically Signed On 03-08-2025 23:41:03 CDT by David Petty M.D. [id number]
[2025-03-06 12:17] LABS: Troponin 5 2HR 14.40 ng/L (0-10)
[2025-03-06 12:19] LABS: Troponin 5 2HR Delta -2.60 ABS# (0-10)
[2025-03-06] MEDS: methylPREDNISolone sod succ 125 mg/2 mL INJ IVP (14:13)
--- NOTE | 2025-03-06 14:35 | P.HP_ITS ---
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 She is currently a resident at [place]. Patient was brought to the emergency room today due to complaints of generalized weakness, cough with expectoration. Patient reports she has been feeling ill for the past 3 to 4 days. She has had an increased cough with phlegm production. Phlegm is mostly mucoid in appearance. She had a temperature of 99.6 Fahrenheit. She was evaluated by her primary care physician on Thursday (today is Thursday) and started on doxycycline and prednisone 20 mg p.o. daily however she states her symptoms continue to progress. She feels extremely short of breath walking short distances within the assisted living. She is noted to be hypoxic today and has an oxygen requirement of 2 L/min. Her reports typically she is 90% on room air. At the time of this assessment patient is saturating 89 to 90% on 2 L/min supplemental O2. CT of the chest was performed with contrast which did not show any obvious pneumonia or pulmonary embolism. She has had increased lower extremity swelling Over the past 3 to 4 days. Her reports that she has a history of CHF however I am unable to find any recent echocardiogram in our record.. Patient complains of generalized weakness and muscle pain. She denies any abdominal pain diarrhea nausea or vomiting. Her appetite has been good. Review of Systems 2 General: Reports: 10 or more systems reviewed and unremarkable except in HPI and below Const: Denies: fever(s), chills or body aches Eyes: Denies: change in vision, blurry vision or photophobia ENMT: Reports: hoarseness; Denies: throat pain, enlarged tonsils, odynophagia or nasal congestion Card: Denies: chest pain, palpitations, irregular heart rhythm, edema, swelling of feet/ankles, lightheadedness, pre-syncope, dyspnea on exertion or orthopnea Resp: Denies: dyspnea, productive cough, non-productive cough, wheezing, stridor, pain on inspiration, change in phlegm color, hemoptysis or chest congestion GI: Denies: abdominal pain, nausea, vomiting, hematemesis, coffee ground emesis, dysphagia, heartburn, diarrhea, constipation, GI cramping, change in stool character, hematochezia or melena : Denies: flank pain, difficulty voiding, dysuria, urinary frequency, urinary urgency, urinary hesitancy or hematuria Musc: Denies: neck pain, back pain, extremity pain, joint swelling, joint warmth or deformity Neuro: Denies: headache(s), numbness in extremities, weakness in extremities, sensory changes, difficulty walking, frequent falls, dizziness, vertigo, behavioral changes, Slurred speech present or seizure-like activity Psych: Denies: anxiety, depression, suicidal ideation or homicidal ideation Endo: Denies: polyuria, polydipsia, tired all the time, cold intolerance or hot flashes Kennedy/Lymph: Denies: easy bruising or easy bleeding Medications/Allergies Home Medications ?Medication ?Instructions ?Recorded ?Confirmed ?Last Taken ?Type prednisone 5 mg tablet 5 mg PO DAILY #90 tabs 10/2503/06/25 Unknown Rx furosemide 20 mg tablet (Lasix) 10 mg (1/2 x 20 mg) PO QAM #60 tabs 12/12/24 03/06/25 03/05/25 Rx escitalopram oxalate 10 mg tablet 10 mg PO QAM 5 03/06/25 03/06/25 History fluticasone propionate 50 2 spray intranasal DAILY PRN 03/06/25 03/06/25 Unknown History mcg/actuation nasal allergies spray,suspension (Flonase Allergy Relief) omeprazole 20 mg capsule,delayed 20 mg PO QAM 03/06/25 03/06/25 03/05/25 History release omeprazole 40 mg capsule,delayed 40 mg PO QPM 03/06/25 03/06/25 03/05/25 History release tolterodine 4 mg capsule,extended 4 mg PO QPM 03/06/25 03/06/25 03/05/25 History release 24 hr Allergies Allergy/AdvReac Type Severity Reaction Status Date / Time sulfamethoxazole (From Allergy Unknown ALGY-Rash Verified 12/26/24 13:24 Bactrim) trimethoprim (From Bactrim) Allergy Unknown ALGY-Rash Verified 12/26/24 13:24 PFSH Acute 2 PFSH: Medical History Mixed incontinence Chronic lumbar pain Moderate major depression High risk medication use Inflammatory myopathy Positive GAUTAM (antinuclear antibody) Generalized muscle weakness DDD (degenerative disc disease) Surgical History History of hip replacement History of knee replacement Family History Other Rheumatoid arthritis Social History Smoking and tobacco/nicotine status: never used tobacco/nicotine Alcohol intake: current Alcohol intake frequency: holidays/special occasions only Vitals/I&O/Wt Last Vital Signs Temp 98.6 F 03/06/25 09:48 Pulse 98 03/06/25 14:18 Resp 16 03/06/25 14:14 BP 111/70 03/06/25 14:00 Pulse Ox 91 03/06/25 14:14 O2 Del Method Nasal Cannula 03/06/25 14:14 O2 Flow Rate 2.5 03/06/25 14:14 03/05/25 03/06/25 03/06/25 22:59 06:59 14:59 Intake Total 250 / 250 Balance 250 / 250 Weight last 48 hrs Weight 68.039 kg Physical Exam 2 Narrative: General: No acute distress, AO x3 HEENT: Supplemental O2 at 2 L/min Chest: Coarse crackles to auscultation bilaterally CVS: S1-S2 regular, no murmurs, no tachycardia, no gallops, no rubs Abdomen: Soft, nontender, no organomegaly Neuro: No focal deficits, no facial deformity, AO x3 Data 03/06/25 09:20 03/06/25 10:14 Other Labs: Radiology Impressions Chest X-Ray 03/06/25 09:38 IMPRESSION: No acute chest abnormality. Chest CT 03/06/25 11:12 IMPRESSION: 1. Marked decreased lung volumes. In part this is probably due to marked air distention of the stomach limiting expansion of the LEFT lung. 2. Compressive atelectasis at the lung bases from poor inspiratory effort. 3. No pulmonary embolism identified. 4. No pneumonia. 5. Hepatic cysts. Laboratory Results WBC 11.05 10^3/uL (3.29-11.43) 03/06/25 09:20 RBC 4.35 10^6/uL (3.85-5.65) 03/06/25 09:20 Hgb 14.00 g/dL (11.27-16.99) 03/06/25 09:20 Hct 44.5 % (36-47) 03/06/25 09:20 MCV 102.3 fl (85-98) H 03/06/25 09:20 MCH 32.2 pg (27-33) 03/06/25 09:20 MCHC 31.5 g/dL (30-55) 03/06/25 09:20 RDW 13.6 % (12.1-15.1) 03/06/25 09:20 Plt Count 172 10^3/cmm (157-399) 03/06/25 09:20 MPV 10.4 fL (7.4-10.4) 03/06/25 09:20 Neut % (Auto) 87.7 % 03/06/25 09:20 Lymph % (Auto) 3.2 % 03/06/25 09:20 [place] % (Auto) 6.8 % 03/06/25 09:20 Eos % (Auto) 1.5 % 03/06/25 09:20 Baso % (Auto) 0.5 % 03/06/25 09:20 Neut # (Auto) 9.70 10^3/uL (1.8-7.7) H 03/06/25 09:20 Lymph # (Auto) 0.4 10^3/uL (0.8-4.8) L 03/06/25 09:20 [place] # (Auto) 0.8 10^3/uL (0.2-0.9) 03/06/25 09:20 Eos # (Auto) 0.2 10^3/uL (0.0-0.8) 03/06/25 09:20 Baso # (Auto) 0.1 10^3/uL (0.0-0.1) 03/06/25 09:20 Nucleated RBC % (auto) 0 % 03/06/25 09:20 Nucleated RBCs # 0.0 /100WBC 03/06/25 09:20 Specimen Type Arterial 03/06/25 09:44 Sample Site Radial, right 03/06/25 09:44 ABG pH 7.40 (7.35-7.45) 03/06/25 09:44 ABG pCO2 49.6 mmHg (35-45) H 03/06/25 09:44 ABG pO2 70.2 mmHg (80.0-100.0) L 03/06/25 09:44 ABG HCO3 30.8 mmol/L (22-26) H 03/06/25 09:44 ABG O2 Saturation 94.2 03/06/25 09:44 ABG Base Excess 5.0 mmol/L (-2.0-2.0) H 03/06/25 09:44 Cordell Test Pos 03/06/25 09:44 A-a O2 Gradient 2.5 mmHg (5-10) L 03/06/25 09:44 Hematocrit 41.4 % (37-47) 03/06/25 09:44 Hgb O2 Saturation 91.8 % (95-100) L 03/06/25 09:44 Carboxyhemoglobin 1.5 %THgb (0.4-20.1) 03/06/25 09:44 Methemoglobin 1.0 % (0.4-1.5) 03/06/25 09:44 Total Hemoglobin 13.5 g/dL (12-16) 03/06/25 09:44 Sodium 143.0 mmol/L (131-143) 03/06/25 09:44 Potassium 4.0 mmol/L (3.5-5.0) 03/06/25 09:44 Glucose 132.0 mg/dL (70-115) H 03/06/25 09:44 Ionized Calcium 1.2 mmol/L (1.1-1.4) 03/06/25 09:44 O2 Delivery Device Nc 03/06/25 09:44 O2 Liters/Min 4.0 % 03/06/25 09:44 Furnace Erector ID [email or web address] 03/06/25 09:44 Sodium 143 mmol/L (136-145) 03/06/25 10:14 Potassium 4.1 mmol/L (3.5-5.1) 03/06/25 10:14 Chloride 102 mmol/L (98-107) 03/06/25 10:14 Carbon Dioxide 30 mmol/L (22-29) H 03/06/25 10:14 Anion Gap 15.1 (5-19) 03/06/25 10:14 BUN 24 mg/dL (8-23) H 03/06/25 10:14 Creatinine 0.6 mg/dL (0.5-0.9) 03/06/25 10:14 GFR Calculation Not Reportable 03/06/25 10:14 Glucose 118 mg/dL (65-115) H 03/06/25 10:14 Calculated Osmolality 301 mOsm/kg (285-295) H 03/06/25 10:14 Lactic Acid 1.2 mmol/L (0.5-2.2) 03/06/25 10:14 Calcium 9.4 mg/dL (8.5-10.5) 03/06/25 10:14 Total Bilirubin 0.4 mg/dL (0.15-1.2) 03/06/25 10:14 AST 24 U/L (0-32) 03/06/25 10:14 ALT 15 U/L (0-33) 03/06/25 10:14 Alkaline Phosphatase 110 U/L (35-105) H 03/06/25 10:14 Troponin T Baseline 17 ng/L (0-10) H 03/06/25 10:14 Troponin T 120 Minute 14.40 ng/L (0-10) H 03/06/25 11:45 Delta Troponin T -2.60 ABS# (0-10) L 03/06/25 11:45 NT-Pro-B Natriuret Pep 112 pg/mL (0-450) 03/06/25 10:14 Total Protein 7.1 g/dL (6.6-8.7) 03/06/25 10:14 Albumin 4.3 g/dL (3.5-5.2) 03/06/25 10:14 Globulin 2.8 g/dL (1.3-4.6) 03/06/25 10:14 Procalcitonin 0.04 ng/mL (0-0.5) 03/06/25 10:14 Influenza A (PCR) Negative (Negative) 03/06/25 10:10 Influenza Type B (PCR) Negative (Negative) 03/06/25 10:10 RSV (PCR) Negative (Negative) 03/06/25 10:10 SARS-CoV-2 (PCR) Negative (Negative) 03/06/25 10:10 Micro: Microbiology 03/06/25 10:14 Blood Culture - Preliminary Blood SPECIMEN COLLECTED 03/06/25 10:14 Blood Culture - Preliminary Blood SPECIMEN COLLECTED A&P Assessment and plan 1. Acute bronchitis: 2. Swelling of lower extremity: 3. Positive GAUTAM (antinuclear antibody): 4. Dermatomyositis: 5. Hypoxia: Plan: 85-year-old lady with a past medical history of inflammatory dermatomyositis, currently presenting with 2 to 3 days of increasing dyspnea, lower extremity swelling and increased cough with expectoration. Reports a fever of 99.6 Fahrenheit at home today. Patient is chronically on steroids 5 mg p.o. daily New oxygen requirement of 2 L/min today. Saturating 89 to 90% on 2 L/min supplemental O2. CT of the chest is negative for any PE. No obvious consolidation. Left lower lobe atelectasis noted. On examination noted to have coarse crackles bilaterally and for axillary areas and also diffuse wheezing affecting all lung man. Clinically suspect her to have acute bronchitis, possibility of bacterial bronchitis not excluded at this time. Check respiratory viral panel. Start empiric ceftriaxone 1 g IV every 24 hours. Atypical coverage with azithromycin 500 mg p.o. daily for 3 days, though this is considered less likely at this time given that she has recently received 3 days of doxycycline additionally. Start DuoNeb every 6 hours, budesonide 0.5 mg twice daily. Methylprednisolone 40 mg IV every 8 hours Suspected generalized weakness to be related to acute illness, however given her history of myositis will check CK to assess for any acute worsening. Encourage incentive spirometry. Bilateral lower extremity swelling noted. Patient's reports a history of CHF though I am unable to see any recent echocardiogram in our records. Will obtain echocardiogram today. Start Lasix 20 mg IV every 12 hours. Further Lasix dosing to be dependent on clinical response, urine output and echocardiogram results. DVT prophylaxis: Lovenox 40 mg subcutaneously daily PDMP PDMP Reviewed: Not Reviewed Attestations 2 Medical Necessity Statement*: Greater than 2 midnight stay is anticipated Coding Level of Care Code Acute Code for [facility] Fwd Diagnoses Acute bronchitis J20.9 Swelling of lower extremity M79.89 Positive GAUTAM (antinuclear antibody) R76.8 Dermatomyositis M33.13 Hypoxia R09.02
--- NOTE | 2025-03-06 14:42 | USCV_ITS ---
Shelly Cortes Age: 85 Gender: F : 1940 Exam Date: 03/06/2025 16:35 Ordering Phys: Radha Armando MD Technologist: YUAN [place]am [place] [facility] [place]: CHF BP: 119 / 64 HR: 82 Rhythm: Sinus Technical Quality: Adequate MEASUREMENTS (Male / Female) Normal Values 2D ECHO LV Diastolic Diameter PLAX 3.5 cm 4.2 - 5.9 / 3.9 - 5.3 cm IVS Diastolic Thickness 0.6 cm 0.6 - 1.0 / 0.6 - 0.9 cm IVS Systolic Thickness 1.1 cm LVPW Diastolic Thickness 0.9 cm 0.6 - 1.0 / 0.6 - 0.9 cm LVPW Systolic Thickness 1.2 cm LVOT Diameter 2.0 cm LV Ejection Fraction 2D Teich 51.1 % LV Ejection Fraction MOD 4C 51.7 % LV Ejection Fraction MOD 2C 58.6 % LV Ejection Fraction 2C AL 62.8 % LA Diameter 2.8 cm RA Systolic Volume 4C AL 20.7 ml RA Systolic Volume 4C MOD 18.8 ml LA Sys Volume AL 34.1 cm cubed LA Sys Volume Index AL 18.8 cm cubed/m squared Aorta at Sinotubular Diameter 2.0 cm M-MODE LA Ao Ratio MM 1.3 AV Cusp Separation MM 1.9 cm DOPPLER AV Peak Velocity 128.0 cm/s LVOT Peak Velocity 97.0 cm/s AV Area Cont Eq vti 3.1 cm squared AV Area Cont Eq pk 2.4 cm squared MV Peak Velocity 147.0 cm/s MV Area PHT 8.5 cm squared Mitral E to A Ratio 0.4 FINDINGS Left Ventricle Normal left ventricular size and systolic function, EF58%. Mild hypokinesis of the basal inferior wall segment.Grade I/IV diastolic dysfunction (abnormal relaxation filling pattern), normal to mildly elevated filling pressures. Right Ventricle Not visualized Right Atrium Right atrium not well visualized. Left Atrium Possibly of normal size Mitral Valve Moderate mitral annular calcification. Aortic Valve Thickened aortic valve. Tricuspid Valve Tricuspid valve not well visualized. Pulmonic Valve Pulmonic valve not well visualized. Pericardium No pericardial effusion. Aorta Normal aortic annulus size. IVC Inferior vena cava not visualized. CONCLUSIONS Normal left ventricular size and systolic function, EF58%. Mild hypokinesis of the basal inferior wall segment. Grade I/IV diastolic dysfunction (abnormal relaxation filling pattern), normal to mildly elevated filling pressures. Moderate mitral annular calcification. The right sided structures could not be visualized well There is no pericardial effusion. Technically difficult study because of the poor ultrasonic window. Dr David Petty MD FAC (Electronically Signed) Final Date: 07 March 2025 08:30 S
--- NOTE | 2025-03-06 15:38 | ECG_ITS ---
[facility] Test Date: 2025-03-06 Pat Name: Shelly Cortes Department: Room: 112 Gender: Female Policy Director: : 1940 Requested By: Jez David Order Number: [id number] Gisele MD: aDvid Petty M.D. Measurements Intervals [place] Rate: 92 P: 67 SD: 184 QRS: -30 QRSD: 150 T: 92 QT: 395 QTc: 489 Interpretive Statements SINUS RHYTHM LEFT BUNDLE BRANCH BLOCK [120+ ms QRS DURATION, 80+ ms Q/S IN V1/V2, 85+ ms R IN I/aVL/V5/V6] Compared to ECG 03/06/2025 11:13:20 Sinus tachycardia no longer present Left-axis deviation no longer present Electronically Signed On 03-07-2025 18:10:36 CDT by David Petty M.D. [email or web address]
[2025-03-06] MEDS: cefTRIAXone 1,000 mg SDV 1000 MG IVP (15:47)
[2025-03-06 15:51] LABS: Troponin 5 6HR 14.91 ng/L (0-10)
[2025-03-06 15:54] LABS: Troponin 5 6HR Delta -2.09 ng/L (0-12)
[2025-03-06] MEDS: FUROsemide 10 mg/mL SDV 2mL 20 MG IVP (17:20)
[2025-03-06] MEDS: methylPREDNISolone sod succ 40 mg/mL INJ IVP (21:54)
[2025-03-07] VITALS (9 sets, daily range): BP systolic 127–135; BP diastolic 69–83; PULSE 76–95; RESP 18–23; TEMP 36.6–37.1; O2SAT 19–96; BMI 23.3
[2025-03-07] MEDS: FUROsemide 10 mg/mL SDV 2mL 20 MG IVP ×2 (05:11→16:39)
[2025-03-07] MEDS: methylPREDNISolone sod succ 40 mg/mL INJ IVP ×2 (05:11→13:15)
[2025-03-07 06:11] LABS: Hematocrit 39.8 % (36-47); Hemoglobin 12.80 g/dL (11.27-16.99); Mean Corpuscular HGB Conc 32.2 g/dL (30-55); Mean Corpuscular Hemoglobin 32.2 pg (27-33); Mean Corpuscular Volume 100.3 fl (85-98); Nucleated Red Blood Cells % 0 %; Platelet Count 152 10^3/cmm (157-399); Red Blood Count 3.97 10^6/uL (3.85-5.65); White Blood Count 9.39 10^3/uL (3.29-11.43)
[2025-03-07 06:30] LABS: Alanine Aminotransferase 17 U/L (0-33); Albumin Level 3.9 g/dL (3.5-5.2); Alkaline Phosphatase 99 U/L (35-105); Anion Gap 14.0 (5-19); Aspartate Amino Transferase 21 U/L (0-32); Blood Urea Nitrogen 18 mg/dL (8-23); Calcium 9.6 mg/dL (8.5-10.5); Carbon Dioxide 32 mmol/L (22-29); Chloride 101 mmol/L (98-107); Creatinine Clr Calc Pharmacy 54.7592; Globulin 2.9 g/dL (1.3-4.6); Glucose 146 mg/dL (65-115); Magnesium 2.4 mg/dL (1.7-2.3); Osmolality Calculated 301 mOsm/kg (285-295); Potassium 4.0 mmol/L (3.5-5.1); Sodium 143 mmol/L (136-145); Total Protein 6.8 g/dL (6.6-8.7)
--- NOTE | 2025-03-07 10:13 | PC.CHAP ---
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 [] Patient/Family/Request visit [] Outpatient visit [] Follow-up visit [] Physician referral [] Code/Alert [x] Routine visit [] Staff referral [] Actively dying [] Patient sleeping [] Family support [] [] Out of room [] Palliative care [] [] Receiving care in room [] Pre-surgical visit [] Trauma [] Long length of stay [] ICU visit [] Other: Relational/Emotional Strength [x] Patient feels connected with others/family/visitors/staff [] Distress [] Loneliness/isolation [] Abandonment Spirituality of Patient [x] Person of Aurelia [] Attends Roman Catholic of their Aurelia [x Believes in Prayer [] Reads Bible or Sikhism materials [] There are Spiritual issues to be addressed 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 [x] Prayer [x] Active listening [x] Non-anxious presence [x] Spiritual/emotional support [] Crisis/trauma care [] Spiritual counseling [] Bereavement support [] Provided bereavement packet [] Provided Bible/devotional materials [] Provided toy/stuffed animal, coloring book to patient or family member [] Provided Communion [] Anointing/[place] [] Salvation [x] Completed spiritual assessment [] Other: Impact on Illness or Injury [] Angry [] Fearful [] Anxious [] Often cries [] Exhaustion [] Unable to work [] Unable to attend taoism [] Unable to walk/stand [] Unable to read [] Unable to drive [] Unable to eat/drink [] Unable to sleep [] Unable to be with family [] Patient intubated [] Other: Summary Time spent with patient 5 min
[2025-03-07 13:21] LABS: Coronavirus 229E,HKU1,NL63,OC4 Not Detected (NOT DETECT); Parainfluenza Virus Type 1 Not Detected (NOT DETECT); Parainfluenza Virus Type 2 Not Detected (NOT DETECT); Parainfluenza Virus Type 3 Not Detected (NOT DETECT); Parainfluenza Virus Type 4 Not Detected (NOT DETECT); SARS-COV-2 Not Detected (NOT DETECT)
[2025-03-07] MEDS: cefTRIAXone 1,000 mg SDV 1000 MG IVP (13:32)
--- NOTE | 2025-03-07 14:07 | P.PN_ITS ---
Subjective 2 Subjective: Clinically feels about the same. Wheezing is improving today. improved edema Medications: Reviewed: Yes Vitals/I&O/Wt Last Vital Signs Temp 97.9 F 03/07/25 11:21 Pulse 91 03/07/25 11:21 Resp 20 H 03/07/25 11:21 BP 133/80 03/07/25 11:21 Pulse Ox 90 03/07/25 11:21 O2 Del Method Nasal Cannula 03/07/25 11:21 O2 Flow Rate 4 03/07/25 11:21 Weight last 48 hrs Weight 69.808 kg Weight 70.806 kg Weight 68.039 kg Physical Exam 2 Narrative: General: No acute distress, AO x3 HEENT: Supplemental O2 at 2 L/min Chest: clear to auscultation B/L CVS: S1-S2 regular, no murmurs, no tachycardia, no gallops, no rubs Abdomen: Soft, nontender, no organomegaly Neuro: No focal deficits, no facial deformity, AO x3 Data 03/07/25 06:04 03/07/25 06:04 Micro: Microbiology 03/06/25 10:14 Blood Culture - Preliminary Blood NEGATIVE TO DATE 03/06/25 10:14 Blood Culture - Preliminary Blood NEGATIVE TO DATE A&P Assessment and plan 1. Acute bronchitis: 2. Swelling of lower extremity: 3. Positive GAUTAM (antinuclear antibody): 4. Dermatomyositis: 5. Hypoxia: Plan: 85-year-old lady with a past medical history of inflammatory dermatomyositis, currently presenting with 2 to 3 days of increasing dyspnea, lower extremity swelling and increased cough with expectoration. Reports a fever of 99.6 Fahrenheit at home today. Patient is chronically on steroids 5 mg p.o. daily New oxygen requirement of 2 L/min today. Saturating 89 to 90% on 2 L/min supplemental O2. CT of the chest is negative for any PE. No obvious consolidation. Left lower lobe atelectasis noted. On examination noted to have coarse crackles bilaterally and for axillary areas and also diffuse wheezing affecting all lung man. Clinically suspect her to have acute bronchitis, possibility of bacterial bronchitis not excluded at this time. Check respiratory viral panel. Start empiric ceftriaxone 1 g IV every 24 hours. Atypical coverage with azithromycin 500 mg p.o. daily for 3 days, though this is considered less likely at this time given that she has recently received 3 days of doxycycline additionally. Start DuoNeb every 6 hours, budesonide 0.5 mg twice daily. Methylprednisolone 40 mg IV every 8 hours Suspected generalized weakness to be related to acute illness, however given her history of myositis will check CK to assess for any acute worsening. Encourage incentive spirometry. Bilateral lower extremity swelling noted. Patient's reports a history of CHF though I am unable to see any recent echocardiogram in our records. Will obtain echocardiogram today. Start Lasix 20 mg IV every 12 hours. Further Lasix dosing to be dependent on clinical response, urine output and echocardiogram results. DVT prophylaxis: Lovenox 40 mg subcutaneously daily March 07 2025 Patient states she feels about the same. However less tachypneic in conversation today. No audible wheezing encountered today. Lower extremity edema appears to be improving. Respiratory viral panel resulted positive for enterovirus. Continue supplemental O2, at 4 L/min today. Encourage incentive spirometry. Continue nebulization with DuoNeb and budesonide. Reduce methylprednisolone to 40 mg IV every 24 hours today. PDMP PDMP Reviewed: Not Reviewed Attestations 2 Medical Necessity Statement*: Acute viral versus bacterial bronchitis. If continues to improve next 24 hours anticipate discharge. Coding Level of Care Code Acute Code for [facility] Fwd Diagnoses Acute bronchitis J20.9 Swelling of lower extremity M79.89 Positive GAUTAM (antinuclear antibody) R76.8 Dermatomyositis M33.13 Hypoxia R09.02
--- NOTE | 2025-03-07 14:42 | USCV_ITS ---
Shelly Cortes Age: 85 Gender: F : 1940 Exam Date: 03/07/2025 09:45 Ordering Phys: Radha Armando MD Technologist: Exam Location: [facility] – [place] Indication: bilat edmema PROCEDURES: The venous duplex Doppler examination of both lower extremities was performed in the standard fashion. The following venous structures were evaluated: common femoral vein, profunda vein, proximal portion of the greater saphenous vein, superficial femoral vein, and the popliteal vein. FINDINGS: Normal 2-D Doppler and augmentation and compressibility throughout the lower extremity venous structures. Additional imaging through the proximal calf veins also reveals no thrombus. Limited evaluation of the greater saphenous vein is patent with no thrombus. CONCLUSIONS No DVT bilateral lower extremities. Dr. Marita Newton DO (Electronically Signed) Final Date: 07 March 2025 12:30 S
[2025-03-08] VITALS (12 sets, daily range): BP systolic 121–154; BP diastolic 67–85; PULSE 66–88; RESP 17–26; TEMP 36.4–37; O2SAT 86–98
[2025-03-08] MEDS: FUROsemide 10 mg/mL SDV 2mL 20 MG IVP (04:02)
[2025-03-08 04:05] LABS: Hematocrit 38.0 % (36-47); Hemoglobin 12.30 g/dL (11.27-16.99); Mean Corpuscular HGB Conc 32.4 g/dL (30-55); Mean Corpuscular Hemoglobin 32.8 pg (27-33); Mean Corpuscular Volume 101.3 fl (85-98); Nucleated Red Blood Cells % 0 %; Platelet Count 161 10^3/cmm (157-399); Red Blood Count 3.75 10^6/uL (3.85-5.65); White Blood Count 9.58 10^3/uL (3.29-11.43)
[2025-03-08 04:24] LABS: Alanine Aminotransferase 15 U/L (0-33); Albumin Level 3.5 g/dL (3.5-5.2); Alkaline Phosphatase 89 U/L (35-105); Anion Gap 12.7 (5-19); Aspartate Amino Transferase 16 U/L (0-32); Blood Urea Nitrogen 28 mg/dL (8-23); Calcium 9.0 mg/dL (8.5-10.5); Carbon Dioxide 34 mmol/L (22-29); Chloride 101 mmol/L (98-107); Creatinine Clr Calc Pharmacy 54.3807; Globulin 2.8 g/dL (1.3-4.6); Glucose 118 mg/dL (65-115); Osmolality Calculated 305 mOsm/kg (285-295); Potassium 3.7 mmol/L (3.5-5.1); Sodium 144 mmol/L (136-145); Total Protein 6.3 g/dL (6.6-8.7)
[2025-03-08 07:10] LABS: Glucose Urine UA Negative (Normal); Nitrate Urine Negative (Negative); Specific Gravity, Urine 1.009 (1.005-1.030)
[2025-03-08 07:15] LABS: Add Urine Microscopic? YES
[2025-03-08 07:55] LABS: UA Slide Review UA Slide Review Perf
--- NOTE | 2025-03-08 14:14 | P.DS_ITS ---
Discharge Providers Date of Admission: 03/06/25 13:57 Date of Discharge: March 08, 2025 Attending Provider at Admission: Radha Armando MD Attending Provider at Discharge: Radha Armando MD Primary Care Provider: Jean Simpson MD Diagnoses at Discharge Discharge Diagnosis 1. Acute bronchitis: 2. Swelling of lower extremity: 3. Positive GAUTAM (antinuclear antibody): 4. Dermatomyositis: 5. Hypoxia: 6. 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 She is currently a resident at [facility]. Patient was brought to the emergency room due to complaints of generalized weakness, cough with expectoration which had not improved in spite of being on an outpatient course with doxycycline and prednisone 20. CT of the chest was performed which did not show any gross consolidation. Patient had cough with significant expectoration. She had a new oxygen requirement of 2 to 3 L/min as she was saturating 88% on room air. She tested positive for rhino/enterovirus. Overall clinical impression was that of acute bronchitis with possibility of superadded bacterial bronchitis not excluded. She received treatment with ceftriaxone and azithromycin during the hospital course. She had significant wheezing on day of admission and received IV steroids and scheduled nebulization for the same. At this time her wheezing is resolved. She has not had a fever or leukocytosis. Overall clinically is improved however still has a persistent cough. Discussed with the patient that I suspect she may have reactive airway disease and her cough may persist for a few weeks after the acute infection. She is being discharged today in improved condition on prescriptions for oral Augmentin, addition of salmeterol/fluticasone inhaler to be used twice a day, a short course of oral steroids at the time of discharge. Patient was also noted to have lower extremity edema. Concern for acute on chronic diastolic CHF exacerbation. She received diuresis with IV Lasix. Kidney function remained stable. She is being discharged with recommendations to continue oral Lasix at discharge. Echocardiogram was performed which showed an ejection fraction of 58%. Grade 1 diastolic dysfunction was noted along with hypokinesia of the basal inferior wall segment. However per patient , regional wall motion abnormality has been present since at least 10 years. She qualified for supplemental home oxygen at the time of discharge Physical Exam Narrative: General: No acute distress, AO x3 HEENT: PERRLA, pupils bilaterally equal and reactive, pallors not present Chest: Normal vesicular breath sounds, no added sounds, equal good air entry bilaterally CVS: S1-S2 regular, no murmurs, no tachycardia, no gallops, no rubs Abdomen: Soft, nontender, no organomegaly, bowel sounds present Neuro: No focal deficits, no facial deformity, AO x3, power 5/5 in all limbs Discharge Data Studies Completed and Pending Completed Studies During Hospitalization Category Date Time Status CT chest w con* [id number] Stat Cat Scan 03/06/25 11:12 Completed XR chest 1V portable [id number] Stat Exams 03/06/25 09:38 [place] [id number] Routine Ultrasound 03/07/25 14:42 Completed CV. echo complete* [id number] Routine Ultrasound 03/06/25 14:42 Completed Pending at discharge Category Date Time Status Blood Culture Stat Lab 03/06/25 10:14 Results Radiology Impressions Chest X-Ray 03/06/25 09:38 IMPRESSION: No acute chest abnormality. Chest CT 03/06/25 11:12 IMPRESSION: 1. Marked decreased lung volumes. In part this is probably due to marked air distention of the stomach limiting expansion of the LEFT lung. 2. Compressive atelectasis at the lung bases from poor inspiratory effort. 3. No pulmonary embolism identified. 4. No pneumonia. 5. Hepatic cysts. Laboratory Results WBC 9.58 10^3/uL (3.29-11.43) 03/08/25 03:33 RBC 3.75 10^6/uL (3.85-5.65) L 03/08/25 03:33 Hgb 12.30 g/dL (11.27-16.99) 03/08/25 03:33 Hct 38.0 % (36-47) 03/08/25 03:33 MCV 101.3 fl (85-98) H 03/08/25 03:33 MCH 32.8 pg (27-33) 03/08/25 03:33 MCHC 32.4 g/dL (30-55) 03/08/25 03:33 RDW 13.0 % (12.1-15.1) 03/08/25 03:33 Plt Count 161 10^3/cmm (157-399) 03/08/25 03:33 MPV 10.1 fL (7.4-10.4) 03/08/25 03:33 Neut % (Auto) 85.9 % 03/08/25 03:33 Lymph % (Auto) 6.8 % 03/08/25 03:33 [place] % (Auto) 6.6 % 03/08/25 03:33 Eos % (Auto) 0.1 % 03/08/25 03:33 Baso % (Auto) 0.1 % 03/08/25 03:33 Neut # (Auto) 8.23 10^3/uL (1.8-7.7) H 03/08/25 03:33 Lymph # (Auto) 0.7 10^3/uL (0.8-4.8) L 03/08/25 03:33 [place] # (Auto) 0.6 10^3/uL (0.2-0.9) 03/08/25 03:33 Eos # (Auto) 0.0 10^3/uL (0.0-0.8) 03/08/25 03:33 Baso # (Auto) 0.0 10^3/uL (0.0-0.1) 03/08/25 03:33 Nucleated RBC % (auto) 0 % 03/08/25 03:33 Nucleated RBCs # 0.0 /100WBC 03/08/25 03:33 Specimen Type Arterial 03/06/25 09:44 Sample Site Radial, right 03/06/25 09:44 ABG pH 7.40 (7.35-7.45) 03/06/25 09:44 ABG pCO2 49.6 mmHg (35-45) H 03/06/25 09:44 ABG pO2 70.2 mmHg (80.0-100.0) L 03/06/25 09:44 ABG HCO3 30.8 mmol/L (22-26) H 03/06/25 09:44 ABG O2 Saturation 94.2 03/06/25 09:44 ABG Base Excess 5.0 mmol/L (-2.0-2.0) H 03/06/25 09:44 [place] Test Pos 03/06/25 09:44 A-a O2 Gradient 2.5 mmHg (5-10) L 03/06/25 09:44 Hematocrit 41.4 % (37-47) 03/06/25 09:44 Hgb O2 Saturation 91.8 % (95-100) L 03/06/25 09:44 Carboxyhemoglobin 1.5 %THgb (0.4-20.1) 03/06/25 09:44 Methemoglobin 1.0 % (0.4-1.5) 03/06/25 09:44 Total Hemoglobin 13.5 g/dL (12-16) 03/06/25 09:44 Sodium 143.0 mmol/L (131-143) 03/06/25 09:44 Potassium 4.0 mmol/L (3.5-5.0) 03/06/25 09:44 Glucose 132.0 mg/dL (70-115) H 03/06/25 09:44 Ionized Calcium 1.2 mmol/L (1.1-1.4) 03/06/25 09:44 O2 Delivery Device Nc 03/06/25 09:44 O2 Liters/Min 4.0 % 03/06/25 09:44 Bander ID Wqlci 03/06/25 09:44 Sodium 144 mmol/L (136-145) 03/08/25 03:33 Potassium 3.7 mmol/L (3.5-5.1) 03/08/25 03:33 Chloride 101 mmol/L (98-107) 03/08/25 03:33 Carbon Dioxide 34 mmol/L (22-29) H 03/08/25 03:33 Anion Gap 12.7 (5-19) 03/08/25 03:33 BUN 28 mg/dL (8-23) H 03/08/25 03:33 Creatinine 0.5 mg/dL (0.5-0.9) 03/08/25 03:33 GFR Calculation Not Reportable 03/08/25 03:33 Glucose 118 mg/dL (65-115) H 03/08/25 03:33 Calculated Osmolality 305 mOsm/kg (285-295) H 03/08/25 03:33 Lactic Acid 1.2 mmol/L (0.5-2.2) 03/06/25 10:14 Calcium 9.0 mg/dL (8.5-10.5) 03/08/25 03:33 Magnesium 2.4 mg/dL (1.7-2.3) H 03/07/25 06:04 Magnesium Cancelled 03/07/25 06:04 Total Bilirubin 0.2 mg/dL (0.15-1.2) 03/08/25 03:33 AST 16 U/L (0-32) 03/08/25 03:33 ALT 15 U/L (0-33) 03/08/25 03:33 Alkaline Phosphatase 89 U/L (35-105) 03/08/25 03:33 Creatine Kinase 33 U/L (26-192) 03/06/25 10:14 Troponin T Baseline 17 ng/L (0-10) H 03/06/25 10:14 Troponin T 120 Minute 14.40 ng/L (0-10) H 03/06/25 11:45 Delta Troponin T -2.60 ABS# (0-10) L 03/06/25 11:45 Troponin T Hi Sens 6Hr 14.91 ng/L (0-10) H 03/06/25 15:18 Troponin T Hi Sens 6Hr Delta -2.09 ng/L (0-12) L 03/06/25 15:18 NT-Pro-B Natriuret Pep 112 pg/mL (0-450) 03/06/25 10:14 Total Protein 6.3 g/dL (6.6-8.7) L 03/08/25 03:33 Albumin 3.5 g/dL (3.5-5.2) 03/08/25 03:33 Globulin 2.8 g/dL (1.3-4.6) 03/08/25 03:33 Procalcitonin 0.04 ng/mL (0-0.5) 03/06/25 10:14 Urine Color Yellow (Yellow) 03/06/25 07:00 Urine Appearance Clear (CLEAR) 03/06/25 07:00 Urine pH 5.5 (5-7) 03/06/25 07:00 Ur Specific [place] 1.009 (1.005-1.030) 03/06/25 07:00 Urine Protein Negative (Negative) 03/06/25 07:00 Urine Glucose (UA) Negative (Normal) 03/06/25 07:00 Urine Ketones Negative (Negative) 03/06/25 07:00 Urine Blood Negative (Negative) 03/06/25 07:00 Urine Nitrate Negative (Negative) 03/06/25 07:00 Urine Bilirubin Negative (Negative) 03/06/25 07:00 Urine Urobilinogen 0.2 mg/dL (Negative) 03/06/25 07:00 Ur Leukocyte Esterase Negative (Negative) 03/06/25 07:00 Urine RBC 0-2 /hpf (0-2) 03/06/25 07:00 Urine WBC 0-5 /hpf (0-5) 03/06/25 07:00 Ur Squamous Epith Cells 0-5 /hpf (0-5) 03/06/25 07:00 Amorphous Sediment Not Reportable 03/06/25 07:00 Urine Bacteria None seen /hpf (NONE) 03/06/25 07:00 Hyaline Casts 8.26 /lpf 03/06/25 07:00 Adenovirus (PCR) Not detected (NOT DETECT) 03/07/25 11:20 C. pneumoniae DNA (PCR) Not detected (NOT DETECT) 03/07/25 11:20 Coronavirus 229E (PCR) Not detected (NOT DETECT) 03/07/25 11:20 Human Metapneumovir PCR Not detected (NOT DETECT) 03/07/25 11:20 Influenza A (H1) PCR Not detected (NOT DETECT) 03/07/25 11:20 Influenza A (PCR) Negative (Negative) 03/06/25 10:10 Influ A (H1/09) PCR Not detected (NOT DETECT) 03/07/25 11:20 Influenza A (H3) PCR Not detected (NOT DETECT) 03/07/25 11:20 Influenza Type A (PCR) Not detected (NOT DETECT) 03/07/25 11:20 Influenza Type B (PCR) Not detected (NOT DETECT) 03/07/25 11:20 M. pneumoniae (PCR) Not detected (NOT DETECT) 03/07/25 11:20 Parainfluenza 1 (PCR) Not detected (NOT DETECT) 03/07/25 11:20 Parainfluenza 2 (PCR) Not detected (NOT DETECT) 03/07/25 11:20 Parainfluenza 3 (PCR) Not detected (NOT DETECT) 03/07/25 11:20 Parainfluenza 4 (PCR) Not detected (NOT DETECT) 03/07/25 11:20 RSV (PCR) Negative (Negative) 03/06/25 10:10 RSV Type A (PCR) Not detected (NOT DETECT) 03/07/25 11:20 RSV Type B (PCR) Not detected (NOT DETECT) 03/07/25 11:20 Entero/Rhino (PCR) Detected (NOT DETECT) A 03/07/25 11:20 SARS-CoV-2 (PCR) Not detected (NOT DETECT) 03/07/25 11:20 Vitals Last Vital Signs Temp 97.5 F L 03/08/25 04:05 Pulse 81 03/08/25 10:00 Resp 26 H 03/08/25 09:30 BP 154/85 03/08/25 10:30 Pulse Ox 86 L 03/08/25 10:24 O2 Del Method Nasal Cannula 03/08/25 09:07 O2 Flow Rate 5 03/08/25 10:24 Discharge Plan Discharge Patient Disposition: Home Condition: Stable Prescriptions: New benzonatate 100 mg Capsule 100 mg PO TID PRN (Reason: Cough) Qty: 20 0RF azithromycin 250 mg Tablet 500 mg PO DAILY 1 Days Qty: 1 0RF amoxicillin-pot clavulanate 875-125 mg tablet 1 tab PO BID 4 Days Qty: 8 0RF fluticasone propion-salmeterol [Advair Diskus] 500-50 mcg/dose blister with device 1 inh inhalation BID 30 Days Qty: 60 0RF prednisone 10 mg tablet 10 mg PO DIRECTED Qty: 14 0RF Rx Instructions: 40MG bid X 2 DAYS, 20MG bid X 2 DAYS, 10MG bid X 2 DAYS. Continued omeprazole 40 mg capsule,delayed release(DR/EC) 40 mg PO QPM tolterodine 4 mg capsule,extended release 24hr 4 mg PO QPM fluticasone propionate [Flonase Allergy Relief] 50 mcg/actuation spray,suspension 2 spray intranasal DAILY PRN (Reason: allergies) Rx Instructions: administer into each nostril escitalopram oxalate 10 mg tablet 10 mg PO QAM prednisone 5 mg tablet 5 mg PO DAILY Qty: 90 1RF Rx Instructions: on hold Changed furosemide [Lasix] 20 mg tablet 20 mg PO QAM Qty: 60 1RF Discontinued omeprazole 20 mg capsule,delayed release(DR/EC) 20 mg PO QAM Discharge Order = DC NOW: Discharge Order (Routine); Ordered 03/08/25 Ordered By: Radha Armando Other Ambulatory Orders: DME: Oxygen (Order) Location: None Selected Ordered By: Radha Armando Referrals: Neal Kincaid MD [Physician, Cardiology] Jean Simpson MD [Primary Care Provider, [facility]] - 03/22/25 2:30 pm Referral Note: HOSPITAL DISCHARGE FOLLOW UP Discharge Diet: Usual diet Discharge Activity: Increase activity as tolerated Patient Instructions: Opioid Safety, Pain Management, Patient Portal & Isaiah Instructions Discharge Attestations Time Spent in Discharge Care*: greater than 30 min Quality Metrics Clinical Quality Measures [ No reported AMI, CVA or VTE this stay] Coding Level of Care Code Acute Code for Chg Fwd Diagnoses Acute bronchitis J20.9 Swelling of lower extremity M79.89 Positive GAUTAM (antinuclear antibody) R76.8 Dermatomyositis M33.13 Hypoxia R09.02 Reactive airway disease J45.909
--- NOTE | 2025-03-08 15:39 | PC.OT ---
OT EVALUATION ORDERS RECEIVED. PATIENT SCHEDULED FOR D/C; HOLD OT EVAL AT THIS TIME
--- NOTE | 2025-03-08 16:08 | PC.NURSE ---
the patient qualified for home oxygen. The said he wanted to use HOME, so HOME was called but they called back and said they did not accept [employer] insurance. The director case was notified and began working on getting home oxygen set up through [employer]. The patient still wanted to use HOME if possible, and it was explained to both the patient and her that Medicare would cover 80% but [employer] may not pay for the last 20%. Patient's verbalized understanding but wanted whichever company would get them out of the hospital fastest. [facility] was able to come over and set patient up with oxygen, but the patient's only wanted brand new equipment, so the [facility] cash on delivery clerk had to go back over to [facility] and get new equipment. Again, it was explained to the patient that [employer] may not cover the last 20% and the patient's said where were we at with [employer]? which had been cancelled when the patient's said he wanted whatever was faster. It was explained to the that the [employer] process had been cancelled. [facility] parts representative was with the patient and her for quite a while explaining the home oxygen set up and how to get more 02. When the [facility] parts representative was done, patient and his asked to be wheeled out to the main entrance via wheelchair.
== END 2025-03-08 16:16 | disposition intermediate care facility (04) | DRG 202 ==
LOC: ER 13:05 → CSU 13:58
PROVIDERS: Admitting Provider Student in an Organized Health Care Education/Training Program; Emergency Provider Physician Assistant; PCP Family Medicine; Visit Provider Student in an Organized Health Care Education/Training Program
DX: J20.6 Acute bronchitis due to rhinovirus (principal); I50.33 Acute on chronic diastolic (congestive) heart failure; J98.11 Atelectasis; M33.12 Other dermatomyositis with myopathy; F33.9 Major depressive disorder, recurrent, unspecified; J45.909 Unspecified asthma, uncomplicated; B34.1 Enterovirus infection, unspecified; Z88.2 Allergy status to sulfonamides; Z96.659 Presence of unspecified artificial knee joint; Z96.649 Presence of unspecified artificial hip joint; Z79.51 Long term (current) use of inhaled steroids; R09.02 Hypoxemia
CPT/HCPCS: 36415; 36600; 71045; 71260; 80051; 80053; 81001; 82330; 82550; 82805; 83605; 83735; 83880; 84145; 84484; 85025; 87040; 87486; 87581; 87633; 87637; 93005; 93306; 93970; 94640; 94760; 96365; 96372; 96375; 97116; 97161; 99285; J0456; J0696; J1650; J1938; J2919; J7050; J7626; J9999; Q0144

== ENCOUNTER → 2025-06-07 09:36 | Outpatient (BNVA) | payer MEDICARE, OTHER, SELFPAY | PROVIDERS: PCP Family Medicine; Visit Provider Internal Medicine Rheumatology | DX: M62.81 Muscle weakness (generalized) (principal); Z90.49 Acquired absence of other specified parts of digestive tract; R76.89 Other specified abnormal immunological findings in serum; G72.49 Other inflammatory and immune myopathies, not elsewhere classified; Z79.899 Other long term (current) drug therapy | CPT/HCPCS: 36415; 80076; 82085; 82306; 82550; 82565; 85025; 85651; 86140; 86480; 86704; 86803; 87340; 99214 ==

== ENCOUNTER 2025-06-21 08:12 | Oncology outpatient (recurring) (ONCR) | payer MEDICARE, OTHER, SELFPAY ==
[2025-06-19 09:08] VITALS: BP 148/84; PULSE 83; TEMP 36.9; O2SAT 90
--- NOTE | 2025-06-19 09:25 | PC.PHAR ---
ivig dose adjusted per protocol for ideal body weight: Height (in) Weight (kg) Sex (M/F) IBW (kg) AdjBW (kg) % over IBW Dose (g/kg) Chosen Weight (kg) Calculated Dose (g) Rounded Dose (g) Number of 10g vials 67 70.4 F 61.6 65.12 [id number] 0.7 61.6 43.12 40 4
[2025-06-19] MEDS: immune globulin (Gamunex-C) 40 GM in empty flexible container 1 EACH IV (10:06)
[2025-06-19 10:10] VITALS: BP 144/77; PULSE 73; TEMP 36.7; O2SAT 92
[2025-06-19 11:33] VITALS: BP 141/75; PULSE 71; TEMP 36.6; O2SAT 94
[2025-06-19 12:40] VITALS: BP 154/83; PULSE 74; TEMP 36.4; O2SAT 94
[2025-06-20] VITALS (7 sets, daily range): BP systolic 144–162; BP diastolic 80–88; PULSE 70–77; RESP 16–17; TEMP 36.8–37.1; O2SAT 91–95
[2025-06-20] MEDS: immune globulin (Gamunex-C) 40 GM in empty flexible container 1 EACH IV (09:48)
[2025-06-21] VITALS (7 sets, daily range): BP systolic 131–161; BP diastolic 77–96; PULSE 70–84; RESP 16–18; TEMP 36.6–36.9; O2SAT 93–97
[2025-06-21] MEDS: immune globulin (Gamunex-C) 40 GM in empty flexible container 1 EACH IV (09:24)
== END 2025-06-21 23:59 | disposition home or self-care (01) ==
PROVIDERS: PCP Family Medicine; Visit Provider Family Medicine
DX: G72.49 Other inflammatory and immune myopathies, not elsewhere classified (principal); Z79.899 Other long term (current) drug therapy; Z79.620 Long term (current) use of immunosuppressive biologic
CPT/HCPCS: 96365; 96366; J1561; J9999